=== PATIENT | female | born 1975 | race Two or more races ===

== ENCOUNTER 2019-12-09 15:38 | Outpatient (REF) | payer MEDICAID, SELFPAY ==
--- NOTE | 2019-12-09 | US_ITS ---
EXAMINATION: LOWER EXTREMITY VENOUS ULTRASOUND, RIGHT CLINICAL INFORMATION: Pain and swelling COMPARISON: None. TECHNIQUE: Doppler spectral analysis and color flow Doppler imaging was performed of the lower extremity. Compression and augmentation maneuvers were performed. FINDINGS: The visualized right common femoral, femoral, popliteal veins demonstrate normal compressibility and color fill-in without evidence of venous thrombosis. Visualized portions of the mid calf veins demonstrate normal color fill-in suggesting patency. ADDITIONAL FINDINGS: None. IMPRESSION: No evidence for right lower extremity deep vein thrombosis.
== END 2019-12-09 15:39 | disposition home or self-care (01) ==
LOC: HO.HMGCX 15:38
PROVIDERS: Absent Provider Family Medicine; PCP Family Medicine; Visit Provider Emergency Medicine
DX: M79.89 Other specified soft tissue disorders (principal)
CPT/HCPCS: 93971

== ENCOUNTER 2019-12-23 10:13 | Outpatient (REF) | payer MEDICAID, SELFPAY ==
--- NOTE | 2019-12-23 10:18 | XR_ITS ---
EXAMINATION: XR KNEES, STANDING AP XR KNEE, RIGHT XR KNEE, LEFT CLINICAL INFORMATION: Bilateral primary osteoarthritis knees. COMPARISON: Bilateral standing AP knees 11/19/2018, radiographs right knee 10/15/2018. TECHNIQUE: Each knee is imaged in standing AP, lateral, and axial patella views. There are 3 views of each side in a total of 6 views. FINDINGS: The right knee shows osteoarthritic changes greatest medial and lateral knee joint compartments with joint narrowing and osteophytes involving the femoral condyles and tibial plateau and posterior patella. There is borderline medial subluxation distal femur. Axial view patella shows no significant lateralization. There is no suprapatellar effusion. Hoffa's fat pad appears normal. Bony mineralization is normal. There is no destructive process. The left knee shows osteoarthritic changes greatest medial and lateral compartments of slightly lesser severity than that seen on the right. There are osteophytes involving the femoral condyles and tibial plateau and posterior patella. There is borderline medial subluxation distal femur. Axial view patella shows no lateralization. No suprapatellar effusion. Hoffa's fat pad is unremarkable. There is no destructive process. Normal bony mineralization. IMPRESSION: 1. Bilateral tricompartment osteoarthritis greatest medial lateral compartments, and greater on the right. 2. No suprapatellar effusion. No destructive process.
== END 2019-12-23 10:14 | disposition home or self-care (01) ==
LOC: HO.XRAY 10:13
PROVIDERS: PCP Family Medicine; Referring Provider Family Medicine; Visit Provider Orthopaedic Surgery
DX: M17.0 Bilateral primary osteoarthritis of knee (principal)
CPT/HCPCS: 20610; 73560; 73565; 99214; J1100

== ENCOUNTER 2020-11-04 17:07 | Emergency (ER) | payer MEDICAID, SELFPAY ==
[2020-11-04 17:29] VITALS: BP 141/68; PULSE 79; RESP 17; TEMP 37.1; O2SAT 95; BMI 53.1
--- NOTE | 2020-11-04 17:40 | ED.FEMALEGU ---
HPI - Female Genitourinary General Chief complaint: Urogenital-Female Stated complaint: yeast infection Time Seen by Provider: 11/04/20 17:40 History of Present Illness HPI Narrative: Patient complains of some burning with urination as well as a whitish odor is vaginal discharge there is no pelvic pain no abdominal pain no flank pain no back pain no fever no nausea no vomiting Related Data Previous Rx's Medication Instructions Recorded metronidazole 500 mg tablet 500 mg PO BID #14 tab 11/04/20 (Flagyl) Allergies Allergy/AdvReac Type Severity Reaction Status Date / Time No Known Allergies Allergy Verified 12/23/19 10:48 [No Known Allergies*] IV contrast Allergy Unknown unknown Uncoded 12/23/19 10:48 pollen Allergy Unknown unknown Uncoded 12/23/19 10:48 Review of Systems Review of Systems: Positive for vaginal discharge and dysuria Negatives are no fever no chills no headache no neck pain no chest pain or shortness of breath no abdominal pain no pelvic pain no nausea or vomiting no skin rash Yes all other systems are reviewed and are negative PMFSH Past Medical History Source: nursing notes reviewed Medical History Asthenia Bilateral primary osteoarthritis of knee HIV (human immunodeficiency virus infection) Social History Social History Alcohol intake: never Advance Directives: No Advance Directives Information Provided: No Patient : No Current occupational status: disabled Current occupation: Right Handed Physical Exam Vital Signs: Vital Signs: Last Vital Signs Temp 98.8 F 11/04/20 17:29 Pulse 79 11/04/20 17:29 Resp 17 11/04/20 17:29 BP 141/68 H 11/04/20 17:29 Pulse Ox 95 11/04/20 17:29 Body Mass Index 53.1 General appearance no acute distress Head is normocephalic atraumatic Neck is supple Respiratory no distress Abdomen soft nontender, no CVA tenderness The back full range of motion no tenderness Extremities for range of motion x4 Skin no rash Pelvic exam is deferred Course Course Course Narrative: Patient self swab for bacterial vaginosis From description of her discharge she is given Flagyl and Diflucan tablet The patient remains comfortable well-appearing and stable throughout the visit With urine still pending case is signed out to physician assistant blanco to evaluate for whether not there is urinary tract infection and dispo the patient Discharge Plan Discharge Clinical Impression: Vaginal discharge Patient Disposition: Home, Self-Care Additional Instructions: We treated for possible yeast infection with a dose of Diflucan We are also treating vaginal discharge with antibiotic Flagyl Follow with operations management professionals or primary doctor if not improved Return any time any worse condition or any concerns Prescriptions: New metronidazole [Flagyl] 500 mg tablet 500 mg PO BID Qty: 14 RF: 0 Referrals: Gregory Greenfield MD [Physician] - 10 days (Vaginal discharge)
[2020-11-04 19:03] LABS: Glucose Urine UA NEG (NEG); Leukocyte Esterase Urine NEG (NEG); Nitrite Urine NEG (NEG); Specific Gravity - Urine <= 1.005 (1.005-1.025); Urine Blood NEG (NEG); Urine Ketones NEG (NEG); Urine Protein NEG (NEG-TRACE)
[2020-11-04 19:04] LABS: Appearance Urine CLEAR; Color Urine STRAW
[2020-11-04 19:06] LABS: UPreg QC Valid YES; Urine Pregnancy NEGATIVE (NEGATIVE)
[2020-11-04] MEDS: Fluconazole 150 MG TABLET PO (19:21)
--- NOTE | 2020-11-04 19:30 | PC.NURSE ---
PT DID NOT GIVE PROBE KAELA URINE. PT DOES NOT WANT TO DO THE TEST. REFUSING. PROVIDER AWARE. OK TO D/C.
[2020-11-05 08:45] LABS: BV Int Neg Control Negative (Negative); BV Int Pos Control Positive (Positive)
== END 2020-11-04 19:40 | disposition home or self-care (01) ==
PROVIDERS: Physician Assistant Medical; Emergency Provider Internal Medicine
DX: N89.8 Other specified noninflammatory disorders of vagina (principal); B20 Human immunodeficiency virus [HIV] disease
CPT/HCPCS: 81003; 81025; 87480; 87510; 87660; 99283; 99284

== ENCOUNTER → 2020-11-16 12:10 | Outpatient (BNVA) | payer MEDICAID, SELFPAY | PROVIDERS: PCP Internal Medicine; Visit Provider Orthopaedic Surgery | DX: M17.0 Bilateral primary osteoarthritis of knee (principal) | CPT/HCPCS: 20610; 99212; J1100 ==

== ENCOUNTER 2021-07-12 09:19 | Outpatient (REF) | payer MEDICAID, SELFPAY ==
--- NOTE | ~2021-07-12 | XR_ITS ---
EXAMINATION: BILATERAL KNEE X-RAY CLINICAL INFORMATION: Bilateral knee pain COMPARISON: Previous exam most recent December 2019 TECHNIQUE: 3 views of each knee FINDINGS: Right: There is varus angulation. No fracture or dislocation is seen. There is marked medial femoral tibial joint space narrowing. There are osteophytes at the lateral femoral tibial and patellofemoral joints. There may be lateral subluxation of the patella on the sunrise view. There is no joint effusion. Left: Bone alignment is normal. No fracture or dislocation is seen. There is medial femoral tibial joint space narrowing. There are osteophytes at the lateral femoral tibial and patellofemoral joints. There may be lateral subluxation of the patella on the sunrise view. Evaluation for joint effusion is limited due to light film technique. No significant joint effusion is seen. XR/XR knee standing BI IMPRESSION: Bilateral arthritis.
--- NOTE | ~2021-07-12 | XR_ITS ---
EXAMINATION: BILATERAL KNEE X-RAY CLINICAL INFORMATION: Bilateral knee pain COMPARISON: Previous exam most recent December 2019 TECHNIQUE: 3 views of each knee FINDINGS: Right: There is varus angulation. No fracture or dislocation is seen. There is marked medial femoral tibial joint space narrowing. There are osteophytes at the lateral femoral tibial and patellofemoral joints. There may be lateral subluxation of the patella on the sunrise view. There is no joint effusion. Left: Bone alignment is normal. No fracture or dislocation is seen. There is medial femoral tibial joint space narrowing. There are osteophytes at the lateral femoral tibial and patellofemoral joints. There may be lateral subluxation of the patella on the sunrise view. Evaluation for joint effusion is limited due to light film technique. No significant joint effusion is seen. XR/XR knee LT 2V IMPRESSION: Bilateral arthritis.
--- NOTE | ~2021-07-12 | XR_ITS ---
EXAMINATION: BILATERAL KNEE X-RAY CLINICAL INFORMATION: Bilateral knee pain COMPARISON: Previous exam most recent December 2019 TECHNIQUE: 3 views of each knee FINDINGS: Right: There is varus angulation. No fracture or dislocation is seen. There is marked medial femoral tibial joint space narrowing. There are osteophytes at the lateral femoral tibial and patellofemoral joints. There may be lateral subluxation of the patella on the sunrise view. There is no joint effusion. Left: Bone alignment is normal. No fracture or dislocation is seen. There is medial femoral tibial joint space narrowing. There are osteophytes at the lateral femoral tibial and patellofemoral joints. There may be lateral subluxation of the patella on the sunrise view. Evaluation for joint effusion is limited due to light film technique. No significant joint effusion is seen. XR/XR knee RT 2V IMPRESSION: Bilateral arthritis.
== END 2021-07-12 09:20 | disposition home or self-care (01) ==
LOC: HO.HOSX 09:19
PROVIDERS: PCP Internal Medicine; Visit Provider Orthopaedic Surgery
DX: M17.0 Bilateral primary osteoarthritis of knee (principal)
CPT/HCPCS: 20610; 73560; 73565; 99212; J1100

== ENCOUNTER 2021-08-11 11:05 | Emergency (ER) | payer MEDICAID, SELFPAY ==
--- NOTE | ~2021-08-11 | CT_ITS ---
EXAMINATION: CT ABDOMEN AND PELVIS WITHOUT CONTRAST CLINICAL INFORMATION: Left lower quadrant pain COMPARISON: 01/01/2019 TECHNIQUE: Multidetector volumetric imaging was performed from the superior aspect of the liver through the pubic symphysis. Sagittal and coronal reformatted images were obtained on the technologist's workstation. This CT examination was performed using dose optimization techniques as appropriate, variously including the following: *Automated exposure control *Adjustment of mA and/or kV according to patient size (this includes techniques or standardized protocols for targeted exams where dose is matched to indication/reason for exam; i.e. extremities or head) *Use of iterative reconstruction technique DLP: 1502 mGy-cm FINDINGS: LUNG BASES: Mild bilateral atelectasis right greater than left. LIVER, GALLBLADDER, AND BILIARY TREE: The liver is normal in size, shape, and attenuation. No focal hepatic lesion or biliary ductal dilatation is present. The gallbladder is unremarkable with no evidence of radiopaque gallstones, gallbladder wall thickening, or obvious pericholecystic inflammatory changes. PANCREAS: Unremarkable. SPLEEN: Unremarkable. There is no evidence for a suspicious fluid collection. There are scattered diverticula disease in the colon but no evidence for diverticulitis. ADRENAL GLANDS: Unremarkable. KIDNEYS AND URETERS: The kidneys are normal in size, shape, and attenuation. No hydronephrosis, hydroureter, or calculi seen. No perinephric stranding. BLADDER: Unremarkable. GASTROINTESTINAL TRACT: The bowel pattern is felt to be nonobstructing. There is no free fluid. ABDOMINAL WALL: Once again omental herniation of fat in the upper abdominal wall. Not significantly changed from previous. This does not contain bowel. LYMPH NODES: Normal. VASCULAR: Unremarkable. PELVIC VISCERA: Once again density in left adnexa may well represent ovarian tissue. Differential would include prominent lymph node but similar to previous.. Higher in the adnexa on the left another structure is seen measuring 2.1 x 1.1 cm. Again difficult to say if this was present previously as the uterus is occupying the region. Higher in the pelvis on the right there is a structure of indeterminate etiology. This is measuring 3.1 x 2.5 cm. Etiology is indeterminate. This could be related to the uterine ligamental. Difficult to say if it was present previously as previously the patient's uterus was contacted is now been removed. OSSEOUS STRUCTURES: Unremarkable. CT/CT abdomen pelvis wo con IMPRESSION: Diverticula disease mild in the sigmoid but no evidence for diverticulitis. The bowel pattern is nonobstructing. There is no suspicious fluid collection. As described solid-appearing structures in the high adnexal regions bilaterally of indeterminate etiology. This could be related to the uterine ligaments.. Differential would include ovarian tissue versus other. There has been hysterectomy from the previous exam and difficult to evaluate if these structures were present previously. Etiology of these structures is indeterminate. I would in the least recommend follow-up study to continue evaluation. 3 months. Consider MR of the pelvis pre and postcontrast for definitive evaluation at this time. Ultrasound may also be helpful but difficult exam due to the patient body habitus In the lower region on the left structure is seen which may represent a prominent node but this is similar to previous exam. Attention to follow-up as well. Fleischner guidelines were followed.
[2021-08-11 11:07] VITALS: BP 127/71; PULSE 86; RESP 18; TEMP 36.4; O2SAT 97; BMI 60.3
--- NOTE | 2021-08-11 11:39 | ED_ITS ---
HPI - Abdominal Pain General Chief Complaint: Abdominal Pain Stated Complaint: Lower abd pain Time Seen by Provider: 08/11/21 11:30 Source: patient Mode of arrival: ambulatory Limitations: no limitations History of Present Illness HPI narrative: Patient comes to the emergency room complaining left lower quadrant pain and suprapubic pain. Patient states she has that she has been having intermittent abdominal pain for several weeks. Patient also complaining of dysuria, no hematuria, no fever or chills, no flank pain. Patient states that she is currently taking penicillin 500 mg b.i.d. for a dental infection. Related Data Previous Rx's Medication Instructions Recorded metronidazole 500 mg tablet 500 mg PO BID #14 tabs 11/04/20 (Flagyl) ibuprofen 600 mg tablet 600 mg PO TID PRN pain #20 tabs 08/11/21 Allergies Allergy/AdvReac Type Severity Reaction Status Date / Time No Known Allergies Allergy Verified 07/12/21 09:24 [No Known Allergies*] IV contrast Allergy Unknown unknown Uncoded 07/12/21 09:24 pollen Allergy Unknown unknown Uncoded 07/12/21 09:24 Review of Systems Review of Systems Constitutional : No Weight loss, No Fever, No Chills, No Night Sweats, No Fatigue, No Malaise ENT/Mouth : No Hearing loss, No Ear Pain, No Nasal Congestion, No Sinus Pain, No Hoarseness, No sore throat, No Rhinorrhea, No Swallowing Difficulty Eyes: No Eye Pain, No Swelling, No Redness, No Foreign Body, No Discharge, No Vision Changes Cardiovascular : No Chest Pain, No SOB, No Dyspnea on Exertion, No Orthopnea, No Edema, No Palpitations Respiratory : No Cough, No Sputum, No Wheezing, No Smoke Exposure, No Dyspnea Gastrointestinal : No Nausea, No Vomiting, No Diarrhea, No Constipation, complaining of left lower quadrant pain and suprapubic pain Genitourinary : no irregular bleeding, No Dysuria, No Urinary Frequency, No Hematuria, No Urinary Incontinence, No Urgency, No Flank Pain, No Urinary Flow Changes, No Hesitancy Musculoskeletal : No joint pain, No Myalgias, No Joint Swelling Skin : No Skin Lesions, No rash Neuro : No Weakness, No Numbness, No Paresthesias, No Loss of Consciousness, No Dizziness, No Headache Psych : No Anxiety/Panic, No Depression, No SI/HI/AH/VH, No Social Issues, Heme/Lymph: No Bruising, No Bleeding,No Lymphadenopathy Endocrine : No Polyuria, No Polydipsia, No Temperature Intolerance [facility] Past Medical History Medical History Asthenia Bilateral primary osteoarthritis of knee HIV (human immunodeficiency virus infection) Social History Social History Alcohol intake: never Advance Directives: No Advance Directives Information Provided: No Current occupational status: disabled Current occupation: Right Handed Physical Exam ED Vital Signs: Vital Signs - 24 hr 08/11/21 11:07 08/11/21 17:12 08/11/21 19:24 Temperature 97.6 F 98.5 F Pulse Rate 86 59 65 Respiratory Rate 18 14 16 Blood Pressure 127/71 161/88 H 152/81 H Pulse Oximetry 97 98 98 Oxygen Delivery Method Room Air Room Air Room Air BMI result Body Mass Index 60.3 Const Other: Appearance: Alert. Oriented X3. No acute distress. Eyes: Pupils equal, round and reactive to light. ENT: Pharynx normal. Neck: Normal inspection. Neck supple. No lymph nodes noted. No crepitus CVS: Normal heart rate and rhythm. Pulses normal. Normal S1 and S2 Respiratory: No respiratory distress. Breath sounds normal. No Wheezing. No rales Abdomen: Soft , tenderness to palpation in the left lower quadrant and suprapubic area. No rebound, guarding Skin: Skin warm and dry. Normal skin color. Normal skin turgor. Extremities: No lower extremity edema. No Lacerations. No Rash Neuro: Oriented X 3. No motor deficit. No sensory deficit. Moving all extremities. No slurred speech. CN 2 through 12 grossly intact Psych: calm, cooperative, normal affect Course Course Course Narrative: Patient receiving IV fluids and Toradol. Labs and imaging pending No acute findings on labs and imaging. Patient's pain likely musculoskeletal, muscular versus the ligament. CT scan was difficult to evaluate. However, it is known that patient has had hysterectomy. If patient continues having discomfort, she may need an MRI MDM - Abdominal Pain Lab Data Result diagrams: 08/11/21 12:08 08/11/21 12:08 Labs: Lab Results 08/11/21 08/11/21 08/11/21 Range/Units 12:08 12:08 12:08 WBC 2.5 L (4.8-10.8) X10*3/uL RBC 4.52 (4.20-5.50) X10*6/uL Hgb 13.4 (12.0-16.0) g/dl Hct 40.7 (37.0-47.0) % MCV 90.0 (80.0-98.0) fL MCH 29.6 (27.0-33.0) pg MCHC 32.9 (31.0-35.0) g/dl RDW 13.2 (11.0-16.0) % Plt Count 198 (160-400) X10*3/uL MPV 11.1 (9.4-12.3) fL Immature Gran % (Auto) 1.2 H (0.0-0.4) % Neut % (Auto) 33.5 L (45-73) % Lymph % (Auto) 51.0 H (20-40) % [place] % (Auto) 10.7 (2-11) % Eos % (Auto) 2.8 (0-4) % Baso % (Auto) 0.8 (0-2) % Lymph # (Auto) 1.3 (1.2-4.9) X10*3/uL [place] # (Auto) 0.3 (0.1-1.2) X10*3/uL Eos # (Auto) 0.1 (0.0-0.4) X10*3/uL Baso # (Auto) 0.0 (0.0-0.2) X10*3/uL Abs Immat Gran (auto) 0.03 (0.00-0.03) X10*3/uL Absolute Neuts (auto) 0.9 L (2.0-8.3) x10*3/uL Absolute Nucleated RBC 0.000 (0.0-0.012) X10*3/uL Nucleated RBC % (auto) 0.0 (0.0-0.2) /100WBC Smear Tech's Comments VERIFIED Sodium 139 (135-145) mmol/L Potassium 3.9 (3.3-5.1) mmol/L Chloride 105 (96-108) mmol/L Carbon Dioxide 26 (22-29) mmol/L Anion Gap 12 (12-20) BUN 12 (9-16) mg/dL Creatinine 0.85 (0.5-1.4) mg/dL Estim Creat Clear Calc 116.1 Estimated GFR > 60 Random Glucose 113 (60-115) mg/dL Calcium 9.2 (8.4-10.2) mg/dL Total Bilirubin 0.3 (0.0-1.0) mg/dL Direct Bilirubin < 0.2 (0.0-0.5) mg/dL AST 29 (5-31) U/L ALT 33 H (0-31) U/L Alkaline Phosphatase 61 (39-117) U/L Total Protein 7.3 (6.5-8.0) g/dL Albumin 3.8 (3.5-5.0) g/dL Beta HCG, Quant < 2 mIU/mL Urine Color Urine Appearance Urine pH (5.0-8.0) Ur Specific [place] (1.005-1.025) Urine Protein (NEG-TRACE) MG/DL Urine Glucose (UA) (NEG) MG/DL Urine Ketones (NEG) MG/DL Urine Blood (NEG) Urine Nitrite (NEG) Ur Leukocyte Esterase (NEG) 08/11/21 Range/Units 19:29 WBC (4.8-10.8) X10*3/uL RBC (4.20-5.50) X10*6/uL Hgb (12.0-16.0) g/dl Hct (37.0-47.0) % MCV (80.0-98.0) fL MCH (27.0-33.0) pg MCHC (31.0-35.0) g/dl RDW (11.0-16.0) % Plt Count (160-400) X10*3/uL MPV (9.4-12.3) fL Immature Gran % (Auto) (0.0-0.4) % Neut % (Auto) (45-73) % Lymph % (Auto) (20-40) % [place] % (Auto) (2-11) % Eos % (Auto) (0-4) % Baso % (Auto) (0-2) % Lymph # (Auto) (1.2-4.9) X10*3/uL [place] # (Auto) (0.1-1.2) X10*3/uL Eos # (Auto) (0.0-0.4) X10*3/uL Baso # (Auto) (0.0-0.2) X10*3/uL Abs Immat Gran (auto) (0.00-0.03) X10*3/uL Absolute Neuts (auto) (2.0-8.3) x10*3/uL Absolute Nucleated RBC (0.0-0.012) X10*3/uL Nucleated RBC % (auto) (0.0-0.2) /100WBC Smear Tech's Comments Sodium (135-145) mmol/L Potassium (3.3-5.1) mmol/L Chloride (96-108) mmol/L Carbon Dioxide (22-29) mmol/L Anion Gap (12-20) BUN (9-16) mg/dL Creatinine (0.5-1.4) mg/dL Estim Creat Clear Calc Estimated GFR Random Glucose (60-115) mg/dL Calcium (8.4-10.2) mg/dL Total Bilirubin (0.0-1.0) mg/dL Direct Bilirubin (0.0-0.5) mg/dL AST (5-31) U/L ALT (0-31) U/L Alkaline Phosphatase (39-117) U/L Total Protein (6.5-8.0) g/dL Albumin (3.5-5.0) g/dL Beta HCG, Quant mIU/mL Urine Color YELLOW Urine Appearance HAZY Urine pH 5.5 (5.0-8.0) Ur Specific [place] >= 1.030 H (1.005-1.025) Urine Protein TRACE (NEG-TRACE) MG/DL Urine Glucose (UA) NEG (NEG) MG/DL Urine Ketones NEG (NEG) MG/DL Urine Blood NEG (NEG) Urine Nitrite NEG (NEG) Ur Leukocyte Esterase NEG (NEG) Imaging Data CT scan - abdomen: Radiologist's impression: FINDINGS: LUNG BASES: Mild bilateral atelectasis right greater than left.? LIVER, GALLBLADDER, AND BILIARY TREE: The liver is normal in size, shape, and attenuation. No focal hepatic lesion or biliary ductal dilatation is present. The gallbladder is unremarkable with no evidence of radiopaque gallstones, gallbladder wall thickening, or obvious pericholecystic inflammatory changes.? PANCREAS: Unremarkable.? SPLEEN: Unremarkable. There is no evidence for a suspicious fluid collection. There are scattered diverticula disease in the colon but no evidence for diverticulitis. ADRENAL GLANDS: Unremarkable.? KIDNEYS AND URETERS: The kidneys are normal in size, shape, and attenuation. No hydronephrosis, hydroureter, or calculi seen. No perinephric stranding. ? BLADDER: Unremarkable.? GASTROINTESTINAL TRACT: The bowel pattern is felt to be nonobstructing. There is no free fluid.? ABDOMINAL WALL: Once again omental herniation of fat in the upper abdominal wall. Not significantly changed from previous. This does not contain bowel. LYMPH NODES: Normal. VASCULAR: Unremarkable. PELVIC VISCERA: Once again density in left adnexa may well represent ovarian tissue. Differential would include prominent lymph node but similar to previous.. Higher in the adnexa on the left another structure is seen measuring 2.1 x 1.1 cm. Again difficult to say if this was present previously as the uterus is occupying the region. Higher in the pelvis on the right there is a structure of indeterminate etiology. This is measuring 3.1 x 2.5 cm. Etiology is indeterminate. This could be related to the uterine ligamental. Difficult to say if it was present previously as previously the patient's uterus was contacted is now been removed. OSSEOUS STRUCTURES: Unremarkable.? CT/CT abdomen pelvis wo con IMPRESSION: Diverticula disease mild in the sigmoid but no evidence for diverticulitis. The bowel pattern is nonobstructing. There is no suspicious fluid collection. ? As described solid-appearing structures in the high adnexal regions bilaterally of indeterminate etiology. This could be related to the uterine ligaments.. Differential would include ovarian tissue versus other. There has been hysterectomy from the previous exam and difficult to evaluate if these structures were present previously. Etiology of these structures is indeterminate. I would in the least recommend follow-up study to continue evaluation. 3 months. Consider MR of the pelvis pre and postcontrast for definitive evaluation at this time. Ultrasound may also be helpful but difficult exam due to the patient body habitus ? In the lower region on the left structure is seen which may represent a prominent node but this is similar to previous exam. Attention to follow-up as well. ? ? ? Fleischner guidelines were followed. Discharge Plan Discharge Clinical Impression: Abdominal pain Patient Disposition: Home, Self-Care Instructions: Abdominal Pain (ED) Additional Instructions: Please follow-up with your primary care physician tomorrow. If you have any worsening or new symptoms, please return to the emergency room or call [phone] Prescriptions: New ibuprofen 600 mg tablet 600 mg PO TID PRN (Reason: pain) Qty: 20 0RF No Action metronidazole [Flagyl] 500 mg tablet 500 mg PO BID Qty: 14 0RF
[2021-08-11] MEDS: Ketorolac Tromethamine 30 MG/ML VIAL IVPUSH (12:08)
[2021-08-11 12:17] LABS: Basophils Percent Auto 0.8 % (0-2); Eosinophils Absolute Auto 0.1 X10*3/uL (0.0-0.4); Eosinophils Percent Auto 2.8 % (0-4); Hematocrit 40.7 % (37.0-47.0); Hemoglobin 13.4 g/dl (12.0-16.0); Imm Gran Abs Auto 0.03 X10*3/uL (0.00-0.03); Imm Gran Pct Auto 1.2 % (0.0-0.4); Lymphocytes Absolute Auto 1.3 X10*3/uL (1.2-4.9); MANUAL DIFF FLAG SCAN; Mean Corpuscular HGB Conc 32.9 g/dl (31.0-35.0); Mean Corpuscular Hemoglobin 29.6 pg (27.0-33.0); Mean Platelet Volume 11.1 fL (9.4-12.3); Monocytes Absolute Auto 0.3 X10*3/uL (0.1-1.2); Monocytes Percent Auto 10.7 % (2-11); Neutrophils Absolute Auto 0.9 x10*3/uL (2.0-8.3); Neutrophils Percent Auto 33.5 % (45-73); Platelet Count 198 X10*3/uL (160-400); Red Blood Count 4.52 X10*6/uL (4.20-5.50); Red Cell Distribution Width 13.2 % (11.0-16.0); SCAN SMEAR FLAG 1
[2021-08-11 12:21] LABS: White Blood Count 2.5 X10*3/uL (4.8-10.8)
[2021-08-11 12:35] LABS: Anion Gap 12 (12-20); Blood Urea Nitrogen 12 mg/dL (9-16); Calcium 9.2 mg/dL (8.4-10.2); Carbon Dioxide 26 mmol/L (22-29); Chloride 105 mmol/L (96-108); Creatinine Clr Calc Pharmacy 116.1; Estimated Glomerular Filt Rate > 60; Glucose Random 113 mg/dL (60-115); Potassium 3.9 mmol/L (3.3-5.1); Sodium 139 mmol/L (135-145)
[2021-08-11 12:36] LABS: SLIDE REVIEW VERIFIED
[2021-08-11 12:39] LABS: Alanine Aminotransferase 33 U/L (0-31); Albumin Level 3.8 g/dL (3.5-5.0); Alkaline Phosphatase 61 U/L (39-117); Aspartate Amino Transferase 29 U/L (5-31); Bilirubin Direct < 0.2 mg/dL (0.0-0.5); Bilirubin Total 0.3 mg/dL (0.0-1.0); Total Protein 7.3 g/dL (6.5-8.0)
[2021-08-11 12:45] LABS: HCG Quantitative < 2 mIU/mL
[2021-08-11 17:12] VITALS: BP 161/88; PULSE 59; RESP 14; O2SAT 98
[2021-08-11 19:24] VITALS: BP 152/81; PULSE 65; RESP 16; TEMP 36.9; O2SAT 98
[2021-08-11 19:38] LABS: Appearance Urine HAZY; Color Urine YELLOW; Glucose Urine UA NEG (NEG); Leukocyte Esterase Urine NEG (NEG); Nitrite Urine NEG (NEG); PH 5.5 (5.0-8.0); Specific Gravity - Urine >= 1.030 (1.005-1.025); Urine Blood NEG (NEG); Urine Ketones NEG (NEG); Urine Protein TRACE MG/DL (NEG-TRACE)
== END 2021-08-11 20:14 | disposition home or self-care (01) ==
PROVIDERS: Emergency Provider Emergency Medicine; PCP Internal Medicine
DX: R10.32 Left lower quadrant pain (principal)
CPT/HCPCS: 36415; 74176; 80048; 81003; 82248; 84702; 85025; 96374; 99284; J1885

== ENCOUNTER 2021-08-18 07:28 | Outpatient (REF) | payer MEDICAID, SELFPAY | END 2021-08-18 07:29 | disposition home or self-care (01) | LOC: HO.RADIR 07:28 | PROVIDERS: Visit Provider Internal Medicine | DX: M17.0 Bilateral primary osteoarthritis of knee (principal); Z53.9 Procedure and treatment not carried out, unspecified reason | CPT/HCPCS: J1020 ==

== ENCOUNTER → 2021-12-23 09:01 | Outpatient (BNVA) | payer MEDICAID, SELFPAY | PROVIDERS: PCP Internal Medicine; Visit Provider Orthopaedic Surgery | DX: M17.0 Bilateral primary osteoarthritis of knee (principal); E66.01 Morbid (severe) obesity due to excess calories; L98.7 Excessive and redundant skin and subcutaneous tissue; B20 Human immunodeficiency virus [HIV] disease; Z68.43 Body mass index [BMI] 50.0-59.9, adult | CPT/HCPCS: 99212 ==

== ENCOUNTER → 2022-02-02 11:05 | Outpatient (BNVA) | payer MEDICAID, SELFPAY | PROVIDERS: PCP Internal Medicine; Visit Provider Anesthesiology | DX: M17.0 Bilateral primary osteoarthritis of knee (principal); E66.01 Morbid (severe) obesity due to excess calories; Z68.43 Body mass index [BMI] 50.0-59.9, adult | CPT/HCPCS: 99202 ==

== ENCOUNTER 2022-12-07 10:07 | Emergency (ER) | payer MEDICAID, SELFPAY ==
--- NOTE | ~2022-12-07 | XR_ITS ---
EXAMINATION: XR TIBIA AND FIBULA, RIGHT CLINICAL INFORMATION: Pain and swelling COMPARISON: None available. TECHNIQUE: AP and lateral views of the right tibia and fibula were obtained. FINDINGS: There is advanced narrowing of the medial joint space of the knee however the tibia and fibula are intact. Arthritic activity seen along the tibiotalar joint noted as well. XR/XR tibia fibula RT 2V IMPRESSION: No acute findings.
--- NOTE | ~2022-12-07 | XR_ITS ---
EXAMINATION: XR KNEE, RIGHT CLINICAL INFORMATION: Knee pain COMPARISON: None available. TECHNIQUE: Four views of the right knee. FINDINGS: There is severe medial degenerative change with joint space narrowing and marginal spurring, and subchondral sclerosis. In the right knee, no fracture, dislocation or destructive lesion or joint effusion. XR/XR knee RT 3V IMPRESSION: Advanced degenerative change. No acute abnormality.
--- NOTE | ~2022-12-07 | US_ITS ---
EXAMINATION: US VENOUS ULTRASOUND WITH DOPPLER LOWER EXTREMITY, RIGHT CLINICAL INFORMATION: Posterior calf pain COMPARISON: None available. TECHNIQUE: Ultrasound of the deep veins is performed from the hip to the calf with compression sonography and color and pulse Doppler assessment. Spectral analysis with color-flow imaging is performed. FINDINGS: There is normal venous compression and respiratory variation and augmented flow. The visualized common femoral vein, superficial femoral vein, profunda femoral vein, popliteal vein, and the trifurcation region shows no evidence of deep venous thrombosis. There is no significant popliteal fossa cyst. No abnormal fluid collections seen in the anterior glynn. If the patient's symptoms persist, followup ultrasound in 5 days 7 days might be of value to exclude proximal propagation from a non-visualized calf vein. US/US venous duplex LE RT IMPRESSION: No DVT demonstrated in the right lower extremity.
[2022-12-07 10:32] VITALS: BP 165/80; PULSE 78; RESP 20; TEMP 36.6; O2SAT 97; BMI 56.0
[2022-12-07 12:08] VITALS: BP 152/85; PULSE 62; RESP 18; TEMP 37; O2SAT 99
--- NOTE | 2022-12-07 13:41 | ED.LOWEXIN ---
HPI - Extremity Injury (Lower) General Chief Complaint: Extremity Injury, Lower Stated Complaint: R leg pain Time Seen by Provider: 12/07/22 12:01 Source: patient and RN notes reviewed Mode of arrival: ambulatory Limitations: no limitations History of Present Illness HPI Narrative: This is a 47-year-old female presenting to the emergency department with complaints of right knee pain, swelling, and calf tenderness x3 months. Patient states that 3 months ago she slipped on a slipper and fell backwards, and her leg went behind her and she fell on top of it. She has had continued pain since. She called Dr. Nichole to follow-up with him however she is unable to see him until next week. She states that she has had no other new injury or trauma. She states that she often times takes flights back and forth to [place] to see her partner. She denies any chest pain or shortness of breath. Has been taking Tylenol for her symptoms which has provided her with some relief. No other complaints or concerns at this time. complaint: knee injury and leg injury Onset (ago): month(s) Place: home Severity: moderate Relieving factors: nothing Exacerbating factors: nothing Associated symptoms: swelling Other symptoms: none Related Data Previous Rx's Medication Instructions Recorded metronidazole 500 mg tablet 500 mg PO BID #14 tabs 11/04/20 (Flagyl) ibuprofen 600 mg tablet 600 mg PO TID PRN pain #20 tabs 08/11/21 celecoxib 100 mg capsule 200 mg (2 x 100 mg) PO BID 30 days 07/21/22 #120 caps acetaminophen 325 mg tablet 650 mg (2 x 325 mg) PO QID PRN 12/07/22 (Tylenol) pain #30 tabs ibuprofen 800 mg tablet 800 mg PO Q8H PRN pain #30 tabs 12/07/22 Allergies Allergy/AdvReac Type Severity Reaction Status Date / Time IV contrast Allergy Unknown Anaphylaxis Uncoded 12/07/22 10:35 pollen Allergy Unknown unknown Uncoded 02/02/22 11:50 Review of Systems Review of Systems: Yes all other systems are reviewed and are negative Constitutional: Constitutional: Reports as per [facility] Past Medical History Medical History Asthenia Bilateral primary osteoarthritis of knee HIV (human immunodeficiency virus infection) Social History Social History Alcohol intake: never Smoked in Last 30 Days: No Use of substances other than those prescribed or required for medical reasons: No Advance Directives: No Advance Directives Information Provided: No Current occupational status: disabled Current occupation: Right Handed Physical Exam Vital Signs: Vital Signs: Last Vital Signs Temp 98.6 F 12/07/22 17:31 Pulse 60 12/07/22 17:31 Resp 16 12/07/22 17:31 BP 141/74 H 12/07/22 15:23 Pulse Ox 97 12/07/22 17:31 O2 Del Method Room Air 12/07/22 17:31 BMI result Body Mass Index 56.0 Const: General: cooperative, comfortable and no acute distress Orientation/consciousness: patient oriented x3 Limitations: no limitations HEENT: Head: Yes normal to inspection, Yes normocephalic and Yes atraumatic Ears: hearing grossly normal bilaterally General nose exam: Normal external nose present Face and sinus: Yes normal facial exam Mouth: Normal oral and palatal mucosa present, oropharynx normal and moist mucous membranes Throat: Yes posterior oropharynx normal Eyes: General: appearance normal, both eyes and all related structures Eyelids: Yes eyelids normal Conjunctivae: conjunctivae normal Sclerae: sclerae normal Pupils: Equal, round and reactive pupils present EOM: EOMs intact bilaterally Neck: Neck: Yes normal visual inspection, Yes full ROM and Yes no lymphadenopathy Lymphatic: no lymphadenopathy noted Chest: Chest palpation & inspection: normal inspection of the chest Resp: Effort & Inspection: normal respiratory effort and able to speak in complete sentences Auscultation: clear to auscultation bilaterally, no crackles, no rales, no rhonchi and no wheezes Cardio: Rate: regular rate Rhythm: regular rhythm Heart sounds: S1 normal heart sound present and S2 normal heart sound present GI: Inspection: Yes normal to inspection Skin: General skin exam: no rashes or lesions noted Trauma: no lacerations or abrasions Wounds: no wounds Neuro: General: patient oriented x3 and moves all extremities Cranial nerves: Yes Equal, round and reactive pupils present Extrem: Other: Right lower extremity is well perfused, patient has soft, non indurated region of swelling to her anterior glynn which is exquisitely tender to palpation. Patient is tenderness palpation along the right knee. Patient also has calf tenderness. Good DP pulses noted bilaterally. No overlying erythema General: Yes normal to inspection Right upper extremity: normal to inspection Left upper extremity: normal to inspection Right lower extremity: normal to inspection Left lower extremity: normal to inspection Course Reevaluation(s) Reevaluation #1: X-ray of tibia and fibula was unremarkable. There is advanced degenerative changes seen in the right knee. Ultrasound did not show any DVT. There is no abnormal fluid collections seen in the anterior glynn. Symptoms likely due to osteoarthritis of the right knee. Patient discharged on Tylenol and ibuprofen given return precautions. Patient stable for discharge. Time: 16:42 Medications Administered Discontinued Medications Generic Name Dose Route Start Last Admin Trade Name Freq PRN Reason Stop Dose Admin Oxycodone HCl 5 mg 12/07/22 13:36 12/07/22 14:00 Oxycodone Hcl Immed Release 5 Mg Tablet PO 12/07/22 13:37 5 mg ONCE ONE Administration Medical Decision Making Medical Decision Making [facility] Narrative: 47-year-old female presenting to the emergency department with complaints of right knee pain, swelling, and calf tenderness x3 months. Patient had traumatic event which occurred 3 months ago which caused her to do her leg. She has had swelling since. Differential diagnoses include calf strain, contusion, hematoma, fracture. Less likely compartment syndrome. Plan: Tib-fib x-ray, knee x-ray, ultrasound right lower extremity Differential Diagnosis Differential Diagnoses: The differential diagnosis associated with the presentation includes See above Admission/Observation Consideration of admission/observation: Escalation of care including admission/observation considered Patient would have been admitted to the hospital had her work up had any findings where hospital admission was appropriate and her clinical presentation warranted hospital admission. Radiology Impression Discussion of test interpretation with radiology: I have reviewed the radiologist's reading. Radiologist Impression: EXAMINATION: XR TIBIA AND FIBULA, RIGHT CLINICAL INFORMATION: Pain and swelling COMPARISON: None available. TECHNIQUE: AP and lateral views of the right tibia and fibula were obtained. FINDINGS: There is advanced narrowing of the medial joint space of the knee however the tibia and fibula are intact. Arthritic activity seen along the tibiotalar joint noted as well. XR/XR tibia fibula RT 2V IMPRESSION: No acute findings. Dictated By: Gurdeep Russ MD EXAMINATION: XR KNEE, RIGHT CLINICAL INFORMATION: Knee pain COMPARISON: None available. TECHNIQUE: Four views of the right knee. FINDINGS: There is severe medial degenerative change with joint space narrowing and marginal spurring, and subchondral sclerosis. In the right knee, no fracture, dislocation or destructive lesion or joint effusion. XR/XR knee RT 3V IMPRESSION: Advanced degenerative change. No acute abnormality. Dictated By: Gurdeep Russ MD EXAMINATION: US VENOUS ULTRASOUND WITH DOPPLER LOWER EXTREMITY, RIGHT CLINICAL INFORMATION: Posterior calf pain COMPARISON: None available. TECHNIQUE: Ultrasound of the deep veins is performed from the hip to the calf with compression sonography and color and pulse Doppler assessment. Spectral analysis with color-flow imaging is performed. FINDINGS: There is normal venous compression and respiratory variation and augmented flow. The visualized common femoral vein, superficial femoral vein, profunda femoral vein, popliteal vein, and the trifurcation region shows no evidence of deep venous thrombosis. There is no significant popliteal fossa cyst. No abnormal fluid collections seen in the anterior glynn. If the patient's symptoms persist, followup ultrasound in 5 days 7 days might be of value to exclude proximal propagation from a non-visualized calf vein. US/US venous duplex LE RT IMPRESSION: No DVT demonstrated in the right lower extremity. Dictated By: Gurdeep Russ MD Discharge Plan Discharge Clinical Impression: Knee pain, right Patient Disposition: Home, Self-Care Instructions: Knee Pain (ED) Additional Instructions: You have severe arthritis in your right knee which is causing you to have your pain. Please follow-up with Dr. Nichole as scheduled and several days. Gentle range of motion, massage, ice can also help with your symptoms. If any new or worsening symptoms occur including but not limited to chest pain or shortness breath, please return for re-evaluation. Prescriptions: New ibuprofen 800 mg tablet 800 mg PO Q8H PRN (Reason: pain) Qty: 30 0RF acetaminophen [Tylenol] 325 mg tablet 650 mg PO QID PRN (Reason: pain) Qty: 30 0RF No Action celecoxib 100 mg capsule 200 mg PO BID 30 Days Qty: 120 4RF metronidazole [Flagyl] 500 mg tablet 500 mg PO BID Qty: 14 0RF ibuprofen 600 mg tablet 600 mg PO TID PRN (Reason: pain) Qty: 20 0RF Interventions: ED Discharge Assessment Last Done: 12/07/22 17:32 Discharge Date/Time: 12/07/22 17:32
[2022-12-07] MEDS: oxyCODONE HCl Immed Release 5 MG TABLET PO (14:00)
[2022-12-07 15:23] VITALS: BP 141/74; PULSE 64; RESP 14; TEMP 36.2; O2SAT 97
[2022-12-07 17:31] VITALS: PULSE 60; RESP 16; TEMP 37; O2SAT 97
== END 2022-12-07 17:32 | disposition home or self-care (01) ==
PROVIDERS: Emergency Provider Emergency Medicine; PCP Internal Medicine
DX: M25.561 Pain in right knee (principal); R60.0 Localized edema; Z79.899 Other long term (current) drug therapy
CPT/HCPCS: 73562; 73590; 93971; 99284

== ENCOUNTER 2022-12-15 11:10 | Outpatient (AMB) | payer MEDICAID, SELFPAY ==
--- NOTE | 2022-12-15 11:38 | MHC.OFFVIS ---
Intake Vital Signs 12/15/22 11:39 Height 5 ft 3 in Weight 316 lb BMI 56.0 Intake Visit Reasons: ov- Bilateral primary osteoarthritis of knee Intake Note: Monica is a 46 year old female who presents today for a follow up of her bilateral knee pain. Right worse than left. Patient reports that she is struggling with continued pain. Allergies IV contrast Allergy (Unknown, Uncoded 12/07/22 10:35) Anaphylaxis pollen Allergy (Unknown, Uncoded 02/02/22 11:50) unknown HPI ov- Bilateral primary osteoarthritis of knee HPI Details Monica is a 47 year old woman with bilateral knee OA, R>L. She returns with complaints of bilateral knee pain, R>L. She has pain with daily activity and feels limited in her ADLs. At her last appointment she was referred to Pain Management and told to continue to work on weight management in order to discuss surgery. Her current weight is 309lbs and she has been limited in her daily activities due to her pain & weakness. She says remaining active is difficult for her, and she has primarily been trying to eat smaller portions. She was seen in the ED on 12/07/22 with complaints of worsening right knee & calf pain. An ultrasound was performed and was negative for DVT. She denies any falls or known injury. She was prescribed Celebrex by Pain Management. She has a history of lap band surgery, but she could not tolerate the band and this was removed. She reports being hesitant to see Bariatrics again as she has a poor history with prior surgeries, including a hysterectomy. She has asthenia and HIV and is on medication for this. She uses a walker and has been on permanent disability since she was 17. [facility] Medical History (Updated 12/15/22 @ 11:54 by Luis A Snowden) Asthenia HIV (human immunodeficiency virus infection) Bilateral primary osteoarthritis of knee Social History Alcohol intake: never Current occupational status: disabled Current occupation: Right Handed Review of Systems Const All systems reviewed & are unremarkable except as noted in HPI and below Physical Exam Vital Signs: BMI result Body Mass Index 56.0 Const General: no acute distress, alert and awake Orientation/consciousness: patient oriented x3 HEENT Head: Yes normocephalic and Yes atraumatic Eyes EOM: EOMs intact bilaterally Resp Effort & Inspection: normal respiratory effort and able to speak in complete sentences Cardio Jugular venous distension: no JVD Skin General skin exam: turgor normal Rashes: no rashes Neuro General: patient oriented x3 Extrem Other: Bilateral Knees: gait antalgia medial compartement ttp Psych Appearance: grossly normal Affect: normal affect Attitude: cooperative Office Procedures Joint Injection/Drain Joint Injection/Drain Details: Injected 1 mL of Decadron and 3 mL 1% lidocaine and 3 mL of 0.25% Marcaine. Site was prepped using aseptic technique. Patient tolerated the procedure well. Primary Site: right knee Approach Used: anterolateral Coding 01745 - Large joint Procedure code (CPT) selection complete Results Reviewed Results Reviewed: 12/15/22 12:03 BUPivacaine MPF 0.25 % [Sensorcaine-MPF 0.25% 10 ML] 10 ml .ROUTE .STK-MED ONE Lidocaine HCl 2 % MPF [Xylocaine 2 % MPF] 5 ml .ROUTE .STK-MED ONE dexAMETHasone sod phosphate [Decadron] 4 mg .ROUTE .STK-MED ONE I personally reviewed relevant radiographs. Medial compartment narrowing and OA bilaterally Assessment & Plan Assessment & Plan (1) Bilateral primary osteoarthritis of knee: Code(s): M17.0 - Bilateral primary osteoarthritis of knee Plan: This is a 47 year old woman with severe bilateral knee OA, R>L. She complains of pain with daily activity, struggles to remain active due to her pain and is limited in her ADLs. I discussed her diagnosis and treatment options. She is not a surgical candidate, and reports a difficult history of prior surgeries so she is hesitant so speak with Bariatrics at this time. I recommend she work on weight management, dietary modifications, and exercise as tolerated. Her BMI should be <40.0 in order to proceed with surgery. I injected her right knee today, which she tolerated well. She will follow up in 3 months. (2) Obesity, morbid, BMI 50 or higher: Code(s): E66.01 - Morbid (severe) obesity due to excess calories Plan: Current BMI 55.0, weight 309lbs. Failed lap-band surgery. Continue weight management, dietary modifications, and exercise as tolerated. (3) HIV (human immunodeficiency virus infection): Code(s): B20 - Human immunodeficiency virus [HIV] disease (4) Asthenia: Code(s): R53.1 - Weakness Plan Scribed for Eugene Nichole MD by Luis A Snowden, medical charge entry specialist, on 12/15/22 at 12:00 PM, EST. Coding Level of Care Code Est Pt Level 4 (34491) Diagnoses Bilateral primary osteoarthritis of knee M17.0 Obesity, morbid, BMI 50 or higher E66.01 HIV (human immunodeficiency virus infection) B20 Asthenia R53.1 CPT Codes Coding - 23718 Large joint: 42257 - Large joint ([id number])
[2022-12-15 11:39] VITALS: BMI 56.0
== END 2022-12-15 12:22 | disposition home or self-care (01) ==
PROVIDERS: PCP Internal Medicine; Visit Provider Orthopaedic Surgery
DX: M17.0 Bilateral primary osteoarthritis of knee (principal); B20 Human immunodeficiency virus [HIV] disease; R53.1 Weakness
CPT/HCPCS: 20610; 99214

== ENCOUNTER → 2022-12-15 11:10 | Outpatient (BNVA) | payer MEDICAID, SELFPAY | PROVIDERS: PCP Internal Medicine; Visit Provider Orthopaedic Surgery | DX: M17.0 Bilateral primary osteoarthritis of knee (principal); E66.01 Morbid (severe) obesity due to excess calories; Z68.43 Body mass index [BMI] 50.0-59.9, adult; R53.1 Weakness; B20 Human immunodeficiency virus [HIV] disease | CPT/HCPCS: 20610; 99212; J1100 ==

== ENCOUNTER 2023-08-29 17:32 | Outpatient (REF) | payer MEDICAID, SELFPAY ==
[2023-08-29 20:54] LABS: CT PCR NOT DETECTED (Not Detect.); NG PCR NOT DETECTED (Not Detect.)
[2023-08-30 10:54] LABS: Bacterial Vaginosis PCR NEGATIVE (Negative); Candida Group PCR DETECTED (Not Detect); Candida glab krusei PCR NOT DETECTED (Not Detect); Trichomonas vaginalis PCR NOT DETECTED (Not Detect)
== END 2023-08-29 17:33 | disposition home or self-care (01) ==
LOC: HO.HHCLNP 17:32
PROVIDERS: Visit Provider Nurse Practitioner Family
DX: N89.8 Other specified noninflammatory disorders of vagina (principal)
CPT/HCPCS: 0352U; 0353U

== ENCOUNTER 2023-09-04 09:18 | Outpatient (AMB) | payer MEDICAID, SELFPAY ==
--- NOTE | 2023-09-04 09:20 | MHC.OFFVIS ---
Vital Signs 09/04/23 09:23 Height 5 ft 3 in Weight 316 lb BMI 56.0 Intake Visit Reasons: OV-Right knee pain-pain going down the leg Intake Note: Monica is a 48 year old female who presents today for a follow up of right knee OA. Right knee injection done on 12/15/22. Patient reports that the injection was only mildly helpful. She explains that she is having pain with ambulation, has a limp and her pain is affecting her AODL. She would like xrays to be taken. Allergies IV contrast Allergy (Unknown, Uncoded 09/04/23 09:20) Anaphylaxis pollen Allergy (Unknown, Uncoded 09/04/23 09:20) unknown HPI HPI OV-Right knee pain-pain going down the leg: Details: This is a 48 yo F with severe right knee pain, OA with a BMI of 56. Steroid injections have not been helpful. [facility] Medical History Asthenia HIV (human immunodeficiency virus infection) Bilateral primary osteoarthritis of knee Social History Alcohol intake: never Current occupational status: disabled Current occupation: Right Handed Physical Exam Vital Signs: BMI result Body Mass Index 56.0 Const General: alert and awake Nutritional Appearance: obese Orientation/consciousness: patient oriented x3 HEENT Head: Yes normocephalic and Yes atraumatic Eyes EOM: EOMs intact bilaterally Resp Effort & Inspection: normal respiratory effort and able to speak in complete sentences Cardio Jugular venous distension: no JVD Skin General skin exam: turgor normal Rashes: no rashes Neuro General: patient oriented x3 Extrem Other: Bilateral Knees: gait antalgia medial compartement ttp Psych Appearance: grossly normal Affect: normal affect Attitude: cooperative Results Reviewed Results Reviewed: I personally reviewed relevant radiographs. Severe right knee OA Assessment & Plan Assessment & Plan (1) Obesity, morbid, BMI 50 or higher: Code(s): E66.01 - Morbid (severe) obesity due to excess calories Category: Medical Plan: Refer to Bariatrics (2) Bilateral primary osteoarthritis of knee: Code(s): M17.0 - Bilateral primary osteoarthritis of knee Category: Medical Plan: Severe knee OA. I recommend gel for right knee and discussed options. Weight loss for BMI < 40 imperative. Orders: Referrals Medical Weight Management Referral E66.01 - Morbid (severe) obesity due to excess calories Coding Level of Care Code Est Pt Level 4 (14245) Diagnoses Obesity, morbid, BMI 50 or higher E66.01 Bilateral primary osteoarthritis of knee M17.0
[2023-09-04 09:23] VITALS: BMI 56.0
== END 2023-09-04 09:39 | disposition home or self-care (01) ==
PROVIDERS: PCP Internal Medicine; Visit Provider Orthopaedic Surgery
DX: M17.0 Bilateral primary osteoarthritis of knee (principal); E66.01 Morbid (severe) obesity due to excess calories
CPT/HCPCS: 99213

== ENCOUNTER → 2023-09-04 09:18 | Outpatient (BNVA) | payer MEDICAID, SELFPAY | PROVIDERS: PCP Internal Medicine; Visit Provider Orthopaedic Surgery | DX: M17.0 Bilateral primary osteoarthritis of knee (principal); E66.01 Morbid (severe) obesity due to excess calories | CPT/HCPCS: 99212 ==

== ENCOUNTER 2023-09-25 09:33 | Outpatient (AMB) | payer MEDICAID, SELFPAY ==
--- NOTE | 2023-09-25 09:47 | MHC.OFFVIS ---
Intake Visit Reasons: Right Knee Euflexxa #1 Intake Note: Monica is a 48 year old female who presents today for her right knee Euflexxa injection #1. Allergies IV contrast Allergy (Unknown, Uncoded 09/25/23 09:48) Anaphylaxis pollen Allergy (Unknown, Uncoded 09/25/23 09:48) unknown HPI HPI Right Knee Euflexxa #1: Details: Monica is a 48 year old female who presents today for her right knee Euflexxa injection #1. [facility] Medical History Asthenia HIV (human immunodeficiency virus infection) Bilateral primary osteoarthritis of knee Social History Alcohol intake: never Current occupational status: disabled Current occupation: Right Handed Physical Exam Extrem Other: skin c/d/i Office Procedures Joint Injection/Drain Joint Injection/Drain Details: Euflexxa injected. Site was prepped using aseptic technique. Patient tolerated the procedure well. Primary Site: right knee Approach Used: anterolateral Coding - Large joint Procedure code (CPT) selection complete Assessment & Plan Assessment & Plan (1) Bilateral primary osteoarthritis of knee: Code(s): M17.0 - Bilateral primary osteoarthritis of knee Category: Medical Plan: #1/3 Euflexxa injected without complications. Coding Level of Care Code Est Pt Level 2 (44668) Diagnoses Bilateral primary osteoarthritis of knee M17.0 CPT Codes Coding - Large joint: 76469 - Large joint ([id number])
== END 2023-09-25 10:01 | disposition home or self-care (01) ==
PROVIDERS: PCP Internal Medicine; Referring Provider Internal Medicine; Visit Provider Orthopaedic Surgery
DX: M17.0 Bilateral primary osteoarthritis of knee (principal)
CPT/HCPCS: 20610

== ENCOUNTER → 2023-09-25 09:33 | Outpatient (BNVA) | payer MEDICAID, SELFPAY | PROVIDERS: PCP Internal Medicine; Visit Provider Orthopaedic Surgery | DX: M17.0 Bilateral primary osteoarthritis of knee (principal) | CPT/HCPCS: 20610; J7323 ==

== ENCOUNTER 2023-11-23 11:06 | Outpatient (REF) | payer MEDICAID, SELFPAY ==
[2023-11-23 13:34] LABS: MANUAL DIFF FLAG NO
[2023-11-23 13:44] LABS: Basophils Percent Auto 1.1 % (0-2); Eosinophils Absolute Auto 0.1 X10*3/uL (0.0-0.4); Eosinophils Percent Auto 2.2 % (0-4); Hematocrit 41.2 % (37.0-47.0); Hemoglobin 13.3 g/dl (12.0-16.0); Imm Gran Abs Auto 0.01 X10*3/uL (0.00-0.03); Imm Gran Pct Auto 0.4 % (0.0-0.4); Lymphocytes Absolute Auto 1.2 X10*3/uL (1.2-4.9); Lymphocytes Percent Auto 42.8 % (20-40); Mean Corpuscular HGB Conc 32.3 g/dl (31.0-35.0); Mean Corpuscular Hemoglobin 27.5 pg (27.0-33.0); Mean Corpuscular Volume 85.1 fL (80.0-98.0); Monocytes Absolute Auto 0.3 X10*3/uL (0.1-1.2); Monocytes Percent Auto 10.3 % (2-11); Neutrophils Absolute Auto 1.2 x10*3/uL (2.0-8.3); Neutrophils Percent Auto 43.2 % (45-73); Red Blood Count 4.84 X10*6/uL (4.20-5.50); Red Cell Distribution Width 13.6 % (11.0-16.0); White Blood Count 2.7 X10*3/uL (4.8-10.8)
[2023-11-23 13:49] LABS: Estimated Average Glucose 103 mg/dL; Hemoglobin A1C 111.7619 umol/L; Hemoglobin A1c % 5.2 % (<6.0); Total Hemoglobin (HGBA1C) 3341.9105 umol/L
[2023-11-23 14:03] LABS: Mean Platelet Volume 13.8 fL (9.4-12.3); Platelet Count 68 X10*3/uL (160-400)
[2023-11-23 14:04] LABS: Alanine Aminotransferase 12 U/L (0-31); Albumin Level 3.5 g/dL (3.5-5.0); Alkaline Phosphatase 53 U/L (39-117); Anion Gap 10 (12-20); Aspartate Amino Transferase 19 U/L (5-31); Bilirubin Total 0.5 mg/dL (0.0-1.0); Blood Urea Nitrogen 13 mg/dL (9-16); Calcium 9.2 mg/dL (8.4-10.2); Carbon Dioxide 26 mmol/L (22-29); Chloride 105 mmol/L (96-108); Cholesterol 167 mg/dL (<200); Estimated Glomerular Filt Rate > 60; Glucose Random 83 mg/dL (60-115); HDL Cholesterol 38 mg/dL (>40); LDL Cholesterol Calculated 109 mg/dL (<100); Potassium 4.3 mmol/L (3.3-5.1); Sodium 137 mmol/L (135-145); Total Protein 8.3 g/dL (6.5-8.0); Triglycerides 100 mg/dL (<150)
[2023-11-23 14:10] LABS: TSH reflex Free T4 2.83 uIU/mL (0.32-4.0); Vitamin D 25-OH Total 10.1 ng/mL (>30)
[2023-11-23 14:31] LABS: Reflex LDLD? No
== END 2023-11-23 11:07 | disposition home or self-care (01) ==
LOC: HO.HHCL 11:06
PROVIDERS: Visit Provider Internal Medicine
DX: E66.01 Morbid (severe) obesity due to excess calories (principal); Z68.42 Body mass index [BMI] 45.0-49.9, adult
CPT/HCPCS: 36415; 80053; 80061; 82306; 83036; 84443; 85025

== ENCOUNTER 2024-01-06 18:26 | Emergency (ER) | payer MEDICAID, SELFPAY ==
--- NOTE | ~2024-01-06 | XR_ITS ---
EXAMINATION: XR CHEST CLINICAL INFORMATION: Chest pain. COMPARISON: None currently available. TECHNIQUE: 2 views of the chest were obtained. FINDINGS: Mildly enlarged cardiac silhouette, raising suspicion for cardiomegaly; pericardial effusion cannot be confirmed or excluded. No significant abnormality is noted involving the lungs, mediastinum, or soft tissues. Mild degenerative changes of the spine. XR/XR chest 2V IMPRESSION: Findings as above. Electronically signed by: Jose Proctor MD 01/06/2024 07:34 PM EDT
--- NOTE | 2024-01-06 18:30 | ECG_ITS ---
Test Reason : CP Blood Pressure : / mmHG Vent. Rate : 074 BPM Atrial Rate : 074 BPM P-R Int : 140 ms QRS Dur : 082 ms QT Int : 388 ms P-R-T Axes : 020 000 022 degrees QTc Int : 430 ms Normal sinus rhythm Moderate voltage criteria for LVH, may be normal variant ( R in aVL , Transfer product ) Borderline ECG When compared with ECG of 26-DEC-2005 07:17, No significant change was found Referred By: Generic ED Physician Electronically Signed By:RADHA RODRÍGUEZ
[2024-01-06 18:55] VITALS: BP 104/61; PULSE 78; RESP 18; TEMP 36.9; O2SAT 98; BMI 44.5
--- NOTE | 2024-01-06 18:56 | ED_ITS ---
HPI - General Adult General Chief complaint: Chest Pain Stated complaint: chest pain Time Seen by Provider: 01/06/24 23:09 Source: patient Mode of arrival: ambulatory Limitations: no limitations History of Present Illness ED Provider: wilder ALVARADO narrative: Patient with No known cardiac history does have history of HIV noncompliant to her medications comes here for chest pain which happened 2 days ago went to [facility] was not seen by the provider and left no chest pain since then 2 days ago patient had at rest mid chest pressure-like lasted 2 minutes no chest pain since the no shortness a breath no radiation of pain no palpitation no prior history of cardiac arrest Related Data Previous Rx's ?Medication ?Instructions ?Recorded metronidazole 500 mg tablet 500 mg PO BID #14 tabs 11/04/20 (Flagyl) ibuprofen 600 mg tablet 600 mg PO TID PRN pain #20 tabs 08/11/21 celecoxib 100 mg capsule 200 mg (2 x 100 mg) PO BID 30 days 07/21/22 #120 caps acetaminophen 325 mg tablet 650 mg (2 x 325 mg) PO QID PRN 12/07/22 (Tylenol) pain #30 tabs ibuprofen 800 mg tablet 800 mg PO Q8H PRN pain #30 tabs 12/07/22 bictegravir 50 mg-emtricitabine 1 tab PO DAILY #90 tabs 01/06/24 200 mg-tenofovir alafenam 25 mg tablet (Biktarvy) Allergies Allergy/AdvReac Type Severity Reaction Status Date / Time IV contrast Allergy Unknown Anaphylaxis Uncoded 01/06/24 18:56 pollen Allergy Unknown unknown Uncoded 01/06/24 18:56 Review of Systems 2 Review of Systems: Yes all other systems are reviewed and are negative [facility] Past Medical History Medical History Asthenia HIV (human immunodeficiency virus infection) Bilateral primary osteoarthritis of knee Social History Social History Alcohol intake: never Advance Directives: No Advance Directives Information Provided: No Do you have a plan to hurt others: No Plan Current occupational status: disabled Current occupation: Right Handed Physical Exam ED Vital Signs: Vital Signs - 24 hr 01/06/24 18:55 01/06/24 23:15 Temperature 98.5 F 98.3 F Pulse Rate 78 67 Respiratory Rate 18 16 Blood Pressure 104/61 141/62 H Pulse Oximetry 98 97 Oxygen Delivery Method Room Air Room Air BMI result Body Mass Index 44.5 Appearance: Alert. Oriented X3. No acute distress. Eyes: PERRLA, No Nystagmus ENT: Pharynx normal. Oral Mucosa moist Neck: Normal inspection. Neck supple. CVS: Normal heart rate and rhythm. Pulses normal. Respiratory: No respiratory distress. Equal air entry bilateral, no wheezing/rales/rhonchi Abdomen: Soft and nontender. Bowel sounds are present, no mass palpable, no CVA tenderness Skin: Skin warm and dry. Normal skin color. Normal skin turgor. Extremities: No lower extremity edema. No calf tenderness Neuro: Oriented X 3. No motor deficit. No sensory deficit.No cerebellar signs , cranial nerves II-XII intact Course Course Course Narrative: This is an RME: Additional HPI, ROS, PE not included below will be deferred to primary provider. RME assessment and note performed by: Kendal Brooks PA-C This is a [id number]-female, with a hx of HIV, who presents to the ER with a complaint of chest pain. She went to [facility] this AM but left without being seen. Patient reports that she does not have any chest pain however still wants to ensure that her ?heart is still okay?. Plan: Chest x-ray, EKG, labs, further ER evaluation needed Medical Decision Making Medical Decision Making [facility] Narrative: Patient has atypical chest pain cardiac enzymes negative EKG without any significant changes heart score of 0 will discharge patient home advised to follow up with PCP Differential Diagnosis Differential Diagnoses: The differential diagnosis associated with the presentation includes Lab Data [facility] Lab Attestation statement: I reviewed the patient's lab results. 01/06/24 19:09 01/06/24 19:09 Labs: Lab Results 01/06/24 Range/Units 19:09 WBC 4.6 L (4.8-10.8) X10*3/uL RBC 4.92 (4.20-5.50) X10*6/uL Hgb 13.7 (12.0-16.0) g/dl Hct 41.2 (37.0-47.0) % MCV 83.7 (80.0-98.0) fL MCH 27.8 (27.0-33.0) pg MCHC 33.3 (31.0-35.0) g/dl RDW 13.8 (11.0-16.0) % Plt Count 108 L D (160-400) X10*3/uL MPV 11.9 (9.4-12.3) fL Immature Gran % (Auto) 0.2 (0.0-0.4) % Neut % (Auto) 58.1 (45-73) % Lymph % (Auto) 28.2 (20-40) % [place] % (Auto) 11.7 H (2-11) % Eos % (Auto) 1.1 (0-4) % Baso % (Auto) 0.7 (0-2) % Lymph # (Auto) 1.3 (1.2-4.9) X10*3/uL [place] # (Auto) 0.5 (0.1-1.2) X10*3/uL Eos # (Auto) 0.1 (0.0-0.4) X10*3/uL Baso # (Auto) 0.0 (0.0-0.2) X10*3/uL Abs Immat Gran (auto) 0.01 (0.00-0.03) X10*3/uL Absolute Neuts (auto) 2.7 (2.0-8.3) x10*3/uL Absolute Nucleated RBC 0.000 (0.0-0.012) X10*3/uL Nucleated RBC % (auto) 0.0 (0.0-0.2) /100WBC PT 13.9 H (10.9-12.4) SEC INR 1.2 H (0.9-1.1) Sodium 140 (135-145) mmol/L Potassium 4.2 (3.3-5.1) mmol/L Chloride 106 (96-108) mmol/L Carbon Dioxide 26 (22-29) mmol/L Anion Gap 12 (12-20) BUN 23 H (9-16) mg/dL Creatinine 1.14 (0.5-1.4) mg/dL Estim Creat Clear Calc 75.2 Estimated GFR 51 Random Glucose 82 (60-115) mg/dL Calcium 10.1 D (8.4-10.2) mg/dL Magnesium 2.2 (1.6-2.6) mg/dL Total Bilirubin 0.5 (0.0-1.0) mg/dL Direct Bilirubin 0.2 (0.0-0.5) mg/dL AST 24 (5-31) U/L ALT 13 (0-31) U/L Alkaline Phosphatase 62 (39-117) U/L Troponin I High Sens 9.2 (<3.5-17.0) ng/L Total Protein 9.2 H (6.5-8.0) g/dL Albumin 3.9 (3.5-5.0) g/dL Lipase 22 (8-78) U/L Beta HCG, Quant < 2 mIU/mL Influenza Type A (PCR) NEGATIVE (Negative) Influenza Type B (PCR) NEGATIVE (Negative) RSV RNA Qual (PCR) NEGATIVE (Negative) SARS-CoV-2 RNA (RT-PCR) NEGATIVE (Negative) Independent Interpretation I performed an independent interpretation of an: EKG Interpretation: Normal sinus rhythm heart rate 74 beats per minute normal interval axis no acute STT wave changes no acute ischemia Discharge Plan Discharge Clinical Impression: Atypical chest pain, HIV (human immunodeficiency virus infection) Patient Disposition: Home, Self-Care Instructions: Chest Pain (ED), HIV Infection (ED) Additional Instructions: Take medication daily Follow with your PCP for further management At this time there is no signs of significant cardiac injury Prescriptions: New Biktarvy 50-200-25 mg tablet 1 tab PO DAILY Qty: 90 3RF No Action celecoxib 100 mg capsule 200 mg PO BID 30 Days Qty: 120 4RF metronidazole [Flagyl] 500 mg tablet 500 mg PO BID Qty: 14 0RF ibuprofen 600 mg tablet 600 mg PO TID PRN (Reason: pain) Qty: 20 0RF ibuprofen 800 mg tablet 800 mg PO Q8H PRN (Reason: pain) Qty: 30 0RF acetaminophen [Tylenol] 325 mg tablet 650 mg PO QID PRN (Reason: pain) Qty: 30 0RF Print Language: Swiss
[2024-01-06 19:14] LABS: MANUAL DIFF FLAG NO
[2024-01-06 19:20] LABS: Basophils Percent Auto 0.7 % (0-2); Eosinophils Absolute Auto 0.1 X10*3/uL (0.0-0.4); Eosinophils Percent Auto 1.1 % (0-4); Hematocrit 41.2 % (37.0-47.0); Hemoglobin 13.7 g/dl (12.0-16.0); Imm Gran Abs Auto 0.01 X10*3/uL (0.00-0.03); Imm Gran Pct Auto 0.2 % (0.0-0.4); Lymphocytes Absolute Auto 1.3 X10*3/uL (1.2-4.9); Lymphocytes Percent Auto 28.2 % (20-40); Mean Corpuscular HGB Conc 33.3 g/dl (31.0-35.0); Mean Corpuscular Hemoglobin 27.8 pg (27.0-33.0); Mean Corpuscular Volume 83.7 fL (80.0-98.0); Mean Platelet Volume 11.9 fL (9.4-12.3); Monocytes Absolute Auto 0.5 X10*3/uL (0.1-1.2); Monocytes Percent Auto 11.7 % (2-11); Neutrophils Absolute Auto 2.7 x10*3/uL (2.0-8.3); Neutrophils Percent Auto 58.1 % (45-73); Platelet Count 108 X10*3/uL (160-400); Red Blood Count 4.92 X10*6/uL (4.20-5.50); Red Cell Distribution Width 13.8 % (11.0-16.0); White Blood Count 4.6 X10*3/uL (4.8-10.8)
[2024-01-06 19:22] LABS: INTERNATIONAL NORM RATIO 1.2 (0.9-1.1); Prothrombin Time 13.9 SEC (10.9-12.4)
[2024-01-06 19:39] LABS: Alanine Aminotransferase 13 U/L (0-31); Albumin Level 3.9 g/dL (3.5-5.0); Alkaline Phosphatase 62 U/L (39-117); Anion Gap 12 (12-20); Aspartate Amino Transferase 24 U/L (5-31); Bilirubin Direct 0.2 mg/dL (0.0-0.5); Bilirubin Total 0.5 mg/dL (0.0-1.0); Blood Urea Nitrogen 23 mg/dL (9-16); Calcium 10.1 mg/dL (8.4-10.2); Carbon Dioxide 26 mmol/L (22-29); Chloride 106 mmol/L (96-108); Creatinine Clr Calc Pharmacy 75.2; Estimated Glomerular Filt Rate 51; Glucose Random 82 mg/dL (60-115); HCG Quantitative < 2 mIU/mL; Lipase 22 U/L (8-78); Magnesium 2.2 mg/dL (1.6-2.6); Potassium 4.2 mmol/L (3.3-5.1); Sodium 140 mmol/L (135-145); Total Protein 9.2 g/dL (6.5-8.0); Troponin-I High Sensitivity 9.2 ng/L (<3.5-17.0)
[2024-01-06 20:01] LABS: Influenza A PCR NEGATIVE (Negative); Influenza B PCR NEGATIVE (Negative); Resp Syncy Virus RNA Qual PCR NEGATIVE (Negative); SARS COV2 PCR INHOUSE NEGATIVE (Negative)
[2024-01-06 23:15] VITALS: BP 141/62; PULSE 67; RESP 16; TEMP 36.8; O2SAT 97
[2024-01-06 23:44] VITALS: BP 141/62; PULSE 67; RESP 16; TEMP 36.8; O2SAT 97
== END 2024-01-07 00:01 | disposition home or self-care (01) ==
PROVIDERS: Physician Assistant Medical; Emergency Provider Internal Medicine
DX: R07.89 Other chest pain (principal); B20 Human immunodeficiency virus [HIV] disease; Z91.148 Patient's other noncompliance with medication regimen for other reason; Z03.818 Encounter for observation for suspected exposure to other biological agents ruled out
CPT/HCPCS: 0241U; 36415; 71046; 80048; 80076; 83690; 83735; 84484; 84702; 85025; 85610; 93005; 99283; 99284

== ENCOUNTER → 2024-01-06 18:30 | Outpatient (BNV) | payer MEDICAID, SELFPAY | PROVIDERS: Emergency Provider Internal Medicine; Visit Provider Internal Medicine | DX: R07.9 Chest pain, unspecified (principal); R94.31 Abnormal electrocardiogram [ECG] [EKG] | CPT/HCPCS: 93010 ==

== ENCOUNTER 2024-01-07 18:28 | Emergency (ER) | payer MEDICAID, SELFPAY ==
[2024-01-07 18:36] VITALS: BP 165/79; PULSE 63; PULSE 87; RESP 16; TEMP 36.5; O2SAT 99; BMI 62.7
[2024-01-07 18:55] VITALS: RESP 16
--- NOTE | 2024-01-07 18:59 | PC.NURSE ---
Monica is coming from home today after having a conversation with her parents that resulted in her mom calling 911. Patient reports that yesterday she received news that she was HIV positive, and has been frustrated and distressed regarding the new since. She has been reading the bible more frequently to cope and per EMS, the mother believes that her reading the bible more frequently is a sign of a schizophrenia break . Patient reports no history of mental health, takes no psychiatric medications. Patient denies suicidal and homicidal ideation, denies auditory and visual hallucinations. Endorses using jew as a coping mechanism. She reports that she just came to the emergency department to show her mother that she is not crazy. Patient is calm and cooperative, alert and oriented x4, no apparent distress is noted. patient is currently reading her bible on the couch in BH 7. Pending PA evaluation at this time
--- NOTE | 2024-01-07 20:13 | PC.NURSE ---
pt from the POD, assume care of pt at this time, awaiting dispo
[2024-01-07 22:28] LABS: MANUAL DIFF FLAG NO
[2024-01-07 22:31] LABS: Basophils Percent Auto 0.7 % (0-2); Eosinophils Absolute Auto 0.1 X10*3/uL (0.0-0.4); Eosinophils Percent Auto 2.6 % (0-4); Hematocrit 41.4 % (37.0-47.0); Hemoglobin 13.5 g/dl (12.0-16.0); Imm Gran Abs Auto 0.02 X10*3/uL (0.00-0.03); Imm Gran Pct Auto 0.7 % (0.0-0.4); Lymphocytes Absolute Auto 1.1 X10*3/uL (1.2-4.9); Lymphocytes Percent Auto 37.1 % (20-40); Mean Corpuscular HGB Conc 32.6 g/dl (31.0-35.0); Mean Corpuscular Hemoglobin 27.7 pg (27.0-33.0); Monocytes Absolute Auto 0.3 X10*3/uL (0.1-1.2); Monocytes Percent Auto 10.3 % (2-11); Neutrophils Absolute Auto 1.5 x10*3/uL (2.0-8.3); Neutrophils Percent Auto 48.6 % (45-73); Red Blood Count 4.87 X10*6/uL (4.20-5.50); Red Cell Distribution Width 13.7 % (11.0-16.0)
--- NOTE | 2024-01-07 22:42 | PC.NURSE ---
pt sitting in chair, reading the bible, pt is a 1:1, no acute distress, will cont plan of care
[2024-01-07 22:51] LABS: Alanine Aminotransferase 13 U/L (0-31); Albumin Level 3.8 g/dL (3.5-5.0); Alkaline Phosphatase 54 U/L (39-117); Anion Gap 13 (12-20); Aspartate Amino Transferase 29 U/L (5-31); Bilirubin Total 0.4 mg/dL (0.0-1.0); Blood Urea Nitrogen 22 mg/dL (9-16); Calcium 10.1 mg/dL (8.4-10.2); Carbon Dioxide 27 mmol/L (22-29); Chloride 103 mmol/L (96-108); Creatinine Clr Calc Pharmacy 90.2; Estimated Glomerular Filt Rate > 60; Ethanol < 10 mg/dL; Glucose Random 98 mg/dL (60-115); HCG Quantitative < 2 mIU/mL; Magnesium 2.2 mg/dL (1.6-2.6); Potassium 4.1 mmol/L (3.3-5.1); Sodium 139 mmol/L (135-145); Total Protein 9.1 g/dL (6.5-8.0)
[2024-01-07 22:58] VITALS: BP 141/81; PULSE 69; RESP 20; TEMP 36.8; O2SAT 100
[2024-01-07 23:03] LABS: Mean Platelet Volume 11.2 fL (9.4-12.3); Platelet Count 93 X10*3/uL (160-400)
--- NOTE | 2024-01-07 23:20 | PC.NURSE ---
report given to Dianna BURROWS
--- NOTE | 2024-01-07 23:30 | PC.NURSE ---
This technical report writer assumed care of this Pt at 2300. Pt A&Ox3, denies any pain. Pt sitting on chair, reading the bible in Azeri out loud. Pt denies SI/HI/AH/VH. Pt aware of uncollected urine sample.
--- NOTE | 2024-01-08 01:58 | ED.PSYCH ---
HPI - Psych General Chief Complaint: Psychiatric Symptoms Stated Complaint: WANTS MENTAL HEALTH EVAL PER EMS NO SI/HI Time Seen by Provider: 01/07/24 18:38 Source: patient Limitations: no limitations History of Present Illness ED Provider: Rylee Ambrosio PA-C HPI Narrative: 48-year-old female with a history of HIV, presents given need for crisis consult. Per the patient, her mother told her that she was concerned about her because she was ?talking to herself?. The patient denies this. Her brother, who is here at bedside, states that he has been privy to these episodes. The patient denies SI or HI. She denies use of alcohol or illicit substances. The patient admits that she has been reading the Bible more frequently due to the news that she has been recently diagnosed with HIV. In addition, both the brother and the patient indicate that the patient was seen at [facility] for a toxic ingestion just days ago. Related Data Previous Rx's ?Medication ?Instructions ?Recorded metronidazole 500 mg tablet 500 mg PO BID #14 tabs 11/04/20 (Flagyl) ibuprofen 600 mg tablet 600 mg PO TID PRN pain #20 tabs 08/11/21 celecoxib 100 mg capsule 200 mg (2 x 100 mg) PO BID 30 days 07/21/22 #120 caps acetaminophen 325 mg tablet 650 mg (2 x 325 mg) PO QID PRN 12/07/22 (Tylenol) pain #30 tabs ibuprofen 800 mg tablet 800 mg PO Q8H PRN pain #30 tabs 12/07/22 bictegravir 50 mg-emtricitabine 1 tab PO DAILY #90 tabs 01/06/24 200 mg-tenofovir alafenam 25 mg tablet (Biktarvy) Allergies Allergy/AdvReac Type Severity Reaction Status Date / Time IV contrast Allergy Unknown Anaphylaxis Uncoded 01/07/24 18:36 pollen Allergy Unknown unknown Uncoded 01/07/24 18:36 Review of Systems Review of Systems: Yes all other systems are reviewed and are negative Constitutional: Constitutional: Denies fatigue and Denies fever(s) Cardiovascular: Cardiovascular: Denies chest pain and Denies dyspnea Respiratory: Respiratory: Denies cough and Denies dyspnea Gastrointestinal: Gastrointestinal: Denies diarrhea, Denies nausea and Denies vomiting Endocrine: Endocrine: Denies fatigue PMF Past Medical History Attestation statement: The following information was validated with the patient. Medical History Asthenia HIV (human immunodeficiency virus infection) Bilateral primary osteoarthritis of knee Social History Social History Alcohol intake: never Smoked in Last 30 Days: No Use of substances other than those prescribed or required for medical reasons: No Advance Directives: No Advance Directives Information Provided: No Patient : No Current occupational status: disabled Current occupation: Right Handed Physical Exam Vital Signs: Vital Signs: Last Vital Signs Temp 98.0 F 01/08/24 11:29 Pulse 90 01/08/24 11:29 Resp 16 01/08/24 11:29 BP 142/77 H 01/08/24 11:29 Pulse Ox 98 01/08/24 11:29 O2 Del Method Room Air 01/08/24 11:29 BMI result Body Mass Index 62.7 Const: Other: Alert, overall well-appearing, but does appear older than stated age Orientation/consciousness: patient oriented x3 Resp: Other: Nonlabored respirations Cardio: Other: Normal peripheral perfusion Skin: Other: Warm dry no rash Neuro: General: patient oriented x3, no focal motor deficits and CN's II-XI intact bilaterally Psych: Other: Calm cooperative, witnessed to be reading the Bible out loud in the hallway to herself, she will get up to wash her hands while still reading the Bible, she is carrying it with her everywhere Medical Decision Making Medical Decision Making MDM Narrative: 48-year-old female with a history of HIV, presents given need for crisis consult. Per the patient, her mother told her that she was concerned about her because she was ?talking to herself?. The patient denies this. Her brother, who is here at bedside, states that he has been privy to these episodes. The patient denies SI or HI. She denies use of alcohol or illicit substances. The patient admits that she has been reading the Bible more frequently due to the news that she has been recently diagnosed with HIV. In addition, both the brother and the patient indicate that the patient was seen at [facility] for a toxic ingestion just days ago. No underlying chronic issues, recent diagnosis of HIV History: Per patient and the brother I have considered the following differential diagnoses: Decompensated psychiatric illness, drug/alcohol intoxication, SI, HI Plan: The patient is currently exhibiting hyper methodist behavior, this could be her baseline, it is unclear. She has no known psychiatric illnesses, per our record. It is concerning that she just had toxic ingestion. I feel she needs to stay for further assessment by the care team. We need collateral information. She is willing to stay, the brother was pleased she is staying. We will screen basic labs, serum ethanol and drug screen I have independently reviewed the following tests: Labs: No leukocytosis, not anemic, no electrolyte abnormality, ethanol negative, drug screen pending Lab Data 01/07/24 22:24 01/07/24 22:24 Labs: Lab Results 01/07/24 01/08/24 Range/Units 22:24 04:37 WBC 3.0 L (4.8-10.8) X10*3/uL RBC 4.87 (4.20-5.50) X10*6/uL Hgb 13.5 (12.0-16.0) g/dl Hct 41.4 (37.0-47.0) % MCV 85.0 (80.0-98.0) fL MCH 27.7 (27.0-33.0) pg MCHC 32.6 (31.0-35.0) g/dl RDW 13.7 (11.0-16.0) % Plt Count 93 L (160-400) X10*3/uL MPV 11.2 (9.4-12.3) fL Immature Gran % (Auto) 0.7 H (0.0-0.4) % Neut % (Auto) 48.6 (45-73) % Lymph % (Auto) 37.1 (20-40) % [place] % (Auto) 10.3 (2-11) % Eos % (Auto) 2.6 (0-4) % Baso % (Auto) 0.7 (0-2) % Lymph # (Auto) 1.1 L (1.2-4.9) X10*3/uL [place] # (Auto) 0.3 (0.1-1.2) X10*3/uL Eos # (Auto) 0.1 (0.0-0.4) X10*3/uL Baso # (Auto) 0.0 (0.0-0.2) X10*3/uL Abs Immat Gran (auto) 0.02 (0.00-0.03) X10*3/uL Absolute Neuts (auto) 1.5 L (2.0-8.3) x10*3/uL Absolute Nucleated RBC 0.000 (0.0-0.012) X10*3/uL Nucleated RBC % (auto) 0.0 (0.0-0.2) /100WBC Sodium 139 (135-145) mmol/L Potassium 4.1 (3.3-5.1) mmol/L Chloride 103 (96-108) mmol/L Carbon Dioxide 27 (22-29) mmol/L Anion Gap 13 (12-20) BUN 22 H (9-16) mg/dL Creatinine 0.94 (0.5-1.4) mg/dL Estim Creat Clear Calc 90.2 Estimated GFR > 60 Random Glucose 98 (60-115) mg/dL Calcium 10.1 (8.4-10.2) mg/dL Magnesium 2.2 (1.6-2.6) mg/dL Total Bilirubin 0.4 (0.0-1.0) mg/dL AST 29 (5-31) U/L ALT 13 (0-31) U/L Alkaline Phosphatase 54 (39-117) U/L Total Protein 9.1 H (6.5-8.0) g/dL Albumin 3.8 (3.5-5.0) g/dL Beta HCG, Quant < 2 mIU/mL Urine Opiates Screen Not Detected (Not Detect) Ur Buprenorphine Scrn Not Detected (Not Detect) ng/mL Ur Oxycodone Screen Not Detected (Not Detect) ng/mL Urine Methadone Screen Not Detected (Not Detect) ng/mL Urine Fentanyl Screen Not Detected (Not Detect) Ur Barbiturates Screen Not Detected (Not Detect) Ur Phencyclidine Scrn Not Detected (Not Detect) Ur Amphetamines Screen Not Detected (Not Detect) U Benzodiazepines Scrn Not Detected (Not Detect) Urine Cocaine Screen Not Detected (Not Detect) U Marijuana (THC) Screen Not Detected (Not Detect) Ethyl Alcohol < 10 mg/dL Discharge Plan Discharge Clinical Impression: Engages in methodist activities Patient Disposition: Home, Self-Care Instructions: Anxiety (ED) Additional Instructions: Please follow up. Prescriptions: No Action celecoxib 100 mg capsule 200 mg PO BID 30 Days Qty: 120 4RF metronidazole [Flagyl] 500 mg tablet 500 mg PO BID Qty: 14 0RF ibuprofen 600 mg tablet 600 mg PO TID PRN (Reason: pain) Qty: 20 0RF ibuprofen 800 mg tablet 800 mg PO Q8H PRN (Reason: pain) Qty: 30 0RF acetaminophen [Tylenol] 325 mg tablet 650 mg PO QID PRN (Reason: pain) Qty: 30 0RF Biktarvy 50-200-25 mg tablet 1 tab PO DAILY Qty: 90 3RF Interventions: [place]-Suicide Risk Severity Scale Last Done: 01/07/24 18:55 ED Discharge Assessment Last Done: 01/08/24 11:29 Discharge Date/Time: 01/08/24 11:30 Print Language: Tunisian ED Observation ED Observation Admit Comment: Seen by no SI or HI we will send home.
[2024-01-08 02:50] VITALS: BP 121/85; PULSE 82; RESP 18; O2SAT 98
--- NOTE | 2024-01-08 03:07 | PC.NURSE ---
Pt laying down in stretcher, warm blanket given per request. Plan of care ongoing.
--- NOTE | 2024-01-08 04:34 | PC.NURSE ---
Pt reports she is unable to provide urine sample, Pt bladder scanned 96 mL. Report given to ED BH POD RN. Pt ambulated independent with steady.
--- NOTE | 2024-01-08 04:48 | PC.NURSE ---
Patient brought over from the ED at this time. Patient calm and cooperative, alert and oriented, placed in bed 7.
[2024-01-08 04:59] LABS: Amphetamine Screen Urine Not Detected (Not Detect); Barbiturates, Urine Not Detected (Not Detect); Benzodiazepines Screen Urine Not Detected (Not Detect); Buprenorphine Scr Not Detected (Not Detect); Cannabinoid Screen Urine Not Detected (Not Detect); Cocaine Screen Urine Not Detected (Not Detect); Fentanyl, urine Not Detected (Not Detect); Methadone Screen, Urine Not Detected (Not Detect); Opiate Screen Urine Not Detected (Not Detect); Oxycodone Screen Urine Not Detected (Not Detect); Phencyclidine Screen Urine Not Detected (Not Detect)
[2024-01-08 06:16] VITALS: BP 142/77; PULSE 90; RESP 16; TEMP 36.7; O2SAT 98
[2024-01-08 11:29] VITALS: BP 142/77; PULSE 90; RESP 16; TEMP 36.7; O2SAT 98
--- NOTE | 2024-01-08 16:20 | MHC.CARE ---
Referral to CC was completed.
== END 2024-01-08 11:30 | disposition home or self-care (01) ==
PROVIDERS: Physician Assistant Medical; Emergency Provider Emergency Medicine; PCP Internal Medicine
DX: F29 Unspecified psychosis not due to a substance or known physiological condition (principal); Z79.899 Other long term (current) drug therapy; Z51.81 Encounter for therapeutic drug level monitoring; Z21 Asymptomatic human immunodeficiency virus [HIV] infection status
CPT/HCPCS: 36415; 80053; 80307; 83735; 84702; 85025; 99285; S9485

== ENCOUNTER 2024-01-09 05:08 | Inpatient (IN) | payer OTHER, SELFPAY ==
--- NOTE | ~2024-01-09 | CT_ITS ---
EXAMINATION: CT HEAD WITHOUT CONTRAST CLINICAL INFORMATION: Encephalopathy. COMPARISON: None available. TECHNIQUE: Contiguous axial imaging was performed from the skull base to vertex without intravenous administration of contrast. This CT examination was performed using dose optimization techniques as appropriate, variously including the following: *Automated exposure control. *Adjustment of mA and/or kV according to patient size (this includes techniques or standardized protocols for targeted exams where dose is matched to indication/reason for exam; i.e. extremities or head). *Use of iterative reconstruction technique. DLP: 782 mGy-cm FINDINGS: There is a region of chronic encephalomalacia involving the periventricular white matter of the anterior left frontal lobe and left caudate head with associated volume loss. No additional loss of mon-white matter differentiation. No evidence of acute intracranial hemorrhage. Additional few nonspecific scattered periventricular and deep white matter regions of hypoattenuation. Ex vacuo dilatation of the frontal horn of the left lateral ventricle. Otherwise, the ventricles are normal in morphology and size. No evidence for obstructive hydrocephalus. No abnormal mass effect or midline shift. No extra-axial fluid collections. No acute soft tissue or osseous abnormalities. Mild mucosal thickening of the paranasal sinuses. Moderate leftward nasal septal deviation. The mastoid air cells and middle ear cavities are clear. CT/CT head/brain wo IV con IMPRESSION: 1. No evidence of acute intracranial hemorrhage or edematous territorial infarction. 2. Region of chronic encephalomalacia involving the periventricular white matter of the anterior left frontal lobe and left caudate head. Electronically signed by: Gume Elkins DO 01/11/2024 05:53 PM EST
--- NOTE | 2024-01-09 05:23 | ED.PSYCH ---
HPI - Psych General Chief Complaint: Psychiatric Symptoms Stated Complaint: SI Time Seen by Provider: 01/09/24 05:20 Source: patient, EMS, full time staff interpreter and police Mode of arrival: EMS Limitations: physical limitation History of Present Illness ED Provider: DR. Pino HPI Narrative: A 48-year-old female brought in by EMS with the police under section 12 for being agitated and aggressive, patient do not feel safe feel she will get hurt by the police. Patient is incoherent, belligerent, and non historian at this point. Related Data Previous Rx's ?Medication ?Instructions ?Recorded metronidazole 500 mg tablet 500 mg PO BID #14 tabs 11/04/20 (Flagyl) ibuprofen 600 mg tablet 600 mg PO TID PRN pain #20 tabs 08/11/21 celecoxib 100 mg capsule 200 mg (2 x 100 mg) PO BID 30 days 07/21/22 #120 caps acetaminophen 325 mg tablet 650 mg (2 x 325 mg) PO QID PRN 12/07/22 (Tylenol) pain #30 tabs ibuprofen 800 mg tablet 800 mg PO Q8H PRN pain #30 tabs 12/07/22 bictegravir 50 mg-emtricitabine 1 tab PO DAILY #90 tabs 01/06/24 200 mg-tenofovir alafenam 25 mg tablet (Biktarvy) Allergies Allergy/AdvReac Type Severity Reaction Status Date / Time IV contrast Allergy Unknown Anaphylaxis Uncoded 01/09/24 05:44 pollen Allergy Unknown unknown Uncoded 01/09/24 05:44 Review of Systems Review of Systems: All other systems are reviewed and are negative Constitutional: Reports as per HPI and Reports no additional constitutional complaints Eyes: Reports as per HPI and Reports no additional eye complaints Reports system reviewed and no additional complaints, except as documented Cardiovascular: Reports as per HPI and Reports no additional cardiovascular complaints Respiratory: Reports as per HPI and Reports no additional respiratory complaints Gastrointestinal: Reports as per HPI and Reports no additional gastrointestinal complaints Genitourinary: Reports no additional female genitourinary complaints Musculoskeletal: Reports no additional musculoskeletal complaints Skin/Breast: Reports system reviewed and no additional complaints, except as docu Psychiatric: Reports no additional psychiatric complaints Endocrine: Reports no additional endocrine complaints Hematologic/Lymphatic: Reports no additional hematologic/lymphatic complaints Allergic/Immunologic: Reports no additional allergic/immunologic complaints Reports system reviewed and no additional complaints, except as documented and Reports Abnormal speech present PMFSH Past Medical History Medical History Asthenia HIV (human immunodeficiency virus infection) Bilateral primary osteoarthritis of knee Social History Social History Alcohol intake: never Advance Directives: No Advance Directives Information Provided: No Do you have a plan to hurt others: No Plan Current occupational status: disabled Current occupation: Right Handed Physical Exam Vital Signs: Vital Signs: Last Vital Signs Temp 98.9 F 01/09/24 05:39 Pulse 90 01/09/24 05:39 Resp 18 01/09/24 05:39 BP 139/87 01/09/24 05:39 Pulse Ox 98 01/09/24 05:39 O2 Del Method Room Air 01/09/24 05:39 BMI result Body Mass Index 44.4 Vital signs have been reviewed and appear to be correct. Blood pressure elevated. Heart rate normal. Respiratory rate normal. Temperature normal. Oxygen saturation normal. Appearance: Alert, agitated, belligerent. Head: Normal external exam. Normocephalic. Atraumatic. No [place] signs noted. No raccoon eyes noted Eyes: PERRLA. EOMI. Conjunctiva and sclera normal. Eyelids normal. ENT: TM's Normal. Pharynx normal. Uvula midline. Moist mucous membranes. No trismus noted. No drooling noted. No muffled voice noted. Neck: Normal inspection. Neck supple. FROM. No adenopathy. Thyroid Normal. No meningeal signs. No neck mass noted. CVS: Normal heart rate and rhythm. Heart sound normal. No murmurs noted. Pulses normal throughout. Respiratory: No respiratory distress. Painless inspiration. Breath sounds normal. No wheezes/rales/rhonchi noted. Chest nontender. No accessory muscle usage noted or decreased air movement noted. Abdomen: Soft and nontender. Bowel sounds normal in all 4 quadrants. No distention noted. No organomegaly noted. No visible injury noted. Back: No CVA tenderness. Full range of motion noted. Skin: Skin warm and dry. Normal skin color. Normal skin turgor. No rashes/lesions/lacerations noted. Extremities: No lower extremity edema. Extremities exhibit normal range of motion. Extremities nontender. Neuro: Cranial nerve exam: II-XII are grossly intact No motor deficit. No sensory deficit. Reflexes normal. Course Reevaluation(s) Reevaluation #1: Patient needed a chemical restraint by a Haldol/Ativan/Benadryl, patient now is calm and sedated, will await for patient to wake up and be re-evaluated by care team. Await for medical clearance signed to Dr. Sanchez. Time: 07:36 Medications Administered Discontinued Medications Generic Name Dose Route Start Last Admin Trade Name Freq PRN Reason Stop Dose Admin Diphenhydramine HCl 50 mg 01/09/24 05:20 01/09/24 05:25 Diphenhydramine Hcl 50 Mg/Ml Vial IM 01/09/24 05:21 50 mg ONCE ONE Administration Haloperidol Lactate 5 mg 01/09/24 05:20 01/09/24 05:25 Haloperidol Lactate 5 Mg/Ml Vial IM 01/09/24 05:21 5 mg STAT STA Administration Lorazepam 2 mg 01/09/24 05:20 01/09/24 05:25 Lorazepam 2 Mg/Ml Vial IM 01/09/24 05:21 2 mg ONCE ONE Administration Medical Decision Making Differential Diagnosis Differential Diagnoses: The differential diagnosis associated with the presentation includes (Acute psychosis, substance abuse, alcohol intoxication.) Admission/Observation Consideration of admission/observation: Escalation of care including admission/observation considered Discharge Plan Discharge Clinical Impression: Aggression Patient Disposition: Still a Patient Prescriptions: No Action celecoxib 100 mg capsule 200 mg PO BID 30 Days Qty: 120 4RF metronidazole [Flagyl] 500 mg tablet 500 mg PO BID Qty: 14 0RF ibuprofen 600 mg tablet 600 mg PO TID PRN (Reason: pain) Qty: 20 0RF ibuprofen 800 mg tablet 800 mg PO Q8H PRN (Reason: pain) Qty: 30 0RF acetaminophen [Tylenol] 325 mg tablet 650 mg PO QID PRN (Reason: pain) Qty: 30 0RF Biktarvy 50-200-25 mg tablet 1 tab PO DAILY Qty: 90 3RF Interventions: [place]-Suicide Risk Severity Scale Last Done: 01/09/24 06:03 Print Language: Korean
[2024-01-09] MEDS: LORazepam 2 MG/ML VIAL IM (05:25)
[2024-01-09] MEDS: diphenhydrAMINE HCL 50 MG/ML VIAL IM (05:25)
[2024-01-09] MEDS: Haloperidol Lactate 5 MG/ML VIAL IM (05:25)
[2024-01-09 05:39] VITALS: BP 139/87; PULSE 90; RESP 18; TEMP 37.2; O2SAT 98; BMI 44.4
--- NOTE | 2024-01-09 05:58 | PC.NURSE ---
skin check completed with security nearby and tech present, no evidence of contraband patient very reluctant to remove bra and was allowed to retain for support (pt is morbidly obese)
--- NOTE | 2024-01-09 06:09 | MHC.EDTECH ---
pt medicated upon arrival to pod due to aggression. unable to obtain urine sample/blood work from pt.. when asked if pt was able to provide a UA pt stated god doesn't like you. rn aware.
[2024-01-09 17:48] VITALS: BP 135/63; PULSE 72; RESP 18; TEMP 36.4; O2SAT 100
[2024-01-09 18:31] VITALS: BMI 44.5
--- NOTE | 2024-01-09 18:31 | PC.ADMIT ---
Monica was admitted to [facility], on a 12B, from [facility] on 01/09/24 for treatment of unspecified psychosis. Upon initial assessment, Monica is sedated and describes herself as drowsy so much of the assessment is done from the crisis evtina. She is able to recall some events prior to admission stating I was trying to tell my mother the truth but she thought I was lying and for the sake of my family's safety, I came here. According to swapnil, Monica was brought to the ED on 01/08/24 due to her mother stating she was having a schizophrenic episode and was discharged back home that day. On 01/09/24 she was brought in by police due to mormonism preoccupation and aggression towards her family with paranoia that they may be poisoning her food. She is calm and cooperative during admission assessment. Her mood is drowsy and her affect is blunted. She is limited thought process and does not appear to be internally preoccupied. Her concentration is poor, TW had to repeat questions multiple times. No mention of sikh during assessment. She denies SI/HI/AVH and anxiety/depression at this time. She reports recent weight loss but cannot recall how much or over how much time. She denies sleep and appetite disturbances. She denies ETOH and substance use, her most recent tox screen from 01/07/24 was negative. Per her EMR, she has a history of Asthenia, HIV, and Bilateral primary osteoarthritis of knee. Her only complaint offered is feeling drowsy. She was restrained on 01/09/24 at 0525, when she came to the ED, due to aggression. Her goal of admission is to go home to her fathers house. She is a high fall risk due to drowsiness and recent IM. She was placed on 15 minute checks for safety. Skin check completed by TW and Margarita Campos RN, she has multiple bruises and superficial scratches to her arms and visible stretch sidhu on her abdomen and legs.
[2024-01-09 20:00] VITALS: BP 136/57; PULSE 87; TEMP 36.6; O2SAT 98
[2024-01-10 08:00] VITALS: BP 132/75; PULSE 80; RESP 15; RESP 16; TEMP 36.4; O2SAT 99
[2024-01-10 08:06] LABS: MANUAL DIFF FLAG NO
[2024-01-10 08:15] LABS: Basophils Absolute Auto 0.1 X10*3/uL (0.0-0.2); Basophils Percent Auto 1.7 % (0-2); Eosinophils Absolute Auto 0.1 X10*3/uL (0.0-0.4); Eosinophils Percent Auto 2.7 % (0-4); Hematocrit 40.4 % (37.0-47.0); Hemoglobin 12.9 g/dl (12.0-16.0); Imm Gran Abs Auto 0.01 X10*3/uL (0.00-0.03); Imm Gran Pct Auto 0.3 % (0.0-0.4); Lymphocytes Absolute Auto 1.2 X10*3/uL (1.2-4.9); Lymphocytes Percent Auto 41.6 % (20-40); Mean Corpuscular HGB Conc 31.9 g/dl (31.0-35.0); Mean Corpuscular Hemoglobin 27.7 pg (27.0-33.0); Mean Corpuscular Volume 86.7 fL (80.0-98.0); Mean Platelet Volume 12.4 fL (9.4-12.3); Monocytes Absolute Auto 0.3 X10*3/uL (0.1-1.2); Monocytes Percent Auto 11.3 % (2-11); Neutrophils Absolute Auto 1.2 x10*3/uL (2.0-8.3); Neutrophils Percent Auto 42.4 % (45-73); Platelet Count 109 X10*3/uL (160-400); Red Blood Count 4.66 X10*6/uL (4.20-5.50); Red Cell Distribution Width 13.7 % (11.0-16.0); White Blood Count 2.9 X10*3/uL (4.8-10.8)
[2024-01-10 08:30] LABS: Alanine Aminotransferase 16 U/L (0-31); Albumin Level 3.7 g/dL (3.5-5.0); Alkaline Phosphatase 57 U/L (39-117); Anion Gap 12 (12-20); Aspartate Amino Transferase 27 U/L (5-31); Bilirubin Total 0.4 mg/dL (0.0-1.0); Blood Urea Nitrogen 18 mg/dL (9-16); Calcium 9.4 mg/dL (8.4-10.2); Carbon Dioxide 28 mmol/L (22-29); Chloride 102 mmol/L (96-108); Cholesterol 153 mg/dL (<200); Creatinine Clr Calc Pharmacy 97.5; Estimated Glomerular Filt Rate > 60; Glucose Fasting 87 mg/dL (60-99); HDL Cholesterol 42 mg/dL (>40); LDL Cholesterol Calculated 94 mg/dL (<100); Potassium 3.8 mmol/L (3.3-5.1); Sodium 138 mmol/L (135-145); Total Protein 8.8 g/dL (6.5-8.0); Triglycerides 86 mg/dL (<150)
[2024-01-10 08:32] LABS: Anion Gap 12 (12-20); Blood Urea Nitrogen 18 mg/dL (9-16); Calcium 9.4 mg/dL (8.4-10.2); Carbon Dioxide 26 mmol/L (22-29); Chloride 103 mmol/L (96-108); Creatinine Clr Calc Pharmacy 100.9; Estimated Glomerular Filt Rate > 60; Ethanol < 10 mg/dL; Glucose Random 87 mg/dL (60-115); Potassium 3.9 mmol/L (3.3-5.1); Sodium 137 mmol/L (135-145)
--- NOTE | 2024-01-10 08:58 | MHC.CLN ---
NUTRITION CONSULT FOR UNKNOWN WEIGHT LOSS. REVIEW OF WEIGHT HX SHOWS WIDELY VARYING WEIGHTS FROM 01/06/24 THROUGH 01/09/24. SUSPECT THAT SOME WEIGHTS IN THAT TIME FRAME ARE IN ERROR. REVIEW OF EMR INDICATES IN 12/25 PATIENT WALKING REGULARLY AND MAKING HEALTHY FOOD CHOICES IN EFFORT TO LOSE WEIGHT. BMI=44.5, OBESE. NEW DX HIV. AT HOME, SUSPICIOUS FOR FOOD BEING POISONED. NO ADDITIONAL NUTRITION INTERVENTIONS AT THIS TIME. PLEASE CONSULT RD IF PATIENT WITH POOR PO.
--- NOTE | 2024-01-10 09:14 | HO.PSYADMNOT ---
HPI Date of Service: 01/10/24 Chief Complaint: crisis Sources of Information: patient interviewed, chart reviewed and crisis/core team assessment reviewed HPI Subjective Notes: Haines Warning and Section 12B Narrative: Patient is a 48-year-old female with history of unspecified mood disorder and PTSD who presented to [facility] via police on section 12 due to aggressive behavior and paranoid delusions at home. Per crisis report, patient initially came to [facility] on 01/08/2024 after reported schizophrenic episode by her mother and was discharged with referrals to [facility]. Patient re-presented to [facility] on 01/09/24 from home on section 12, escorted by police, due to alevism preoccupation. It was reported by family that patient needed to be held down physically due to agitation and aggression. When in ER, patient required chemical restraints and expressed paranoid delusions about not feeling safe and believes family may be poisoning her food. Patient's mother reported patient has recently started reading the Bible more frequently after receiving news that she has HIV. Patient reports she came to ER voluntarily to show her mother that she is fine. She reports she has been reading the Bible and talking to God and came to the ER voluntarily at her mother's request. Patient reports she was recently at [facility] due to chest pain after taking 6 Tylenol for pain. She denies this was a suicide attempt and denies any current suicidal or homicidal ideation. Patient denies AH/VH. Patient reports she lives with her mother and is her primary caregiver. Patient reports she would like to have outpatient therapy and prescriber referrals. Patient denies any prior mental health history or inpatient psychiatric admissions. She denies any history of alcohol or substance use. Utox negative. During admission assessment, patient presents alert and oriented x3. Calm and cooperative. Patient reports feeling anxious ; patient stated, I came to the hospital because I was very anxious. At night I was seeing people that were not actually there. It was scary. When I got to the hospital I was seeing people that wanted to kill me. That was the 1st time that is ever happened to me . Patient reports no hx of visual hallucinations. Patient reports taking Sertraline prescribed by her PCP but stopped taking it because she no longer felt depressed or anxious . Patient reports she has known that she has had HIV for a while since her son was 5 years old . Patient stated, I didn't just find out. I had to go through a lot of therapy and I had to take medication for it . Patient reports that she considers herself alevism and states that she always reads the Bible. Patient stated, I have been serving the [employer] for 9 years . Patient denies any substance use. Utox negative. Patient reports she is willing to take psychiatric medications; risks/benefits reviewed. Patient reports she would like referrals to outpatient psychiatric providers. Past Psychiatric History: Patient reports this is her 1st inpatient psychiatric admission. She does not have outpatient psychiatric providers. Denies history of SA. Denies SIB. Medical Evaluation Reviewed: Yes [facility] Medical History Asthenia HIV (human immunodeficiency virus infection) Bilateral primary osteoarthritis of knee Family History: Unknown Social History: Lives with mother and sometimes with brother. but . One adult son. SSI. Completed 11th grade. Substance History: Patient denies any substance use. U tox negative. Trauma History: Yes Diagnostics Vital Signs (24Hr): Vital Signs - 24 hr 01/09/24 17:48 01/09/24 20:00 01/10/24 08:00 Temperature 97.6 F 97.9 F 97.6 F Pulse Rate 72 87 80 Respiratory Rate 18 15 Blood Pressure 135/63 136/57 L 132/75 Pulse Oximetry 100 98 99 Oxygen Delivery Method Room Air Room Air Room Air 01/10/24 08:00 Temperature 97.6 F Pulse Rate 80 Respiratory Rate 16 Blood Pressure 132/75 Pulse Oximetry 99 Oxygen Delivery Method Room Air BMI result Body Mass Index 44.5 Labs 01/10/24 07:46 01/10/24 07:46 Labs: Laboratory Results - last 48 hr 01/10/24 01/10/24 01/10/24 07:46 07:46 07:46 WBC 2.9 L RBC 4.66 Hgb 12.9 Hct 40.4 MCV 86.7 MCH 27.7 MCHC 31.9 RDW 13.7 Plt Count 109 L MPV 12.4 H Immature Gran % (Auto) 0.3 Neut % (Auto) 42.4 L Lymph % (Auto) 41.6 H [place] % (Auto) 11.3 H Eos % (Auto) 2.7 Baso % (Auto) 1.7 Lymph # (Auto) 1.2 [place] # (Auto) 0.3 Eos # (Auto) 0.1 Baso # (Auto) 0.1 Abs Immat Gran (auto) 0.01 Absolute Neuts (auto) 1.2 L Absolute Nucleated RBC 0.000 Nucleated RBC % (auto) 0.0 Sodium 137 138 Potassium 3.9 3.8 Chloride 103 Carbon Dioxide Anion Gap BUN Creatinine Estim Creat Clear Calc Estimated GFR Random Glucose Fasting Glucose Calcium Total Bilirubin AST ALT Alkaline Phosphatase Total Protein Albumin Triglycerides Cholesterol LDL Cholesterol, Calc HDL Cholesterol Ethyl Alcohol 01/10/24 01/10/24 01/10/24 07:46 07:46 07:46 WBC RBC Hgb Hct MCV MCH MCHC RDW Plt Count MPV Immature Gran % (Auto) Neut % (Auto) Lymph % (Auto) [place] % (Auto) Eos % (Auto) Baso % (Auto) Lymph # (Auto) [place] # (Auto) Eos # (Auto) Baso # (Auto) Abs Immat Gran (auto) Absolute Neuts (auto) Absolute Nucleated RBC Nucleated RBC % (auto) Sodium Potassium Chloride 102 Carbon Dioxide 26 28 Anion Gap 12 12 BUN 18 H Creatinine Estim Creat Clear Calc Estimated GFR Random Glucose Fasting Glucose Calcium Total Bilirubin AST ALT Alkaline Phosphatase Total Protein Albumin Triglycerides Cholesterol LDL Cholesterol, Calc HDL Cholesterol Ethyl Alcohol 01/10/24 01/10/24 01/10/24 07:46 07:46 07:46 WBC RBC Hgb Hct MCV MCH MCHC RDW Plt Count MPV Immature Gran % (Auto) Neut % (Auto) Lymph % (Auto) [place] % (Auto) Eos % (Auto) Baso % (Auto) Lymph # (Auto) [place] # (Auto) Eos # (Auto) Baso # (Auto) Abs Immat Gran (auto) Absolute Neuts (auto) Absolute Nucleated RBC Nucleated RBC % (auto) Sodium Potassium Chloride Carbon Dioxide Anion Gap BUN 18 H Creatinine 0.85 0.88 Estim Creat Clear Calc 100.9 97.5 Estimated GFR > 60 Random Glucose Fasting Glucose Calcium Total Bilirubin AST ALT Alkaline Phosphatase Total Protein Albumin Triglycerides Cholesterol LDL Cholesterol, Calc HDL Cholesterol Ethyl Alcohol 01/10/24 01/10/24 07:46 07:46 WBC RBC Hgb Hct MCV MCH MCHC RDW Plt Count MPV Immature Gran % (Auto) Neut % (Auto) Lymph % (Auto) [place] % (Auto) Eos % (Auto) Baso % (Auto) Lymph # (Auto) [place] # (Auto) Eos # (Auto) Baso # (Auto) Abs Immat Gran (auto) Absolute Neuts (auto) Absolute Nucleated RBC Nucleated RBC % (auto) Sodium Potassium Chloride Carbon Dioxide Anion Gap BUN Creatinine Estim Creat Clear Calc Estimated GFR > 60 Random Glucose 87 Fasting Glucose 87 Calcium 9.4 9.4 D Total Bilirubin 0.4 AST 27 ALT 16 Alkaline Phosphatase 57 Total Protein 8.8 H Albumin 3.7 Triglycerides 86 Cholesterol 153 LDL Cholesterol, Calc 94 HDL Cholesterol 42 Ethyl Alcohol < 10 Meds/Allergies Meds Home Medications ?Medication ?Instructions ?Recorded ?Confirmed ?Type Unobtainable 01/09/24 01/09/24 History Allergies Allergies Allergy/AdvReac Type Severity Reaction Status Date / Time IV contrast Allergy Unknown Anaphylaxis Uncoded 01/09/24 05:44 pollen Allergy Unknown unknown Uncoded 01/09/24 05:44 Mental Status Exam Mental Status Exam Patient Appearance: Appropriate Patient Orientation: Person, Place and Situation Level of Consciousness: Awake, Appropriate and Alert Patient Behavior: Appropriate, Cooperative, Anxious and Good Eye Contact Mood Description: Anxious Affect Description: Anxious Ability to Follow Directions: Good Speech Pattern: Clear and Appropriate Hallucinations: None Thought Process: Goal Oriented Depressive Symptoms: Increased Anxiety Assessment & Plan Assessment & Plan (1) Mood disorder: Status: Acute Code(s): F39 - Unspecified mood [affective] disorder (2) PTSD (post-traumatic stress disorder): Status: Acute Code(s): F43.10 - Post-traumatic stress disorder, unspecified (3) HIV (human immunodeficiency virus infection): Status: Acute Code(s): B20 - Human immunodeficiency virus [HIV] disease Plan Patient is a 48-year-old female with history of unspecified mood disorder and PTSD who presented to [facility] via police on section 12 due to aggressive behavior and paranoid delusions at home. Plan: 12B 15 minute safety checks Start: Risperdal 0.5mg PO BID Consult to Infectious Disease; ? HIV encephalopathy CT scan of head Labs ordered; B12/folate, TSH, CBC, Lyme screen, UA Obtain collateral MOCA obtained from OT; patient scored 13/30 indicating moderate cognitive impairment. Referral to outpatient psychiatric providers Discharge planning Patient educated on: diagnosis and medication risk/benefits Reason for continued inpatient stay Substantial Risk for: med/psych decompensation Statement Statement: I have reviewed the history and physical and performed a pertinent examination on my patient. No changes have occurred unless specified. If the History and Physical was not performed prior to admission, the Hospitalist's service will be consulted for completing the admission physical. Time Spent With Patient Time: Total time managing care of this patient today _60___ minutes.
--- NOTE | 2024-01-10 09:40 | PC.NURSE ---
This group underwriter met with chief wheelage clerk, patient and patients mother. Patient was asking to leave, so she was given an explanation of how this process will work, and how to request a family meeting with provider/health care social worker. Pt and mother both denied any additional questions/concerns at this time. This group underwriter will text provider to make her aware of desire of family meeting.
--- NOTE | 2024-01-10 15:27 | PC.NURSE ---
Pt completed a MOCA assessment with racebook writer scoring a 13 out of 30 indication a moderate cognitive impairment.
[2024-01-10 18:09] LABS: MANUAL DIFF FLAG NO
[2024-01-10 18:22] LABS: Eosinophils Absolute Auto 0.1 X10*3/uL (0.0-0.4); Eosinophils Percent Auto 2.1 % (0-4); Hematocrit 41.2 % (37.0-47.0); Hemoglobin 13.2 g/dl (12.0-16.0); Imm Gran Abs Auto 0.01 X10*3/uL (0.00-0.03); Imm Gran Pct Auto 0.3 % (0.0-0.4); Lymphocytes Absolute Auto 1.2 X10*3/uL (1.2-4.9); Lymphocytes Percent Auto 31.2 % (20-40); Mean Corpuscular Hemoglobin 27.4 pg (27.0-33.0); Mean Corpuscular Volume 85.7 fL (80.0-98.0); Mean Platelet Volume 12.1 fL (9.4-12.3); Monocytes Absolute Auto 0.4 X10*3/uL (0.1-1.2); Monocytes Percent Auto 10.8 % (2-11); Neutrophils Absolute Auto 2.1 x10*3/uL (2.0-8.3); Neutrophils Percent Auto 54.6 % (45-73); Platelet Count 109 X10*3/uL (160-400); Red Blood Count 4.81 X10*6/uL (4.20-5.50); Red Cell Distribution Width 13.7 % (11.0-16.0); White Blood Count 3.8 X10*3/uL (4.8-10.8)
--- NOTE | 2024-01-10 18:31 | PC.NURSE ---
This investigative writer offered pt the UA three times this shift. She said no each time.
[2024-01-10 18:45] LABS: TSH reflex Free T4 4.05 uIU/mL (0.32-4.0)
[2024-01-10 18:59] LABS: Folate 7.6 ng/mL (> or = 4.0); Vitamin B12 599 pg/mL (200-900)
[2024-01-10 19:25] LABS: Glucose, Whole Blood 84 mg/dL (60-115)
--- NOTE | 2024-01-10 19:25 | PC.NURSE ---
Pt stating general malaise, with right leg pain. She is shaking. BG and VS WNL. Pt declining to lay down in bed, even though she has not slept in a few days. Pt offered pain medication, and she declined this as well. scallop cutter provider made aware.
[2024-01-10 19:36] LABS: Free T4 (Free Thyroxine) 1.08 ng/dL (0.71-1.85)
[2024-01-10 20:00] VITALS: BP 118/60; PULSE 82; RESP 16; TEMP 37; O2SAT 96
[2024-01-10] MEDS: Acetaminophen 325 MG TABLET 650 MG PO (23:51)
[2024-01-11 07:00] VITALS: BMI 45.0
[2024-01-11 07:59] VITALS: BP 136/64; PULSE 68; RESP 16; TEMP 36.5; O2SAT 100
[2024-01-11] MEDS: risperiDONE 0.5 MG TABLET PO (10:38)
--- NOTE | 2024-01-11 10:44 | P.PNPSI_ITS ---
Subjective Subjective Date of Service: 01/11/24 Reason For Visit: crisis Subjective Notes: Section 12B Interim History: Met with pt, pt's mother and protective services social worker, Kelsi. Patient reports feeling fine today; pt requesting to be discharged home. Pt stated, I promise I will follow up with my outpatient doctors. I just don't want to be in the hosptial . Pt's mother reports pt does not have hx of mental illness or aggression. Patient's mother encouraged pt to stay in the hospital for work up; pt agreed. She is medication compliant. Awaiting results from CT and labs. 12b up tomorrow. pt denies SI/HI/VH/AH. Showered. Medication Compliance: Yes Side effects from medications: No Review of Systems Constitutional: Reports as per HPI Eyes: Reports as per HPI Reports as per HPI Cardiovascular: Reports as per HPI Respiratory: Reports as per HPI Gastrointestinal: Reports as per HPI Genitourinary: Reports as per HPI Musculoskeletal: Reports as per HPI Skin/Breast: Reports as per HPI Reports as per HPI Psychiatric: Reports as per HPI Endocrine: Reports as per HPI Hematologic/Lymphatic: Reports as per HPI Allergic/Immunologic: Reports as per HPI Mental Status Exam Mental Status Exam Narrative: Pt is alert and oriented; behavior is cooperative, friendly and calm; dressed in casual attire; mood is described as good ; eye contact appropriate; Speech is normal rate, volume and not pressured; thought process is organized and goal directed; Thought content is on tx; otherwise pertinent to relevant topics and without any delusional content, paranoid ideations or grandiosity; denies SI/HI/VH/AH. Diagnostics Vital Signs (24Hr): Vital Signs - 24 hr 01/10/24 20:00 01/11/24 07:59 Temperature 98.6 F 97.7 F Pulse Rate 82 68 Respiratory Rate 16 16 Blood Pressure 118/60 136/64 Pulse Oximetry 96 100 Oxygen Delivery Method Room Air Room Air BMI result Body Mass Index 44.5 Labs 01/10/24 18:04 01/10/24 07:46 Labs: Laboratory Results - last 48 hr 01/10/24 01/10/24 01/10/24 07:46 07:46 07:46 WBC 2.9 L RBC 4.66 Hgb 12.9 Hct 40.4 MCV 86.7 MCH 27.7 MCHC 31.9 RDW 13.7 Plt Count 109 L MPV 12.4 H Immature Gran % (Auto) 0.3 Neut % (Auto) 42.4 L Lymph % (Auto) 41.6 H [place] % (Auto) 11.3 H Eos % (Auto) 2.7 Baso % (Auto) 1.7 Lymph # (Auto) 1.2 [place] # (Auto) 0.3 Eos # (Auto) 0.1 Baso # (Auto) 0.1 Abs Immat Gran (auto) 0.01 Absolute Neuts (auto) 1.2 L Absolute Nucleated RBC 0.000 Nucleated RBC % (auto) 0.0 Sodium 137 138 Potassium 3.9 3.8 Chloride 103 Carbon Dioxide Anion Gap BUN Creatinine Estim Creat Clear Calc Estimated GFR POC Glucose Random Glucose Fasting Glucose Calcium Total Bilirubin AST ALT Alkaline Phosphatase Total Protein Albumin Triglycerides Cholesterol LDL Cholesterol, Calc HDL Cholesterol Vitamin B12 Folate TSH Free T4 Ethyl Alcohol 01/10/24 01/10/24 01/10/24 07:46 07:46 07:46 WBC RBC Hgb Hct MCV MCH MCHC RDW Plt Count MPV Immature Gran % (Auto) Neut % (Auto) Lymph % (Auto) [place] % (Auto) Eos % (Auto) Baso % (Auto) Lymph # (Auto) [place] # (Auto) Eos # (Auto) Baso # (Auto) Abs Immat Gran (auto) Absolute Neuts (auto) Absolute Nucleated RBC Nucleated RBC % (auto) Sodium Potassium Chloride 102 Carbon Dioxide 26 28 Anion Gap 12 12 BUN 18 H Creatinine Estim Creat Clear Calc Estimated GFR POC Glucose Random Glucose Fasting Glucose Calcium Total Bilirubin AST ALT Alkaline Phosphatase Total Protein Albumin Triglycerides Cholesterol LDL Cholesterol, Calc HDL Cholesterol Vitamin B12 Folate TSH Free T4 Ethyl Alcohol 01/10/24 01/10/24 01/10/24 07:46 07:46 07:46 WBC RBC Hgb Hct MCV MCH MCHC RDW Plt Count MPV Immature Gran % (Auto) Neut % (Auto) Lymph % (Auto) [place] % (Auto) Eos % (Auto) Baso % (Auto) Lymph # (Auto) [place] # (Auto) Eos # (Auto) Baso # (Auto) Abs Immat Gran (auto) Absolute Neuts (auto) Absolute Nucleated RBC Nucleated RBC % (auto) Sodium Potassium Chloride Carbon Dioxide Anion Gap BUN 18 H Creatinine 0.85 0.88 Estim Creat Clear Calc 100.9 97.5 Estimated GFR > 60 POC Glucose Random Glucose Fasting Glucose Calcium Total Bilirubin AST ALT Alkaline Phosphatase Total Protein Albumin Triglycerides Cholesterol LDL Cholesterol, Calc HDL Cholesterol Vitamin B12 Folate TSH Free T4 Ethyl Alcohol 01/10/24 01/10/24 01/10/24 07:46 07:46 18:04 WBC 3.8 L RBC 4.81 Hgb 13.2 Hct 41.2 MCV 85.7 MCH 27.4 MCHC 32.0 RDW 13.7 Plt Count 109 L MPV 12.1 Immature Gran % (Auto) 0.3 Neut % (Auto) 54.6 Lymph % (Auto) 31.2 [place] % (Auto) 10.8 Eos % (Auto) 2.1 Baso % (Auto) 1.0 Lymph # (Auto) 1.2 [place] # (Auto) 0.4 Eos # (Auto) 0.1 Baso # (Auto) 0.0 Abs Immat Gran (auto) 0.01 Absolute Neuts (auto) 2.1 Absolute Nucleated RBC 0.000 Nucleated RBC % (auto) 0.0 Sodium Potassium Chloride Carbon Dioxide Anion Gap BUN Creatinine Estim Creat Clear Calc Estimated GFR > 60 POC Glucose Random Glucose 87 Fasting Glucose 87 Calcium 9.4 9.4 D Total Bilirubin 0.4 AST 27 ALT 16 Alkaline Phosphatase 57 Total Protein 8.8 H Albumin 3.7 Triglycerides 86 Cholesterol 153 LDL Cholesterol, Calc 94 HDL Cholesterol 42 Vitamin B12 599 Folate 7.6 TSH 4.05 H Free T4 1.08 Ethyl Alcohol < 10 01/10/24 19:18 WBC RBC Hgb Hct MCV MCH MCHC RDW Plt Count MPV Immature Gran % (Auto) Neut % (Auto) Lymph % (Auto) [place] % (Auto) Eos % (Auto) Baso % (Auto) Lymph # (Auto) [place] # (Auto) Eos # (Auto) Baso # (Auto) Abs Immat Gran (auto) Absolute Neuts (auto) Absolute Nucleated RBC Nucleated RBC % (auto) Sodium Potassium Chloride Carbon Dioxide Anion Gap BUN Creatinine Estim Creat Clear Calc Estimated GFR POC Glucose 84 Random Glucose Fasting Glucose Calcium Total Bilirubin AST ALT Alkaline Phosphatase Total Protein Albumin Triglycerides Cholesterol LDL Cholesterol, Calc HDL Cholesterol Vitamin B12 Folate TSH Free T4 Ethyl Alcohol Medications Medications Current Medications Acetaminophen (Acetaminophen 325 Mg Tablet) 650 mg PO Q6H PRN PRN Reason: Headache/Pain Mild Scale (1-3) Last Admin: 01/10/24 23:51 Dose: 650 mg Al Hydroxide/Mg Hydroxide (Magnesium Hydrox/Alum Hydrox 30 Ml Oral.Susp) 30 ml PO Q6H PRN PRN Reason: Heartburn/Nausea Hydroxyzine HCl (Hydroxyzine Hcl 25 Mg Tablet) 25 mg PO Q6H PRN PRN Reason: Anxiety Magnesium Hydroxide (Milk Of Magnesia 30 Ml Oral.Susp) 30 ml PO DAILY PRN PRN Reason: Constipation Olanzapine (Olanzapine 5 Mg Tablet) 5 mg PO Q4H PRN PRN Reason: agitation Risperidone (Risperidone 0.5 Mg Tablet) 0.5 mg PO BID YANIV Last Admin: 01/11/24 10:38 Dose: 0.5 mg Trazodone HCl (Trazodone Hcl 50 Mg Tablet) 50 mg PO BEDTIME MRX1 PRN PRN Reason: Insomnia Allergies Allergies Allergy/AdvReac Type Severity Reaction Status Date / Time IV contrast Allergy Unknown Anaphylaxis Uncoded 01/09/24 05:44 pollen Allergy Unknown unknown Uncoded 01/09/24 05:44 Assessment & Plan Assessment & Plan (1) Mood disorder: Status: Acute Code(s): F39 - Unspecified mood [affective] disorder (2) PTSD (post-traumatic stress disorder): Status: Acute Code(s): F43.10 - Post-traumatic stress disorder, unspecified (3) HIV (human immunodeficiency virus infection): Status: Acute Code(s): B20 - Human immunodeficiency virus [HIV] disease Plan Patient is a 48-year-old female with history of unspecified mood disorder and PTSD who presented to [facility] via police on section 12 due to aggressive behavior and paranoid delusions at home. Plan: 12B 15 minute safety checks Start: Risperdal 0.5mg PO BID Consult to Infectious Disease; ? HIV encephalopathy CT scan of head Labs ordered; B12/folate, TSH, CBC, Lyme screen, UA Obtain collateral MOCA obtained from OT; patient scored 13/30 indicating moderate cognitive impairment. Referral to outpatient psychiatric providers Discharge planning 01/10: Met with pt, pt's mother and protective services social worker, Kelsi. Patient reports feeling fine today; pt requesting to be discharged home. Pt stated, I promise I will follow up with my outpatient doctors. I just don't want to be in the hospital . Pt's mother reports pt does not have hx of mental illness/aggression/autism spectrum d/o. Patient's mother encouraged pt to stay in the hospital for work up; pt agreed. She is medication compliant. Awaiting results from CT and labs. 12b up tomorrow. pt denies SI/HI/VH/AH. Showered. Patient educated on: diagnosis, medication risk/benefits and therapeutic strategies Guardian/Caregiver educated on: diagnosis and medication risk/benefits Reason for continued inpatient stay Substantial Risk for: med/psych decompensation Time Spent With Patient Time: Total time managing care of this patient today _30___ minutes.
[2024-01-11] MEDS: OLANZapine 5 MG TABLET PO (12:17)
[2024-01-11] MEDS: Acetaminophen 325 MG TABLET 650 MG PO (13:23)
[2024-01-11 16:23] LABS: Lyme Abs Screen <0.90 index
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
[2024-01-11 20:00] VITALS: BP 137/81; PULSE 67; RESP 18; TEMP 36.6; O2SAT 100
--- NOTE | 2024-01-11 22:48 | P.CNID_ITS ---
History of Present Illness Data of Consult Service Date: 01/10/24 Primary Care Provider: Monica Damian MD HIV care HPI Reason for consult: HIV care She reports no care in years. She was seen at [facility] and wants to return. She has fatigue and increased abdominal girth. Review of Systems 2 Review of Systems: Yes all other systems are reviewed and are negative PMFSH Past Medical History Medical History Asthenia HIV (human immunodeficiency virus infection) Bilateral primary osteoarthritis of knee Family History Family history: reviewed and not pertinent Social History Social History Household Members: Family Housing: House Do you presently have visiting nurse or other home services: No Alcohol intake: never Patient Tobacco Use Status: Never used Tobacco Use of substances other than those prescribed or required for medical reasons: No Currently Displaying Signs/Symptoms of Drug Intoxication Withdrawal: No Any prior treatment program specific to substance use: No Have you been hit, kicked, punched, or otherwise hurt by someone within the past year? If so, by whom?: No Do you feel safe in your current relationship?: Yes Is there a partner from a previous relationship who is making you feel unsafe now?: No Are you made to feel afraid or neglected: No Advance Directives: No Advance Directives Information Provided: No Do you have thoughts of harming others: None Do you have a plan to hurt others: No Plan Recently lost weight without trying: Unsure How much weight loss: Unsure Eating poorly because of decreased appetite: No Nutrition screen score: 4 Nutrition Risks: No Nutritional Risk Patient : No : No Poor oral hygiene: No service: No Current occupational status: disabled Current occupation: Right Handed Sexual orientation: Unable to collect Meds Allergies Allergy/AdvReac Type Severity Reaction Status Date / Time IV contrast Allergy Unknown Anaphylaxis Uncoded 01/09/24 05:44 pollen Allergy Unknown unknown Uncoded 01/09/24 05:44 Active Medications: Current Medications Acetaminophen (Acetaminophen 325 Mg Tablet) 650 mg PO Q6H PRN PRN Reason: Headache/Pain Mild Scale (1-3) Last Admin: 01/11/24 13:23 Dose: 650 mg Al Hydroxide/Mg Hydroxide (Magnesium Hydrox/Alum Hydrox 30 Ml Oral.Susp) 30 ml PO Q6H PRN PRN Reason: Heartburn/Nausea Hydroxyzine HCl (Hydroxyzine Hcl 25 Mg Tablet) 25 mg PO Q6H PRN PRN Reason: Anxiety Magnesium Hydroxide (Milk Of Magnesia 30 Ml Oral.Susp) 30 ml PO DAILY PRN PRN Reason: Constipation Olanzapine (Olanzapine 5 Mg Tablet) 5 mg PO Q4H PRN PRN Reason: agitation Last Admin: 01/11/24 12:17 Dose: 5 mg Risperidone (Risperidone 0.5 Mg Tablet) 0.5 mg PO BID YANIV Last Admin: 01/11/24 20:32 Dose: Not Given Trazodone HCl (Trazodone Hcl 50 Mg Tablet) 50 mg PO BEDTIME MRX1 PRN PRN Reason: Insomnia Home Medications ?Medication ?Instructions ?Recorded ?Confirmed ?Last Taken ?Type Unobtainable 01/09/24 01/09/24 Unknown History Physical Exam 2 Vital Signs: Vital Signs: Last Vital Signs Temp 97.8 F 01/11/24 20:00 Pulse 67 01/11/24 20:00 Resp 18 01/11/24 20:00 BP 137/81 01/11/24 20:00 Pulse Ox 100 01/11/24 20:00 O2 Del Method Room Air 01/11/24 20:00 BMI result Body Mass Index 45.0 Const: General: cooperative HEENT: Head: Yes normal to inspection Face and sinus: Yes normal facial exam Mouth: Normal oral and palatal mucosa present Teeth and gingiva: d entition normal Eyes: General: appearance normal, both eyes and all related structures P upils: Equal, round and reactive pupils present Resp: Effort & Inspection: normal respiratory effort Cardio: Rate: regular rate Rhythm: regular rhythm GI: Palpation (GI): Soft to palpation and nontender : General: Yes no CVA tenderness Back/Spine/Pelvis: Back: no CVA tenderness Skin: General skin exam: no rashes or lesions noted Neuro: General: moves all extremities Cranial nerves: Yes Equal, round and reactive pupils present Extrem: General: Yes normal to inspection Psych: Appearance: grossly normal Results Labs 01/10/24 18:04 01/10/24 07:46 Assessment and Plan (1) PTSD (post-traumatic stress disorder): Status: Acute (2) Mood disorder: Status: Acute (3) HIV (human immunodeficiency virus infection): Status: Acute Plan Check CD4 count and viral load Give Bierikaarvy See at [facility],they are aware and will reach out.
[2024-01-12] MEDS: Acetaminophen 325 MG TABLET 650 MG PO (02:54)
[2024-01-12] MEDS: OLANZapine 5 MG TABLET PO (03:38)
[2024-01-12 07:41] VITALS: BP 126/75; PULSE 69; RESP 14; TEMP 36.4; O2SAT 100
[2024-01-12] MEDS: risperiDONE 0.5 MG TABLET PO (08:41)
[2024-01-12] MEDS: Bictegrav/Emtricit/Tenofov Ala TABLET 1 TAB PO (09:07)
--- NOTE | 2024-01-12 10:31 | PM.PSYDC ---
DS: Providers Provider Date of Service: 01/12/24 Date of admission: 01/09/24 16:27 Date of discharge: 01/12/24 Primary care physician: Monica Damian MD Admitting clinician: Anju Smyth Attending physician on admission: Kirt Aiken Consults: 01/10/24 15:53 Consult to Infectious Diseases Routine Consulting Provider: [facility] Reason for consultation: HIV+, previously taking medication, ?HIV encephalopathy Attending physician on discharge: Kirt Aiken Discharging clinician: Anju Smyth DS: Diagnosis Discharge Diagnosis (1) PTSD (post-traumatic stress disorder): Status: Acute (2) Mood disorder: Status: Acute (3) HIV (human immunodeficiency virus infection): Status: Acute DS: Medications Discharge Medications Home Medications: Previous Rx's ?Medication ?Instructions ?Recorded bictegravir 50 mg-emtricitabine 1 tab PO DAILY 30 days #30 tabs 01/12/24 200 mg-tenofovir alafenam 25 mg tablet (Biktarvy) olanzapine 5 mg tablet 5 mg PO DAILY PRN agitation 30 01/12/24 days #30 tabs Mental Status Exam Mental Status Exam Narrative: Pt is alert and oriented; behavior is cooperative, friendly and calm; dressed in casual attire; mood is described as good ; eye contact appropriate; Speech is normal rate, volume and not pressured; thought process is organized and goal directed; Thought content is on tx; otherwise pertinent to relevant topics and without any delusional content, paranoid ideations or grandiosity; denies SI/HI/VH/AH. Data Data Completed and Pending Completed studies during hospitalization [Text1]: 01/10/24 01/10/24 01/10/24 07:46 07:46 07:46 WBC 2.9 L RBC 4.66 Hgb 12.9 Hct 40.4 MCV 86.7 MCH 27.7 MCHC 31.9 RDW 13.7 Plt Count 109 L MPV 12.4 H Immature Gran % (Auto) 0.3 Neut % (Auto) 42.4 L Lymph % (Auto) 41.6 H [place] % (Auto) 11.3 H Eos % (Auto) 2.7 Baso % (Auto) 1.7 Lymph # (Auto) 1.2 [place] # (Auto) 0.3 Eos # (Auto) 0.1 Baso # (Auto) 0.1 Abs Immat Gran (auto) 0.01 Absolute Neuts (auto) 1.2 L Absolute Nucleated RBC 0.000 Nucleated RBC % (auto) 0.0 Sodium 137 138 Potassium 3.9 3.8 Chloride 103 Carbon Dioxide Anion Gap BUN Creatinine Estim Creat Clear Calc Estimated GFR POC Glucose Random Glucose Fasting Glucose Calcium Total Bilirubin AST ALT Alkaline Phosphatase Total Protein Albumin Triglycerides Cholesterol LDL Cholesterol, Calc HDL Cholesterol Vitamin B12 Folate TSH Free T4 Ethyl Alcohol Lymphocyte Subset Cmmnt Total Lymphocytes % CD3 Cells Absolute CD3 Count % CD4 Cells Absolute CD4 Count CD4/CD8 Ratio % CD8 Cells Absolute CD8 Count Lyme Screen IgG & IgM Lyme Progressive Test HIV-1 RNA copies/mL HIV-1 RNA logcopies/mL Toxoplasma IgG Ab Toxoplasma IgM Ab Toxoplasma Ab Interp 01/10/24 01/10/24 01/10/24 07:46 07:46 07:46 WBC RBC Hgb Hct MCV MCH MCHC RDW Plt Count MPV Immature Gran % (Auto) Neut % (Auto) Lymph % (Auto) [place] % (Auto) Eos % (Auto) Baso % (Auto) Lymph # (Auto) [place] # (Auto) Eos # (Auto) Baso # (Auto) Abs Immat Gran (auto) Absolute Neuts (auto) Absolute Nucleated RBC Nucleated RBC % (auto) Sodium Potassium Chloride 102 Carbon Dioxide 26 28 Anion Gap 12 12 BUN 18 H Creatinine Estim Creat Clear Calc Estimated GFR POC Glucose Random Glucose Fasting Glucose Calcium Total Bilirubin AST ALT Alkaline Phosphatase Total Protein Albumin Triglycerides Cholesterol LDL Cholesterol, Calc HDL Cholesterol Vitamin B12 Folate TSH Free T4 Ethyl Alcohol Lymphocyte Subset Cmmnt Total Lymphocytes % CD3 Cells Absolute CD3 Count % CD4 Cells Absolute CD4 Count CD4/CD8 Ratio % CD8 Cells Absolute CD8 Count Lyme Screen IgG & IgM Lyme Progressive Test HIV-1 RNA copies/mL HIV-1 RNA logcopies/mL Toxoplasma IgG Ab Toxoplasma IgM Ab Toxoplasma Ab Interp 01/10/24 01/10/24 01/10/24 07:46 07:46 07:46 WBC RBC Hgb Hct MCV MCH MCHC RDW Plt Count MPV Immature Gran % (Auto) Neut % (Auto) Lymph % (Auto) [place] % (Auto) Eos % (Auto) Baso % (Auto) Lymph # (Auto) [place] # (Auto) Eos # (Auto) Baso # (Auto) Abs Immat Gran (auto) Absolute Neuts (auto) Absolute Nucleated RBC Nucleated RBC % (auto) Sodium Potassium Chloride Carbon Dioxide Anion Gap BUN 18 H Creatinine 0.85 0.88 Estim Creat Clear Calc 100.9 97.5 Estimated GFR > 60 POC Glucose Random Glucose Fasting Glucose Calcium Total Bilirubin AST ALT Alkaline Phosphatase Total Protein Albumin Triglycerides Cholesterol LDL Cholesterol, Calc HDL Cholesterol Vitamin B12 Folate TSH Free T4 Ethyl Alcohol Lymphocyte Subset Cmmnt Total Lymphocytes % CD3 Cells Absolute CD3 Count % CD4 Cells Absolute CD4 Count CD4/CD8 Ratio % CD8 Cells Absolute CD8 Count Lyme Screen IgG & IgM Lyme Progressive Test HIV-1 RNA copies/mL HIV-1 RNA logcopies/mL Toxoplasma IgG Ab Toxoplasma IgM Ab Toxoplasma Ab Inter 01/10/24 01/10/24 01/10/24 07:46 07:46 18:04 WBC 3.8 L RBC 4.81 Hgb 13.2 Hct 41.2 MCV 85.7 MCH 27.4 MCHC 32.0 RDW 13.7 Plt Count 109 L MPV 12.1 Immature Gran % (Auto) 0.3 Neut % (Auto) 54.6 Lymph % (Auto) 31.2 [place] % (Auto) 10.8 Eos % (Auto) 2.1 Baso % (Auto) 1.0 Lymph # (Auto) 1.2 [place] # (Auto) 0.4 Eos # (Auto) 0.1 Baso # (Auto) 0.0 Abs Immat Gran (auto) 0.01 Absolute Neuts (auto) 2.1 Absolute Nucleated RBC 0.000 Nucleated RBC % (auto) 0.0 Sodium Potassium Chloride Carbon Dioxide Anion Gap BUN Creatinine Estim Creat Clear Calc Estimated GFR > 60 POC Glucose Random Glucose 87 Fasting Glucose 87 Calcium 9.4 9.4 D Total Bilirubin 0.4 AST 27 ALT 16 Alkaline Phosphatase 57 Total Protein 8.8 H Albumin 3.7 Triglycerides 86 Cholesterol 153 LDL Cholesterol, Calc 94 HDL Cholesterol 42 Vitamin B12 599 Folate 7.6 TSH 4.05 H Free T4 1.08 Ethyl Alcohol < 10 Lymphocyte Subset Cmmnt Total Lymphocytes % CD3 Cells Absolute CD3 Count % CD4 Cells Absolute CD4 Count CD4/CD8 Ratio % CD8 Cells Absolute CD8 Count Lyme Screen IgG & IgM <0.90 Lyme Progressive Test Pending HIV-1 RNA copies/mL HIV-1 RNA logcopies/mL Toxoplasma IgG Ab Toxoplasma IgM Ab Toxoplasma Ab Inter 11/06/24 11/07/24 11/07/24 19:18 16:03 23:24 WBC RBC Hgb Hct MCV MCH MCHC RDW Plt Count MPV Immature Gran % (Auto) Neut % (Auto) Lymph % (Auto) [place] % (Auto) Eos % (Auto) Baso % (Auto) Lymph # (Auto) [place] # (Auto) Eos # (Auto) Baso # (Auto) Abs Immat Gran (auto) Absolute Neuts (auto) Absolute Nucleated RBC Nucleated RBC % (auto) Sodium Potassium Chloride Carbon Dioxide Anion Gap BUN Creatinine Estim Creat Clear Calc Estimated GFR POC Glucose 84 Random Glucose Fasting Glucose Calcium Total Bilirubin AST ALT Alkaline Phosphatase Total Protein Albumin Triglycerides Cholesterol LDL Cholesterol, Calc HDL Cholesterol Vitamin B12 Folate TSH Free T4 Ethyl Alcohol Lymphocyte Subset Cmmnt Pending Pending Total Lymphocytes Pending Pending % CD3 Cells Pending Pending Absolute CD3 Count Pending Pending % CD4 Cells Pending Pending Absolute CD4 Count Pending Pending CD4/CD8 Ratio Pending Pending % CD8 Cells Pending Pending Absolute CD8 Count Pending Pending Lyme Screen IgG & IgM Lyme Progressive Test HIV-1 RNA copies/mL Pending HIV-1 RNA logcopies/mL Pending Toxoplasma IgG Ab Pending Toxoplasma IgM Ab Pending Toxoplasma Ab Interp Pending Imaging Diagnostic Imaging Impressions Head CT 01/10/24 16:39 IMPRESSION: 1. No evidence of acute intracranial hemorrhage or edematous territorial infarction. 2. Region of chronic encephalomalacia involving the periventricular white matter of the anterior left frontal lobe and left caudate head. Electronically signed by: Gume Elkins DO 01/11/2024 05:53 PM [facility] DS: Summary Hospital Course Hospital Course: Patient is a 48-year-old female with history of unspecified mood disorder and PTSD who presented to [facility] ER via police on [address] due to aggressive behavior and paranoid delusions at home. Per crisis report, patient initially came to [facility] ER on 01/08/2024 after reported schizophrenic episode by her mother and was discharged with referrals to [facility]. Patient re-presented to [facility] ER on 01/09/24 from home on [address], escorted by police, due to cheondoism preoccupation. It was reported by family that patient needed to be held down physically due to agitation and aggression. When in ER, patient required chemical restraints and expressed paranoid delusions about not feeling safe and believes family may be poisoning her food. Patient's mother reported patient has recently started reading the Bible more frequently after receiving news that she has HIV. Patient reports she came to ER voluntarily to show her mother that she is fine. She reports she has been reading the Bible and talking to God and came to the ER voluntarily at her mother's request. Patient reports she was recently at [facility] due to chest pain after taking 6 Tylenol for pain. She denies this was a suicide attempt and denies any current suicidal or homicidal ideation. Patient denies AH/VH. Patient reports she lives with her mother and is her primary caregiver. Patient reports she would like to have outpatient therapy and prescriber referrals. Patient denies any prior mental health history or inpatient psychiatric admissions. She denies any history of alcohol or substance use. Utox negative. During admission assessment, patient presents alert and oriented x3. Calm and cooperative. Patient reports feeling anxious ; patient stated, I came to the hospital because I was very anxious. At night I was seeing people that were not actually there. It was scary. When I got to the hospital I was seeing people that wanted to kill me. That was the 1st time that is ever happened to me . Patient reports no hx of visual hallucinations. Patient reports taking Sertraline prescribed by her PCP but stopped taking it because she no longer felt depressed or anxious . Patient reports she has known that she has had HIV for a while since her son was 5 years old . Patient stated, I didn't just find out. I had to go through a lot of therapy and I had to take medication for it . Patient reports that she considers herself cheondoism and states that she always reads the Bible. Patient stated, I have been serving the [employer] for 9 years . Patient denies any substance use. Utox negative. Patient reports she is willing to take psychiatric medications; risks/benefits reviewed. Patient reports she would like referrals to outpatient psychiatric providers. Plan: 12B 15 minute safety checks Start: Risperdal 0.5mg PO BID Consult to Infectious Disease; ? HIV encephalopathy CT scan of head Labs ordered; B12/folate, TSH, CBC, Lyme screen, UA Obtain collateral MOCA obtained from OT; patient scored 13/30 indicating moderate cognitive impairment. Referral to outpatient psychiatric providers Discharge planning Met with pt, pt's mother and dialysis social worker, Kelsi. Patient reports feeling fine today; pt requesting to be discharged home. Pt stated, I promise I will follow up with my outpatient doctors. I just don't want to be in the hospital . Pt's mother reports pt does not have hx of mental illness/aggression/autism spectrum d/o. Patient's mother encouraged pt to stay in the hospital for work up; pt agreed. She is medication compliant. Awaiting results from CT and labs. 12b up tomorrow. pt denies SI/HI/VH/AH. Showered. Patient was seen by infection disease, which started patient on Biktarvy. CT Scan obtained; please see results T/W, pt, pt's mother and dialysis social worker, Kelsi, met in unit office. Patient and mother requesting pt to be discharged on 12B. Patient stated, I feel fine. I promise I will follow up with my outpatient doctor about the labs and scan. They are really good with everything . Patient's mother stated she plans on making sure her daughter follows up with her PCP . Patient denies SI/HI/VH/AH. Discharged on 12b home with her mother. T/W contacted [facility] to speak with patients PCP regarding hospitalization; awaiting call back. Time spent discussing smoking cessation with patient: 3 to 10 minutes Status at Discharge Cognitive/behavioral status at discharge: Patient was interviewed prior to discharge and found to be fully oriented and without SI or HI. Patient has insight and demonstrates good judgment in terms of wanting to pursue treatment. Patient has a safety plan that includes presenting to the closest ER or calling 911 if feeling unsafe. Functional status at discharge: independent ambulation Overall status at discharge: patient is back to baseline Time Spent with Patient Time attestation: Total time managing care of this patient today _30___ minutes. Time spent: Less than 30 minutes Discharge Plan Discharge Anticipated Discharge Date/Time: 01/12/24 10:27 Patient Disposition: Home, Self-Care Discharge Diagnosis: Mood d/o, PTSD Referrals: [facility] (Central Intake) [Other] - 1 Week (Follow up with [facility] you have been referred and need to follow up for an appointment.) Monica Leo MD [Primary Care Provider] - 01/30/24 9:15 am (Your follow up appt has been scheduled for 01-30-24 @ 9:15am with Dr Eliza Maradiaga at [facility] (fax tn [phone]) ) Discharge Medications: New Biktarvy 50-200-25 mg Tablet 1 tab PO DAILY 30 Days Qty: 30 0RF olanzapine 5 mg Tablet 5 mg PO DAILY PRN (Reason: agitation) 30 Days Qty: 30 0RF Discharge Orders: Discharge Order (Routine); Ordered 01/12/24 Ordered By: Anju Smyth Diet: Regular diet Activity on Discharge: As tolerated Stand Alone Forms: Patient Portal Discharge page, Community Support Print Language: Malagasy Care Plan Goals: Maintain mood and safe behaviors Take medications as prescribed Practice coping skills Continue with outpatient providers and reach out to them as needed Health Concerns: Mood stability and behaviors Follow up with PCP regarding HIV/ CT scan and labs. Follow up with psychiatric providers. Plan of Treatment: Follow up with your PCP, psychiatric provider and other outpatient providers regarding above concerns Take medications as prescribed Assessment: Patient was interviewed prior to discharge and found to be fully oriented and without SI or HI. Patient has insight and demonstrates good judgment in terms of wanting to pursue treatment. Patient has a safety plan that includes presenting to the closest ER or calling 911 if feeling unsafe. Discharge Date/Time: 01/12/24 10:55
[2024-01-13 06:24] LABS: Toxoplasma IgG Antibody <7.20 IU/mL; Toxoplasma IgM Antibody <8.00 AU/mL
[2024-01-15 19:58] LABS: HIV RNA PCR Qn Copies 8700 copies/mL (NOT DETECTED); HIV RNA PCR Qn Log Copies 3.94 (NOT DETECTED)
[2024-01-17 00:08] LABS: Absolute CD3 Count 1130 cells/uL (840-3060); Absolute CD4 Count 336 cells/uL (490-1740); Absolute CD8 Count 823 cells/uL (180-1170); Absolute Lymphocytes 1233 cells/uL (850-3900); CD4 CD8 Ratio 0.41 (0.86-5.00); Percent CD3 Cells 92 % (57-85); Percent CD4 Cells 27 % (30-61); Percent CD8 Cells 67 % (12-42)
[2024-01-17 00:08] LABS: Absolute CD3 Count 903 cells/uL (840-3060); Absolute CD4 Count 275 cells/uL (490-1740); Absolute CD8 Count 638 cells/uL (180-1170); Absolute Lymphocytes 973 cells/uL (850-3900); CD4 CD8 Ratio 0.43 (0.86-5.00); Percent CD3 Cells 93 % (57-85); Percent CD4 Cells 28 % (30-61); Percent CD8 Cells 66 % (12-42)
== END 2024-01-12 10:55 | disposition home or self-care (01) | DRG 753 ==
LOC: HO.ED 07:40 → HO.PADLT16 16:41
PROVIDERS: Internal Medicine; Admitting Provider Registered Nurse; Emergency Provider Emergency Medicine; PCP Internal Medicine; Visit Provider Psychiatry & Neurology Psychiatry
DX: F39 Unspecified mood [affective] disorder (principal); F43.10 Post-traumatic stress disorder, unspecified; Z21 Asymptomatic human immunodeficiency virus [HIV] infection status; Z79.899 Other long term (current) drug therapy
CPT/HCPCS: 36415; 70450; 80048; 80053; 80061; 80307; 82607; 82746; 82947; 84439; 84443; 85025; 86359; 86360; 86617; 86618; 86777; 86778; 87536; 99285; J1200; J1630; J2060; S9485

== ENCOUNTER → 2024-01-09 16:27 | Outpatient (BNV) | payer MEDICAID, SELFPAY | PROVIDERS: Admitting Provider Registered Nurse; Emergency Provider Emergency Medicine; PCP Internal Medicine; Visit Provider Internal Medicine | DX: F43.10 Post-traumatic stress disorder, unspecified (principal); F39 Unspecified mood [affective] disorder; B20 Human immunodeficiency virus [HIV] disease | CPT/HCPCS: 99222 ==

== ENCOUNTER → 2024-01-09 16:27 | Outpatient (BNV) | payer OTHER, SELFPAY | PROVIDERS: Admitting Provider Registered Nurse; Emergency Provider Emergency Medicine; PCP Internal Medicine; Visit Provider Registered Nurse | DX: F39 Unspecified mood [affective] disorder (principal); F43.11 Post-traumatic stress disorder, acute; B20 Human immunodeficiency virus [HIV] disease | CPT/HCPCS: 99232; 99233 ==

== ENCOUNTER 2024-01-24 01:58 | Inpatient (IN) | payer MEDICAID, OTHER, SELFPAY ==
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
--- NOTE | ~2024-01-24 | XR_ITS ---
EXAMINATION: XR ABDOMEN KUB CLINICAL INFORMATION: Constipation. COMPARISON: Most recent CT abdomen/pelvis dated 08/11/2021. TECHNIQUE: AP views of the abdomen. FINDINGS: Mild air and stool throughout the bowel. Nonobstructive bowel gas pattern. No abnormal soft tissue calcification. No acute osseous abnormality. XR/XR KUB IMPRESSION: Mild air and stool throughout the bowel. Nonobstructive bowel gas pattern. Electronically signed by: Boby Boss MD 02/01/2024 08:23 AM [facility]
--- NOTE | ~2024-01-24 | XR_ITS ---
EXAMINATION: Pre-MRI FOREIGN BODY SCREENING CLINICAL INFORMATION: Pre-MRI screening. COMPARISON: None. TECHNIQUE: 2 views of the orbits were obtained. AP chest. AP abdomen. FINDINGS: No metallic foreign bodies. Lungs appear clear. Nonobstructive bowel gas pattern. XR/XR pre mri screening IMPRESSION: No metallic foreign body identified. Electronically signed by: Thomas Wang MD 01/26/2024 05:10 PM EST
[2024-01-24 02:09] VITALS: BP 145/70; PULSE 65; PULSE 81; RESP 16; TEMP 37; O2SAT 100; BMI 52.9
[2024-01-24 02:34] LABS: MANUAL DIFF FLAG NO
[2024-01-24 02:38] LABS: Appearance Urine Cloudy; Color Urine Dark Yellow; Glucose Urine UA Negative (Negative); Leukocyte Esterase Urine Negative (Negative); Nitrite Urine Negative (Negative); PH 5.5 (5.0-9.0); Specific Gravity - Urine >= 1.030 (1.005-1.025); UMIC TRIGGER UACC YES; Urine Blood Negative (Negative); Urine Ketones 15 mg/dL (Negative); Urine Protein 30 (1+) mg/dL (Neg-Trace)
[2024-01-24 02:39] LABS: UPreg QC Valid YES; Urine Pregnancy NEGATIVE (NEGATIVE)
[2024-01-24 02:40] LABS: Basophils Percent Auto 0.7 % (0-2); Eosinophils Absolute Auto 0.1 X10*3/uL (0.0-0.4); Hematocrit 41.7 % (37.0-47.0); Hemoglobin 13.5 g/dl (12.0-16.0); Imm Gran Abs Auto 0.03 X10*3/uL (0.00-0.03); Imm Gran Pct Auto 0.7 % (0.0-0.4); Lymphocytes Absolute Auto 1.4 X10*3/uL (1.2-4.9); Lymphocytes Percent Auto 30.4 % (20-40); Mean Corpuscular HGB Conc 32.4 g/dl (31.0-35.0); Mean Corpuscular Hemoglobin 27.7 pg (27.0-33.0); Mean Corpuscular Volume 85.5 fL (80.0-98.0); Mean Platelet Volume 12.6 fL (9.4-12.3); Monocytes Absolute Auto 0.4 X10*3/uL (0.1-1.2); Monocytes Percent Auto 9.5 % (2-11); Neutrophils Absolute Auto 2.6 x10*3/uL (2.0-8.3); Neutrophils Percent Auto 56.7 % (45-73); Platelet Count 89 X10*3/uL (160-400); Red Blood Count 4.88 X10*6/uL (4.20-5.50); Red Cell Distribution Width 13.9 % (11.0-16.0); White Blood Count 4.5 X10*3/uL (4.8-10.8)
[2024-01-24 02:45] LABS: Bacteria Urine Trace (None Seen); RBC Urine 0-2 /HPF (0-2); WBC Urine 0-5 /HPF (0-5)
[2024-01-24 02:53] LABS: Amphetamine Screen Urine Not Detected (Not Detect); Barbiturates, Urine Not Detected (Not Detect); Benzodiazepines Screen Urine Not Detected (Not Detect); Buprenorphine Scr Not Detected (Not Detect); Cannabinoid Screen Urine Not Detected (Not Detect); Cocaine Screen Urine Not Detected (Not Detect); Fentanyl, urine Not Detected (Not Detect); Methadone Screen, Urine Not Detected (Not Detect); Opiate Screen Urine Not Detected (Not Detect); Oxycodone Screen Urine Not Detected (Not Detect); Phencyclidine Screen Urine Not Detected (Not Detect)
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
[2024-01-24 02:57] LABS: Alanine Aminotransferase 14 U/L (0-31); Albumin Level 3.8 g/dL (3.5-5.0); Anion Gap 20 (12-20); Aspartate Amino Transferase 27 U/L (5-31); Calcium 10.1 mg/dL (8.4-10.2); Carbon Dioxide 15 mmol/L (22-29); Chloride 110 mmol/L (96-108); Glucose Random 65 mg/dL (60-115); Potassium 4.2 mmol/L (3.3-5.1); Sodium 141 mmol/L (135-145); Total Protein 8.6 g/dL (6.5-8.0)
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
--- NOTE | 2024-01-24 08:41 | PC.NURSE ---
patient appears to be sleeping, resp even and unlabored. no signs of distress
--- NOTE | 2024-01-24 12:28 | PC.NURSE ---
Pt laying on couch in 7, offering no complaints to this RN at this time, respirations even and unlabored, no apparent distress noted
[2024-01-24 12:32] VITALS: BP 140/67; PULSE 65; RESP 15; TEMP 36.9; O2SAT 99
--- NOTE | 2024-01-24 13:05 | MHC.CARE ---
Pt will be a Older Adult bedsaerch
--- NOTE | 2024-01-24 13:43 | PM.PSYCN ---
History of Present Illness Date of Service: 01/25/2024 Chief Complaint: Delusions Sources of Information: patient interviewed, chart reviewed and crisis/core team assessment reviewed HPI Narrative: Ms. No is a 48 year-old woman who was brought by police after she was found wondering in an old apartment building. Pt reported she was looking for her fiance, Pedro with who she reports she communicates telepathically. She also believes that he is here in the hospital waiting for her (we looked in the waiting area and there was no one there). She reports she also at times hears voices of God and Thomas, but it seems that she hears voices of male who she reports is romantically involved with her despite her not having seen him nor talked to him over the phone but telepathically. Pt was recently on M3 due to rastafarian delusions. During that admission, pt also had MOCA due to concerns in terms of memory and cogintive decline which she scored 13/30. She had head CT which showed left side frontal atrophy and microvascular changes. It appears that she does not have prior hx of psychosis or delusions. She does have a hx f HIV. She reports she has not been sleeping, does not feel tired. She denies SI/HI. She reports she needs to go to continue looking for Pedro. Past Psychiatric History: Inpt: M3 01/2024 She does not have outpatient psychiatric providers. Denies history of SA. Denies SIB. Medical Evaluation Reviewed: Yes [facility] Medical History Asthenia HIV (human immunodeficiency virus infection) Bilateral primary osteoarthritis of knee Family History: Unknown Social History: Lives with mother and sometimes with brother. but . One adult son. SSI. Completed 11th grade. Trauma History: Yes Diagnostics Vital Signs (24Hr): Vital Signs - 24 hr 01/24/24 02:09 01/24/24 12:32 Temperature 98.6 F 98.5 F Pulse Rate 65 65 Respiratory Rate 16 15 Blood Pressure 145/70 H 140/67 H Pulse Oximetry 100 99 Oxygen Delivery Method Room Air Room Air BMI result Body Mass Index 52.9 Labs 01/24/24 02:30 01/24/24 02:30 Labs: Laboratory Results - last 48 hr 01/24/24 02:30 WBC 4.5 L RBC 4.88 Hgb 13.5 Hct 41.7 MCV 85.5 MCH 27.7 MCHC 32.4 RDW 13.9 Plt Count 89 L MPV 12.6 H Immature Gran % (Auto) 0.7 H Neut % (Auto) 56.7 Lymph % (Auto) 30.4 [place] % (Auto) 9.5 Eos % (Auto) 2.0 Baso % (Auto) 0.7 Lymph # (Auto) 1.4 [place] # (Auto) 0.4 Eos # (Auto) 0.1 Baso # (Auto) 0.0 Abs Immat Gran (auto) 0.03 Absolute Neuts (auto) 2.6 Absolute Nucleated RBC 0.000 Nucleated RBC % (auto) 0.0 Sodium 141 Potassium 4.2 Chloride 110 H Carbon Dioxide 15 L Anion Gap 20 BUN TNP Creatinine TNP Estim Creat Clear Calc TNP Estimated GFR TNP Random Glucose 65 Calcium 10.1 D Total Bilirubin TNP AST 27 ALT 14 Alkaline Phosphatase TNP Total Protein 8.6 H Albumin 3.8 Urine Color Dark Yellow Urine Appearance Cloudy Urine pH 5.5 Ur Specific [place] >= 1.030 H Urine Protein 30 (1+) H Urine Glucose (UA) Negative Urine Ketones 15 Urine Blood Negative Urine Nitrite Negative Ur Leukocyte Esterase Negative Urine RBC 0-2 Urine WBC 0-5 Ur Squamous Epith Cells 11-20 Urine Bacteria Trace Hyaline Casts 6-10 Urine Test NEGATIVE Urine Opiates Screen Not Detected Ur Buprenorphine Scrn Not Detected Ur Oxycodone Screen Not Detected Urine Methadone Screen Not Detected Urine Fentanyl Screen Not Detected Ur Barbiturates Screen Not Detected Ur Phencyclidine Scrn Not Detected Ur Amphetamines Screen Not Detected U Benzodiazepines Scrn Not Detected Urine Cocaine Screen Not Detected U Marijuana (THC) Screen Not Detected Ethyl Alcohol TNP Mental Status Exam Mental Status Exam Narrative: Appearance: wearing hospital gown, fair hygiene, in NAD Behavior: cooperative Psychomotor: no agitation or retardation noted Speech: clear, normal rate/rhythm/volume, spontaneus TP: goal oriented- finding Pedro TC: wanting to find Pedro Mood: good Affect: somewhat expansive SI: denies HI: denies VH/AH: internally preoccupied, hearing voices of male who she believes is her fiance Delusions: combination of erotomanic delusions and rastafarian delusions Insight/judgment: impaired x 2. memory/cog: alert, not oriented to situation. Medications Allergies Allergies Allergy/AdvReac Type Severity Reaction Status Date / Time IV contrast Allergy Unknown Anaphylaxis Uncoded 01/24/24 02:29 pollen Allergy Unknown unknown Uncoded 01/24/24 02:29 Assessment & Plan Assessment & Plan (1) Neetu: Status: Acute Code(s): F30.9 - Manic episode, unspecified Plan Ms. No is presenting with symptoms consistent with neetu, including decreased need for sleep, erotomanic delusions along with rastafarian delusions. It does appear these symptoms are new. Differential dx include- r/o immune related conditions that can present with manic like symptoms such as MS, specific lesions to the brain (this would be more related to right sided frontal side injuries than left one which is what she has), or small percentage of women who develop new onset manic symptoms during perimenopause as they lose estrogens. She also presents with significant cognitive impairments- which unclear if mostly related to left sided atrophy (will have to check pattern of cognitive impairment). PLAN 1. inpt level of care for stabilization, safety and containment. 2. start risperidone 2mg po BID. may need mood stabilizer for rastafarian/ertmanic delusions 3. check NITISH, may do MRI with neurquant. RPR, lyme, B12 completed during last admission unremarkable. Total time managing care of this patient today ____ minutes.
[2024-01-24] MEDS: Bictegrav/Emtricit/Tenofov Ala TABLET 1 TAB PO (14:46)
[2024-01-24] MEDS: risperiDONE 2 MG TABLET PO ×2 (14:46→20:03)
[2024-01-24 20:06] VITALS: BP 136/72; PULSE 67; RESP 18; TEMP 36.8; O2SAT 100
--- NOTE | 2024-01-24 20:54 | PHA.MEDREC ---
Pharmacy Consult ? Medication Reconciliation Pharmacy has completed the medication reconciliation. Utilized discharge packet from 01/11 to confirm med rec done by nursing completed.
--- NOTE | 2024-01-25 | ECG_ITS ---
Test Reason : check qt interval Blood Pressure : / mmHG Vent. Rate : 062 BPM Atrial Rate : 062 BPM P-R Int : 152 ms QRS Dur : 092 ms QT Int : 422 ms P-R-T Axes : 024 022 013 degrees QTc Int : 428 ms Normal sinus rhythm Minimal voltage criteria for LVH, may be normal variant ( Wolf product ) Borderline ECG When compared with ECG of 06-JAN-2024 18:34, No significant change was found Referred By: Taylor Remy Electronically Signed By:LATRICIA RUANO MD
[2024-01-25 06:37] VITALS: BP 124/63; PULSE 71; RESP 17; TEMP 37.2; O2SAT 99
--- NOTE | 2024-01-25 06:42 | PC.NURSE ---
Patient had uneventful night, she slept throughout the night, offers no complaints, VSS.
--- NOTE | 2024-01-25 07:46 | PC.NURSE ---
Assumed care of patient at 0645, patient appears to be sleeping, respirations even and unlabored. Continue plan of care for inpatient bedsearch
[2024-01-25] MEDS: Bictegrav/Emtricit/Tenofov Ala TABLET 1 TAB PO (09:02)
[2024-01-25] MEDS: risperiDONE 2 MG TABLET PO ×2 (09:02→21:00)
--- NOTE | 2024-01-25 11:30 | PC.NURSE ---
pt visualized self-dialoguing on the couch in 7
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
--- NOTE | 2024-01-25 17:40 | PC.NURSE ---
Pt arrived to unit from ED at 1511 via wheelchair with security present. Pt medical history of PTSD, HIV+, mood disorder, cognitive deficit. Pt not taking medications. Pt alert and oriented to person, place and year, unclear regarding situation. The patient ambulating independently, reports pain to right knee (chronic). Related Data
[2024-01-25 20:00] VITALS: BP 118/75; PULSE 78; RESP 18; TEMP 36.3; O2SAT 100
[2024-01-26 08:00] VITALS: BP 117/60; PULSE 75; RESP 18; TEMP 36.1; O2SAT 99
[2024-01-26] MEDS: risperiDONE 2 MG TABLET PO ×2 (08:39→21:18)
[2024-01-26] MEDS: Bictegrav/Emtricit/Tenofov Ala TABLET 1 TAB PO (08:40)
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
[2024-01-26 09:18] LABS: Estimated Average Glucose 105 mg/dL; Hemoglobin A1C 108.7481 umol/L; Hemoglobin A1c % 5.3 % (<6.0); Total Hemoglobin (HGBA1C) 3208.0279 umol/L
[2024-01-26 09:28] LABS: Alanine Aminotransferase 15 U/L (0-31); Albumin Level 3.7 g/dL (3.5-5.0); Alkaline Phosphatase 48 U/L (39-117); Anion Gap 9 (12-20); Aspartate Amino Transferase 22 U/L (5-31); Bilirubin Total 0.4 mg/dL (0.0-1.0); Blood Urea Nitrogen 17 mg/dL (9-16); Calcium 9.7 mg/dL (8.4-10.2); Carbon Dioxide 27 mmol/L (22-29); Chloride 106 mmol/L (96-108); Cholesterol 160 mg/dL (<200); Creatinine Clr Calc Pharmacy 112.3; Estimated Glomerular Filt Rate > 60; Glucose Fasting 119 mg/dL (60-99); HDL Cholesterol 45 mg/dL (>40); LDL Cholesterol Calculated 102 mg/dL (<100); Potassium 3.8 mmol/L (3.3-5.1); Sodium 138 mmol/L (135-145); Total Protein 8.3 g/dL (6.5-8.0); Triglycerides 68 mg/dL (<150)
[2024-01-26 09:40] LABS: Thyroid Stimulating Hormone 3.43 uIU/mL (0.32-4.0)
[2024-01-26 09:56] LABS: Vitamin B12 488 pg/mL (200-900)
[2024-01-26 20:00] VITALS: BP 145/69; PULSE 75; RESP 18; TEMP 36.1; O2SAT 100
[2024-01-27 07:55] VITALS: BP 118/62; PULSE 62; RESP 18; TEMP 36.8; O2SAT 99
[2024-01-27] MEDS: Bictegrav/Emtricit/Tenofov Ala TABLET 1 TAB PO (08:26)
[2024-01-27] MEDS: risperiDONE 2 MG TABLET PO ×2 (08:26→20:34)
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
[2024-01-27] MEDS: hydrOXYzine HCL 25 MG TABLET PO (14:27)
[2024-01-27] MEDS: Divalproex Sodium ER 500 MG TAB.ER.24H PO (14:27)
[2024-01-27 20:00] VITALS: BP 148/69; PULSE 87; RESP 18; TEMP 36; O2SAT 99
[2024-01-28 08:00] VITALS: BP 125/59; PULSE 76; RESP 20; TEMP 36.2; O2SAT 100
[2024-01-28] MEDS: Bictegrav/Emtricit/Tenofov Ala TABLET 1 TAB PO (09:07)
[2024-01-28] MEDS: risperiDONE 2 MG TABLET PO ×2 (09:08→20:33)
--- NOTE | 2024-01-28 17:33 | PC.NURSE ---
Patient spent most of the day in common area but not socializing with other clients. Refused depakote stating this pill is too big to take before the test for my belly patient unable to explain what test she was referring to and there was no test ordered at this time. Provider made aware patient has been refusing depakote. Patient reported incontinence, which she claims is new and it worries her. Later in the day patient was again approached about taking depakote and refused again, but this time explained that she is requesting abdominal US to diagnose her incontinence.
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
[2024-01-28 20:00] VITALS: BP 147/67; PULSE 73; RESP 16; TEMP 36.4; O2SAT 99
[2024-01-29 08:00] VITALS: BP 114/63; PULSE 88; RESP 16; TEMP 36.3; O2SAT 96
[2024-01-29 08:44] LABS: Appearance Urine Clear; Color Urine Yellow; Glucose Urine UA Negative (Negative); Leukocyte Esterase Urine Negative (Negative); Nitrite Urine Negative (Negative); PH 5.5 (5.0-9.0); Specific Gravity - Urine 1.025 (1.005-1.025); Urine Blood Negative (Negative); Urine Ketones Negative (Negative); Urine Protein Negative (Neg-Trace)
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
--- NOTE | 2024-01-29 18:09 | PC.NURSE ---
Monica No declined all scheduled medications, Bereket MONREAL, notified.
[2024-01-29 20:00] VITALS: BP 142/85; PULSE 68; RESP 18; TEMP 36.1; O2SAT 100
[2024-01-30] MEDS: hydrOXYzine HCL 25 MG TABLET PO (01:32)
[2024-01-30 08:00] VITALS: BP 107/66; PULSE 66; RESP 18; TEMP 36.2; O2SAT 96
[2024-01-30] MEDS: Bictegrav/Emtricit/Tenofov Ala TABLET 1 TAB PO (09:18)
[2024-01-30 13:59] LABS: Anti Nuclear Antibody Screen NEGATIVE (NEGATIVE)
[2024-01-30] MEDS: HaloperidoL 5 MG TABLET PO ×2 (15:35→20:30)
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
[2024-01-30 20:00] VITALS: BP 138/89; PULSE 71; RESP 16; TEMP 36.2; O2SAT 100
[2024-01-31 08:00] VITALS: BP 109/57; PULSE 61; RESP 16; TEMP 36.8; O2SAT 95
[2024-01-31] MEDS: Bictegrav/Emtricit/Tenofov Ala TABLET 1 TAB PO (08:03)
[2024-01-31 08:44] LABS: Alanine Aminotransferase 10 U/L (0-31); Albumin Level 3.1 g/dL (3.5-5.0); Alkaline Phosphatase 50 U/L (39-117); Anion Gap 8 (12-20); Aspartate Amino Transferase 20 U/L (5-31); Bilirubin Total 0.2 mg/dL (0.0-1.0); Blood Urea Nitrogen 18 mg/dL (9-16); Calcium 8.7 mg/dL (8.4-10.2); Carbon Dioxide 26 mmol/L (22-29); Chloride 108 mmol/L (96-108); Creatinine Clr Calc Pharmacy 112.3; Estimated Glomerular Filt Rate > 60; Glucose Random 83 mg/dL (60-115); Potassium 4.3 mmol/L (3.3-5.1); Sodium 138 mmol/L (135-145); Total Protein 7.2 g/dL (6.5-8.0)
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
[2024-01-31 20:00] VITALS: BP 117/59; PULSE 65; RESP 17; TEMP 36; O2SAT 97
[2024-01-31] MEDS: HaloperidoL 5 MG TABLET PO (20:41)
[2024-02-01 07:00] VITALS: BMI 49.1
[2024-02-01 10:17] VITALS: BP 117/87; PULSE 83; RESP 16; TEMP 36.5; O2SAT 97
[2024-02-01] MEDS: Bictegrav/Emtricit/Tenofov Ala TABLET 1 TAB PO (10:20)
[2024-02-01] MEDS: HaloperidoL 5 MG TABLET PO ×2 (10:20→21:12)
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
[2024-02-01 20:00] VITALS: BP 141/82; PULSE 68; RESP 16; TEMP 36.6; O2SAT 99
[2024-02-02 08:20] VITALS: BP 141/82; PULSE 68; RESP 17; TEMP 36.6; O2SAT 99
[2024-02-02] MEDS: HaloperidoL 5 MG TABLET PO ×2 (12:31→20:46)
[2024-02-02] MEDS: Bictegrav/Emtricit/Tenofov Ala TABLET 1 TAB PO (12:31)
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
[2024-02-02] MEDS: Ammonium Lactate 12 % Cream 140 GM TUBE 1 APPL TOPICAL (16:00)
[2024-02-02 20:00] VITALS: BP 115/58; PULSE 67; TEMP 36.8; O2SAT 96
[2024-02-03 08:00] VITALS: BP 121/57; PULSE 74; RESP 15; TEMP 36.6; O2SAT 97
[2024-02-03] MEDS: Bictegrav/Emtricit/Tenofov Ala TABLET 1 TAB PO (09:07)
[2024-02-03] MEDS: HaloperidoL 5 MG TABLET PO ×2 (09:07→21:07)
[2024-02-03 20:00] VITALS: BP 144/71; PULSE 67; TEMP 36.3; O2SAT 97
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
[2024-02-04 09:32] VITALS: BP 122/63; PULSE 65; RESP 16; TEMP 36.6; O2SAT 97
[2024-02-04] MEDS: HaloperidoL 5 MG TABLET PO ×2 (09:35→20:42)
[2024-02-04] MEDS: Bictegrav/Emtricit/Tenofov Ala TABLET 1 TAB PO (09:35)
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
[2024-02-04 20:00] VITALS: BP 117/59; PULSE 66; RESP 16; TEMP 36.4; O2SAT 99
[2024-02-05] MEDS: Bictegrav/Emtricit/Tenofov Ala TABLET 1 TAB PO (08:25)
[2024-02-05] MEDS: HaloperidoL 5 MG TABLET PO ×2 (08:25→20:51)
[2024-02-05 08:26] VITALS: BP 129/65; PULSE 67; RESP 18; TEMP 36.5; O2SAT 98
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
[2024-02-05] MEDS: Ammonium Lactate 12 % Cream 140 GM TUBE 1 APPL TOPICAL (12:05)
[2024-02-05 20:00] VITALS: BP 142/67; PULSE 68; RESP 18; TEMP 36.2; O2SAT 99
[2024-02-06 09:15] VITALS: BP 119/62; PULSE 66; RESP 17; TEMP 36.1; O2SAT 97
[2024-02-06] MEDS: Bictegrav/Emtricit/Tenofov Ala TABLET 1 TAB PO (09:16)
[2024-02-06] MEDS: HaloperidoL 5 MG TABLET PO (09:17)
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
== END 2024-02-06 14:00 | disposition home or self-care (01) | DRG 753 ==
LOC: HO.ED 23:49 → HO.PGERI 01-25 14:33
PROVIDERS: Psychiatry & Neurology Psychiatry; Admitting Provider Social Worker; Emergency Provider Internal Medicine; PCP Internal Medicine; Visit Provider Social Worker
DX: F31.2 Bipolar disorder, current episode manic severe with psychotic features (principal); B20 Human immunodeficiency virus [HIV] disease; F43.10 Post-traumatic stress disorder, unspecified; Z87.891 Personal history of nicotine dependence; Z79.899 Other long term (current) drug therapy
CPT/HCPCS: 36415; 70551; 74018; 76377; 80053; 80061; 80307; 81001; 81003; 81025; 82607; 82746; 83036; 84443; 85025; 86038; 93005; 99285; S9485

== ENCOUNTER → 2024-01-24 14:28 | Outpatient (BNV) | payer OTHER, SELFPAY | PROVIDERS: Admitting Provider Social Worker; Emergency Provider Internal Medicine; PCP Internal Medicine; Visit Provider Social Worker | DX: F30.9 Manic episode, unspecified (principal) | CPT/HCPCS: 99231; 99232; 99233 ==

== ENCOUNTER → 2024-01-25 09:16 | Outpatient (BNV) | payer MEDICAID, SELFPAY | PROVIDERS: Emergency Provider Internal Medicine; PCP Internal Medicine; Visit Provider Internal Medicine Cardiovascular Disease | DX: R94.31 Abnormal electrocardiogram [ECG] [EKG] (principal) | CPT/HCPCS: 93010 ==

== ENCOUNTER → 2024-01-25 14:28 | Outpatient (BNV) | payer OTHER, SELFPAY | PROVIDERS: Admitting Provider Social Worker; Emergency Provider Internal Medicine; PCP Internal Medicine; Visit Provider Psychiatry & Neurology Psychiatry | DX: F31.2 Bipolar disorder, current episode manic severe with psychotic features (principal); F43.11 Post-traumatic stress disorder, acute; B20 Human immunodeficiency virus [HIV] disease; R41.89 Other symptoms and signs involving cognitive functions and awareness | CPT/HCPCS: 99231; 99232 ==

== ENCOUNTER 2024-03-19 12:17 | Outpatient (REF) | payer OTHER, SELFPAY ==
[2024-03-19 13:15] LABS: MANUAL DIFF FLAG NO
[2024-03-19 13:18] LABS: Basophils Percent Auto 0.9 % (0-2); Eosinophils Absolute Auto 0.1 X10*3/uL (0.0-0.4); Eosinophils Percent Auto 1.5 % (0-4); Hematocrit 42.2 % (37.0-47.0); Hemoglobin 13.6 g/dl (12.0-16.0); Imm Gran Abs Auto 0.01 X10*3/uL (0.00-0.03); Imm Gran Pct Auto 0.3 % (0.0-0.4); Lymphocytes Absolute Auto 1.2 X10*3/uL (1.2-4.9); Lymphocytes Percent Auto 34.1 % (20-40); Mean Corpuscular HGB Conc 32.2 g/dl (31.0-35.0); Mean Corpuscular Hemoglobin 28.3 pg (27.0-33.0); Mean Corpuscular Volume 87.7 fL (80.0-98.0); Mean Platelet Volume 11.3 fL (9.4-12.3); Monocytes Absolute Auto 0.3 X10*3/uL (0.1-1.2); Monocytes Percent Auto 9.3 % (2-11); Neutrophils Absolute Auto 1.9 x10*3/uL (2.0-8.3); Neutrophils Percent Auto 53.9 % (45-73); Platelet Count 183 X10*3/uL (160-400); Red Blood Count 4.81 X10*6/uL (4.20-5.50); Red Cell Distribution Width 15.3 % (11.0-16.0); White Blood Count 3.4 X10*3/uL (4.8-10.8)
[2024-03-19 13:48] LABS: Alanine Aminotransferase 9 U/L (0-31); Albumin Level 3.9 g/dL (3.5-5.0); Alkaline Phosphatase 57 U/L (39-117); Anion Gap 7 (12-20); Aspartate Amino Transferase 21 U/L (5-31); Bilirubin Total 0.4 mg/dL (0.0-1.0); Blood Urea Nitrogen 17 mg/dL (9-16); Calcium 9.2 mg/dL (8.4-10.2); Carbon Dioxide 27 mmol/L (22-29); Chloride 109 mmol/L (96-108); Cholesterol 179 mg/dL (<200); Estimated Glomerular Filt Rate > 60; Glucose Random 82 mg/dL (60-115); HDL Cholesterol 47 mg/dL (>40); LDL Cholesterol Calculated 107 mg/dL (<100); Potassium 4.5 mmol/L (3.3-5.1); Sodium 138 mmol/L (135-145); Total Protein 8.3 g/dL (6.5-8.0); Triglycerides 128 mg/dL (<150)
[2024-03-19 14:04] LABS: Reflex LDLD? No
[2024-03-19 14:09] LABS: ~HepC Num1 0.14 S/CO (0.00-0.79); ~Hepatitis C Antibody Nonreactive (Nonreactive)
[2024-03-20 18:03] LABS: HIV RNA PCR Qn Copies NOT DETECTED copies/mL (NOT DETECTED); HIV RNA PCR Qn Log Copies NOT DETECTED (NOT DETECTED)
[2024-03-21 12:08] LABS: RPR Rapid Plasma Reagin NON-REACTIVE (NON-REACTIVE)
[2024-03-23 15:13] LABS: Absolute CD3 Count 1026 cells/uL (840-3060); Absolute CD4 Count 317 cells/uL (490-1740); Absolute CD8 Count 712 cells/uL (180-1170); Absolute Lymphocytes 1139 cells/uL (850-3900); CD4 CD8 Ratio 0.44 (0.86-5.00); Percent CD3 Cells 90 % (57-85); Percent CD4 Cells 28 % (30-61); Percent CD8 Cells 63 % (12-42)
== END 2024-03-19 12:18 | disposition home or self-care (01) ==
LOC: HO.HHCL 12:17
PROVIDERS: Visit Provider Internal Medicine
DX: Z21 Asymptomatic human immunodeficiency virus [HIV] infection status (principal)
CPT/HCPCS: 36415; 80053; 80061; 85025; 86359; 86360; 86592; 86803; 87536

== ENCOUNTER → 2024-04-03 10:04 | Outpatient (BNVA) | payer MEDICAID, SELFPAY | PROVIDERS: PCP Internal Medicine; Visit Provider Physician Assistant Surgical ==

== ENCOUNTER 2024-04-18 10:55 | Outpatient (REF) | payer MEDICAID, SELFPAY | END 2024-04-18 10:56 | disposition home or self-care (01) | LOC: HO.MAMMO 10:55 | PROVIDERS: PCP Internal Medicine; Visit Provider Internal Medicine | DX: Z12.31 Encounter for screening mammogram for malignant neoplasm of breast (principal) | CPT/HCPCS: 77063; 77067 ==

== ENCOUNTER → 2024-04-18 11:15 | Outpatient (BNV) | payer MEDICAID, SELFPAY | PROVIDERS: PCP Internal Medicine; Visit Provider Internal Medicine | DX: Z12.31 Encounter for screening mammogram for malignant neoplasm of breast (principal) | CPT/HCPCS: 77063; 77067 ==

== ENCOUNTER 2024-05-02 10:01 | Outpatient (AMB) | payer MEDICAID, SELFPAY ==
--- NOTE | 2024-05-02 10:02 | A.OFFVIS_ITS ---
Vital Signs 05/02/24 10:08 Height 4 ft 11 in Weight 266 lb BMI 53.7 Intake Visit Reasons: OV - Bilateral Knee OA - Right > Left Intake Note: Monica is a 48 year old female who presents today for a follow up of her bilateral knee OA. Right>Left. Patient started a Euflexxa series in 2023, but she only received 1 of 3 injections. Patient reports that she has been loosing w eight. She wants to discuss surgery Allergies IV contrast Allergy (Unknown, Uncoded 01/24/24 02:29) Anaphylaxis pollen Allergy (Unknown, Uncoded 01/24/24 02:29) unknown HPI HPI OV - Bilateral Knee OA - Right > Left: Details: Monica is a 48 year old female who presents today for a follow up of her bilateral knee OA. Right>Left. Patient started a Euflexxa series in 2023, but she only received 1 of 3 injections. Patient reports that she has been loosing weight. She wants to discuss surgery . Her BMI is still over 50 but she has been losing weight. [facility] Medical History (Updated 02/14/24 @ 00:03 by Christofer Singleton) Asthenia HIV (human immunodeficiency virus infection) Bilateral primary osteoarthritis of knee Surgical History (Updated 04/03/24 @ 12:29 by Lucia Kent CMA) Hx of laparoscopic gastric banding Family History (Updated 04/03/24 @ 10:42 by Lucia Kent CMA) Mother No problems noted. Father No problems noted. Social History Household Members: Family Household Members Other:: Mother Housing: Apartment Do you presently have visiting nurse or other home services: Yes Alcohol intake: never Patient Tobacco Use Status: Former Tobacco user Tobacco use type: Cigarette e-Cigarette/Vaping Use: Never Used Second Hand Smoke Exposure: No service: No Current occupational status: disabled Current occupation: Right Handed Sexual orientation: Straight/Heterosexual Physical Exam Vital Signs: BMI result Body Mass Index 53.7 Const General: alert and awake Nutritional Appearance: obese Orientation/consciousness: patient oriented x3 HEENT Head: Yes normocephalic and Yes atraumatic Eyes EOM: EOMs intact bilaterally Resp Effort & Inspection: normal respiratory effort and able to speak in complete sentences Cardio Jugular venous distension: no JVD Skin General skin exam: turgor normal Rashes: no rashes Neuro General: patient oriented x3 Extrem Other: Bilateral Knees: gait antalgia medial compartement ttp Psych Appearance: grossly normal Affect: normal affect Attitude: cooperative Office Procedures Joint Inj/Aspir; Non-Pain Clin Joint Injection/Drain Details: Injected 1 mL of Decadron and 3 mL 1% lidocaine and 3 mL of 0.25% Marcaine. S ite was prepped using aseptic technique. Patient tolerated the procedure well. Shoulders, Hips, Knees, Knee Large Joint Injection : Right Knee Coding Procedure code (CPT) selection complete Assessment & Plan Assessment & Plan (1) Bilateral primary osteoarthritis of knee: Code(s): M17.0 - Bilateral primary osteoarthritis of knee Category: Medical Plan: I injected her right knee today. Her BMI is still in excess of what is acceptable especially given age. Would like to see her back in 6 months. Continue weight loss. (2) Obesity, morbid, BMI 50 or higher: Code(s): E66.01 - Morbid (severe) obesity due to excess calories Category: Medical Plan: Coding Level of Care Code Est Pt Level 3 (21110) Complex EM visit Add On G2211 Diagnoses Bilateral primary osteoarthritis of knee M17.0 Obesity, morbid, BMI 50 or higher E66.01 CPT Codes Shoulders, Hips, Knees, - Knee Large Joint Injection : Right Knee ([id number])
[2024-05-02 10:08] VITALS: BMI 53.7
== END 2024-05-02 10:15 | disposition home or self-care (01) ==
PROVIDERS: PCP Internal Medicine; Visit Provider Orthopaedic Surgery
DX: M17.0 Bilateral primary osteoarthritis of knee (principal); E66.01 Morbid (severe) obesity due to excess calories
CPT/HCPCS: 20610; 99213

== ENCOUNTER → 2024-05-02 10:01 | Outpatient (BNVA) | payer MEDICAID, SELFPAY | PROVIDERS: PCP Internal Medicine; Visit Provider Orthopaedic Surgery | DX: M17.0 Bilateral primary osteoarthritis of knee (principal); E66.01 Morbid (severe) obesity due to excess calories; Z68.43 Body mass index [BMI] 50.0-59.9, adult | CPT/HCPCS: 20610; 99212; J0665; J1100; J2003 ==

== ENCOUNTER 2024-05-09 17:50 | Outpatient (REF) | payer MEDICAID, SELFPAY | END 2024-05-09 17:51 | disposition home or self-care (01) | LOC: HO.HHCLNP 17:50 | PROVIDERS: Visit Provider Advanced Practice Midwife | DX: Z12.4 Encounter for screening for malignant neoplasm of cervix (principal) | CPT/HCPCS: 88112; 88175 ==

== ENCOUNTER 2024-05-10 08:05 | Outpatient (AMB) | payer MEDICAID, SELFPAY ==
--- NOTE | 2024-05-10 10:07 | A.OFFVIS_ITS ---
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 BMI 52.6 Allergies IV contrast Allergy (Unknown, Uncoded 05/10/24 10:07) Anaphylaxis pollen Allergy (Unknown, Uncoded 05/10/24 10:07) unknown Medication List - Last Reconciled 05/10/24 by Rory Abdalla MD albuterol sulfate 90 mcg/actuation 2 puffs inhalation Q6H PRN rmhzifidm-pshioyfb-mieckrl ala 50-200-25 mg (Biktarvy) 1 tab PO DAILY 30 days haloperidol 5 mg PO BID 30 days haloperidol 5 mg PO BID olanzapine 5 mg PO DAILY PRN 30 days HPI HPI 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 BMI 52.6: Details: Start time: 10.04aam, End time: 10.34am ?I spent 25 minutes speaking with the patient on the phone plus an additional 5 minutes reviewing and updating records for a total of 30 minutes HPI Comments Details: Previous weight loss efforts: Lap band but had to be removed Wakes up: 6am, Sleeps: 10pm Breakfast: 9am (bread) Lunch: 12pm (salad) Dinner: 6pm (rice, vegetables, meat) Snacks: 11am (apples, peaches) 3pm (tuna sandwich) Exercise: none Fluids: Coffee: (1 cup/day, with milk and sugar), tea: 2/wk (with honey), soda: Coke zero (1/week), juice: (orange juice), ETOH: none PFSH Medical History (Updated 05/10/24 @ 10:13 by Rory Abdalla MD) DJD (degenerative joint disease) Asthma Morbid obesity Asthenia HIV (human immunodeficiency virus infection) Bilateral primary osteoarthritis of knee Surgical History (Updated 04/03/24 @ 12:29 by Lucia Kent CMA) Hx of laparoscopic gastric banding Family History (Updated 04/03/24 @ 10:42 by Lucia Kent CMA) Mother No problems noted. Father No problems noted. Social History Household Members: Family Household Members Other:: Mother Housing: Apartment Do you presently have visiting nurse or other home services: Yes Alcohol intake: never Patient Tobacco Use Status: Former Tobacco user Tobacco use type: Cigarette e-Cigarette/Vaping Use: Never Used Second Hand Smoke Exposure: No service: No Current occupational status: disabled Current occupation: Right Handed Sexual orientation: Straight/Heterosexual Telehealth Telehealth Telehealth Platform: Telephone Location of provider rendering services: practice address Location of patient: address on file Patient Identification confirmed using: Name, : Yes Telehealth method: voice only Patient verbally consented to treatment: Yes Patient verbally consented to billing insurance company: Yes Patient informed of any privacy concerns related to visit: Yes Minutes spent on Phone/Video with Pt.: 30 Assessment & Plan Assessment & Plan (1) Morbid obesity: Code(s): E66.01 - Morbid (severe) obesity due to excess calories Category: Medical Plan: Patient is in need to lose substantial weight to undergo joint replacement surgery. She is not a candidate for bariatric surgery due to the history of lap band surgery and mental health history. For this same reason she is not a candidate for use of Phentermine. Once she purchases the body composition scale and an exercise stationary bike, I will prescribe the Zepbound. The patient is in agreement with this plan. Orders: Orders Complete Blood Count Auto Diff Today E66.01 - Morbid (severe) obesity due to excess calories IRON PROFILE Today E66.01 - Morbid (severe) obesity due to excess calories C Reactive Protein Today E66.01 - Morbid (severe) obesity due to excess calories Vitamin B1 Today E66.01 - Morbid (severe) obesity due to excess calories TSH reflex Free T4 Today E66.01 - Morbid (severe) obesity due to excess calories Ferritin Today E66.01 - Morbid (severe) obesity due to excess calories Insulin Today E66.01 - Morbid (severe) obesity due to excess calories Hemoglobin A1c Today E66.01 - Morbid (severe) obesity due to excess calories Lipid Panel Today E66.01 - Morbid (severe) obesity due to excess calories Comprehensive Met. Panel Today E66.01 - Morbid (severe) obesity due to excess calories Vitamin B12 and Folate Today E66.01 - Morbid (severe) obesity due to excess calories Zinc Today E66.01 - Morbid (severe) obesity due to excess calories Vitamin A Today E66.01 - Morbid (severe) obesity due to excess calories Vitamin D 25-OH Total Today E66.01 - Morbid (severe) obesity due to excess calories
[2024-05-10 10:26] VITALS: BMI 52.6
== END 2024-05-10 10:35 | disposition home or self-care (01) ==
LOC: HO.HBS 08:05
PROVIDERS: PCP Internal Medicine; Visit Provider Surgery
DX: E66.01 Morbid (severe) obesity due to excess calories (principal)
CPT/HCPCS: 99203

== ENCOUNTER 2024-11-18 08:12 | Outpatient (REF) | payer MEDICAID, SELFPAY ==
[2024-11-18 11:16] LABS: MANUAL DIFF FLAG NO
[2024-11-18 11:20] LABS: Hematocrit 43.5 % (37.0-47.0); Hemoglobin 14.3 g/dl (12.0-16.0); Imm Gran Abs Auto 0.01 X10*3/uL (0.00-0.03); Imm Gran Pct Auto 0.4 % (0.0-0.4); Lymphocytes Absolute Auto 1.3 X10*3/uL (1.2-4.9); Mean Corpuscular HGB Conc 32.9 g/dl (31.0-35.0); Mean Corpuscular Hemoglobin 29.9 pg (27.0-33.0); Mean Corpuscular Volume 90.8 fL (80.0-98.0); NRBC Abs Auto 0.000 X10*3/uL (0.0-0.012); NRBC Pct Auto 0.0 /100WBC (0.0-0.2); Platelet Count 208 X10*3/uL (160-400); Red Blood Count 4.79 X10*6/uL (4.20-5.50); White Blood Count 2.8 X10*3/uL (4.8-10.8)
[2024-11-18 11:22] LABS: Hematocrit 43.0 % (37.0-47.0); Hemoglobin 14.3 g/dl (12.0-16.0); Imm Gran Abs Auto 0.03 X10*3/uL (0.00-0.03); Imm Gran Pct Auto 1.1 % (0.0-0.4); Lymphocytes Absolute Auto 1.4 X10*3/uL (1.2-4.9); Mean Corpuscular HGB Conc 33.3 g/dl (31.0-35.0); Mean Corpuscular Hemoglobin 30.3 pg (27.0-33.0); Mean Corpuscular Volume 91.1 fL (80.0-98.0); NRBC Abs Auto 0.000 X10*3/uL (0.0-0.012); NRBC Pct Auto 0.0 /100WBC (0.0-0.2); Platelet Count 199 X10*3/uL (160-400); Red Blood Count 4.72 X10*6/uL (4.20-5.50); White Blood Count 2.8 X10*3/uL (4.8-10.8)
[2024-11-18 11:37] LABS: Hemoglobin A1C 140.9399 umol/L; Total Hemoglobin (HGBA1C) 3731.0520 umol/L
[2024-11-18 11:52] LABS: Alanine Aminotransferase 17 U/L (0-31); Albumin Level 4.4 g/dL (3.5-5.0); Alkaline Phosphatase 56 U/L (39-117); Anion Gap 14 (12-20); Aspartate Amino Transferase 24 U/L (5-31); Blood Urea Nitrogen 18 mg/dL (9-16); Calcium 9.4 mg/dL (8.4-10.2); Carbon Dioxide 25 mmol/L (22-29); Chloride 107 mmol/L (96-108); Estimated Glomerular Filt Rate > 60; Potassium 3.8 mmol/L (3.3-5.1); Sodium 142 mmol/L (135-145); Total Protein 8.3 g/dL (6.5-8.0)
[2024-11-18 12:09] LABS: Alanine Aminotransferase 18 U/L (0-31); Albumin Level 4.4 g/dL (3.5-5.0); Alkaline Phosphatase 56 U/L (39-117); Anion Gap 13 (12-20); Aspartate Amino Transferase 31 U/L (5-31); Blood Urea Nitrogen 18 mg/dL (9-16); Calcium 9.4 mg/dL (8.4-10.2); Carbon Dioxide 25 mmol/L (22-29); Chloride 107 mmol/L (96-108); Cholesterol 209 mg/dL (<200); Estimated Glomerular Filt Rate > 60; HDL Cholesterol 52 mg/dL (>40); Iron 85 mcg/dL (30-160); Percent Iron Saturation 34 % (15-50); Potassium 3.8 mmol/L (3.3-5.1); Sodium 141 mmol/L (135-145); Total Iron Binding Capacity 247 mcg/dL (228-428); Total Protein 8.2 g/dL (6.5-8.0); Triglycerides 105 mg/dL (<150); Unsaturated Iron Binding 162 ug/dL
[2024-11-18 12:16] LABS: Folate 11.6 ng/mL (> or = 4.0); Vitamin B12 334 pg/mL (200-900)
[2024-11-18 12:22] LABS: Ferritin 125 ng/mL (10-250)
[2024-11-20 16:23] LABS: HIV RNA PCR Qn Copies 48 copies/mL (NOT DETECTED); HIV RNA PCR Qn Log Copies 1.68 (NOT DETECTED)
[2024-11-21 04:44] LABS: TS Negative Control Passed; TS Panel A 0; TS Panel B 0; TS Positive Control Passed; TSpotTB Negative (Negative)
[2024-11-25 15:43] LABS: Absolute CD3 Count 1120 cells/uL (840-3060); Absolute CD8 Count 715 cells/uL (180-1170); Percent CD3 Cells 91 % (57-85); Percent CD8 Cells 58 % (12-42)
== END 2024-11-18 08:13 | disposition home or self-care (01) ==
LOC: HO.HHCL 08:12
PROVIDERS: Surgery; PCP Internal Medicine; Referring Provider Internal Medicine; Visit Provider Student in an Organized Health Care Education/Training Program
DX: Z11.1 Encounter for screening for respiratory tuberculosis (principal); E66.01 Morbid (severe) obesity due to excess calories; Z21 Asymptomatic human immunodeficiency virus [HIV] infection status
CPT/HCPCS: 36415; 80053; 80061; 82306; 82607; 82728; 82746; 83036; 83525; 83540; 84425; 84443; 85025; 86140; 86359; 86360; 86481; 87536

== ENCOUNTER 2024-12-01 15:06 | Emergency (ER) | payer MEDICAID, SELFPAY ==
--- NOTE | 2024-12-01 15:09 | ED_ITS ---
HPI - Psych General Chief Complaint: Psychiatric Symptoms Stated Complaint: hearing voices? Time Seen by Provider: 12/01/24 16:44 Source: patient and family (brother/HCP) Mode of arrival: ambulatory Limitations: no limitations History of Present Illness ED Provider: FANI MAHONEY PA-C HPI Narrative: 49 year old female with pmhx significant for PTSD, mood disorder, cognitive impairment, HIV, asthma presents to the ED today with her brother/ HCP Tevin for concerns of paranoia/ hearing voices. Tevin states that patient has been paranoid about people following her. She has been calling EMS/ PD often to report this and on arrival, apparently refuses medical help. Tevin states that patient has history of similar requiring psych admission in the past. At present, patient has no complaints/ concerns. [place] SI/HI. Denies AH/VH/TH. Denies etoh consumption or illicit substance use. Related Data Previous Rx's ?Medication ?Instructions ?Recorded bictegravir 50 mg-emtricitabine 1 tab PO DAILY 30 days #30 tabs 02/05/24 200 mg-tenofovir alafenam 25 mg tablet (Biktarvy) Allergies Allergy/AdvReac Type Severity Reaction Status Date / Time IV contrast Allergy Unknown Anaphylaxis Uncoded 12/01/24 15:12 pollen Allergy Unknown unknown Uncoded 12/01/24 15:12 Review of Systems 2 Review of Systems: Yes all other systems are reviewed and are negative PMFSH Past Medical History Attestation statement: The following information was validated with the patient. Source: old records reviewed and nursing notes reviewed Medical History DJD (degenerative joint disease) Asthma Morbid obesity Asthenia HIV (human immunodeficiency virus infection) Bilateral primary osteoarthritis of knee Surgical History Hx of laparoscopic gastric banding Family History Family History Mother No problems noted. Father No problems noted. Social History Social History Household Members: Family Household Members Other:: Mother Housing: Apartment Do you presently have visiting nurse or other home services: Yes Alcohol intake: never Patient Tobacco Use Status: Former Tobacco user Tobacco use type: Cigarette Smoked in Last 30 Days: No e-Cigarette/Vaping Use: Never Used Second Hand Smoke Exposure: No Use of substances other than those prescribed or required for medical reasons: No Advance Directives: Yes Advance Directives on File: Yes Advance Directives Date on File: 02/07/24 Do you have a plan to hurt others: No Plan Patient : No service: No Current occupational status: disabled Current occupation: Right Handed Sexual orientation: Straight/Heterosexual Physical Exam 2 Vital Signs: Vital Signs: Last Vital Signs Temp 97.9 F 12/02/24 17:15 Pulse 70 12/02/24 17:15 Resp 17 12/02/24 17:15 BP 138/75 12/02/24 17:15 Pulse Ox 98 12/02/24 17:15 O2 Del Method Room Air 12/02/24 17:15 BMI result Body Mass Index 51.3 hypertensive, vitals are otherwise wnl General: Well appearing, in no acute distress. Skin: Warm, dry, intact. No rashes or lesions. Head: Normocephalic, atraumatic. EENT: Hearing is intact b/l. Conjunctiva clear. Sclera is anicteric. PERRLA. EOM intact. Moist mucous membranes.? Cardiac: Chest wall symmetric. RRR Lungs: Normal respiratory effort without accessory muscle use. CTA bilaterally Abdomen: Soft, non-tender, non-distended. No rebound tenderness or guarding. Positive BS x4. Back: No midline spinous or paraspinal tenderness. No step off deformity. Ext: Upper and lower extremities atraumatic, without tenderness, deformity, swelling or erythema. Neuro: AOx3. Normal speech. CN 2-12 grossly intact. Ambulating with steady gait Course Course Course Narrative: Bela Peterson PARIMUTUEL CLERK 12/01 1510 This is a rapid medical exam. Deferred additional HPI, ROS, PE to primary provider. 49yo female with history of PTSD, mood disorder, HIV here with family with concern that she is hearing voices. Has not been taking her medications or following up with her providers. Has not been sleeping. Seems to be responding to internal stimuli, paranoid. Will obtain labs, NOBLES VSS Reevaluation(s) Reevaluation #1: 2030 -- CBC showing leukopenia, appears to be around patient's baseline. No anemia. H&H stable. Chemistry without acute electrolyte abnormality requiring intervention. Random glucose 125, no anion gap. Liver function around baseline. No RILEY. > UA/UDS pending > placed in physician observation pending CARE assessment/ disposition Medications Administered Discontinued Medications Generic Name Dose Route Start Last Admin Trade Name Talatq PRN Reason Stop Dose Admin Haloperidol Lactate 5 mg 12/02/24 16:42 12/02/24 17:09 Haloperidol Lactate 5 Mg/Ml Vial IM 12/02/24 16:43 Not Given ONCE ONE Midazolam HCl 5 mg 12/02/24 16:42 12/02/24 17:10 Midazolam Hcl 5 Mg/Ml Vial IM 12/02/24 16:43 Not Given ONCE ONE Medical Decision Making Medical Decision Making [facility] Narrative: 49 year old female with pmhx significant for PTSD, mood disorder, cognitive impairment, HIV, asthma presents to the ED today with her brother/ HCP Tevin for concerns of paranoia/ hearing voices. Differential diagnosis includes anemia, electrolyte abnormality, mood disorder, anxiety, depression, SI, polysubstance abuse Presentation not consistent with acute organic causes to include delirium, dementia or drug induced disorders (acute ingestions or withdrawal; no evidence of toxidrome).? Will consult care team to evaluate the patient. Will also obtain labs for medical clearance. Plan: labs, EKG, ASA/APAP levels, ETOH level, UDS, care team consultation, reassessment Crisis evaluated patient. Patient cleared by crisis. OKay to discharge home per crisis team. Differential Diagnosis Differential Diagnoses: The differential diagnosis associated with the presentation includes as above. Admission/Observation Consideration of admission/observation: Escalation of care including admission/observation considered Lab Data [facility] Lab Attestation statement: I reviewed the patient's lab results. as above. 12/01/24 15:26 12/01/24 15:26 Labs: Lab Results 12/01/24 12/02/24 Range/Units 15: 08:04 WBC 3.3 L (4.8-10.8) X10*3/uL RBC 4.36 (4.20-5.50) X10*6/uL Hgb 13.3 (12.0-16.0) g/dl Hct 39.6 (37.0-47.0) % MCV 90.8 (80.0-98.0) fL MCH 30.5 (27.0-33.0) pg MCHC 33.6 (31.0-35.0) g/dl RDW 13.2 (11.0-16.0) % Plt Count 177 (160-400) X10*3/uL MPV 11.4 (9.4-12.3) fL Immature Gran % (Auto) 0.3 (0.0-0.4) % Neut % (Auto) 52.7 (45-73) % Lymph % (Auto) 35.7 (20-40) % [place] % (Auto) 9.2 (2-11) % Eos % (Auto) 1.2 (0-4) % Baso % (Auto) 0.9 (0-2) % Lymph # (Auto) 1.2 (1.2-4.9) X10*3/uL [place] # (Auto) 0.3 (0.1-1.2) X10*3/uL Eos # (Auto) 0.0 (0.0-0.4) X10*3/uL Baso # (Auto) 0.0 (0.0-0.2) X10*3/uL Abs Immat Gran (auto) 0.01 (0.00-0.03) X10*3/uL Absolute Neuts (auto) 1.7 L (2.0-8.3) x10*3/uL Absolute Nucleated RBC 0.000 (0.0-0.012) X10*3/uL Nucleated RBC % (auto) 0.0 (0.0-0.2) /100WBC Sodium 142 (135-145) mmol/L Potassium 3.8 (3.3-5.1) mmol/L Chloride 112 H (96-108) mmol/L Carbon Dioxide 21 L (22-29) mmol/L Anion Gap 13 (12-20) BUN 16 (9-16) mg/dL Creatinine 0.94 (0.5-1.4) mg/dL Estim Creat Clear Calc 91.5 Estimated GFR > 60 Random Glucose 125 H (60-115) mg/dL Calcium 9.7 (8.4-10.2) mg/dL Total Bilirubin 0.3 (0.0-1.0) mg/dL Direct Bilirubin 0.1 (0.0-0.5) mg/dL AST 20 (5-31) U/L ALT 13 (0-31) U/L Alkaline Phosphatase 56 (39-117) U/L Troponin I High Sens < 2.7 D (<3.5-17.0) ng/L Total Protein 8.0 (6.5-8.0) g/dL Albumin 4.2 (3.5-5.0) g/dL Ethyl Alcohol < 10 mg/dL Independent Historian Clinical information obtained from an independent historian. History obtained from or confirmed by: Other (brother/HCP) External Record Review External record reviewed: Inpatient record, Office record and Outpatient record Chronic Conditions Patient?s care impacted by: Other (PTSD, mood disorder, bipolar disorder) Social Determinants Patient?s care significantly limited by Social Determinants of Health including: Other Social Determinant of Health Critical Care Time Critical Care Time Critical Care Time: No Discharge Plan Discharge Clinical Impression: Auditory hallucination, Paranoia Patient Disposition: Home, Self-Care Prescriptions: No Action Biktarvy 50-200-25 mg tablet 1 tab PO DAILY 30 Days Qty: 30 1RF Interventions: Ruffin-Suicide Risk Severity Scale Last Done: 12/01/24 15:47 Print Language: Other
[2024-12-01 15:11] VITALS: BP 120/95; PULSE 91; RESP 17; TEMP 36.3; O2SAT 97; BMI 51.3
[2024-12-01 15:30] LABS: MANUAL DIFF FLAG NO
[2024-12-01 15:32] LABS: Hematocrit 39.6 % (37.0-47.0); Hemoglobin 13.3 g/dl (12.0-16.0); Imm Gran Abs Auto 0.01 X10*3/uL (0.00-0.03); Imm Gran Pct Auto 0.3 % (0.0-0.4); Lymphocytes Absolute Auto 1.2 X10*3/uL (1.2-4.9); Mean Corpuscular HGB Conc 33.6 g/dl (31.0-35.0); Mean Corpuscular Hemoglobin 30.5 pg (27.0-33.0); Mean Corpuscular Volume 90.8 fL (80.0-98.0); NRBC Abs Auto 0.000 X10*3/uL (0.0-0.012); NRBC Pct Auto 0.0 /100WBC (0.0-0.2); Platelet Count 177 X10*3/uL (160-400); Red Blood Count 4.36 X10*6/uL (4.20-5.50); White Blood Count 3.3 X10*3/uL (4.8-10.8)
[2024-12-01 15:47] VITALS: BP 120/95; PULSE 91; RESP 17; TEMP 36.3; O2SAT 97
[2024-12-01 15:50] LABS: Alanine Aminotransferase 13 U/L (0-31); Albumin Level 4.2 g/dL (3.5-5.0); Alkaline Phosphatase 56 U/L (39-117); Anion Gap 13 (12-20); Aspartate Amino Transferase 20 U/L (5-31); Blood Urea Nitrogen 16 mg/dL (9-16); Calcium 9.7 mg/dL (8.4-10.2); Carbon Dioxide 21 mmol/L (22-29); Chloride 112 mmol/L (96-108); Creatinine Clr Calc Pharmacy 91.5; Estimated Glomerular Filt Rate > 60; Potassium 3.8 mmol/L (3.3-5.1); Sodium 142 mmol/L (135-145); Total Protein 8.0 g/dL (6.5-8.0)
--- NOTE | 2024-12-01 15:51 | PC.NURSE ---
Patient presents to ED after brother reports patient hearing auditory hallucinations Patient denies hearing or seeing hallucination at this time. Denies SI, HI, substance abuse Brother reports patient has hx of pysch admission with recent erratic behavior. Brother believes patient hasnt been taking her medication or seeing PCP Patient calm and cooperative Sitter in place Patient changed over with community integration specialist Plan of care on going
--- NOTE | 2024-12-01 19:29 | PC.NURSE ---
Assumed care of pt, presents with erratic behavior for the last couple of days, per family pt is not taking medications, denies SI/HI. per family pt has been calling the police saying They are trying to take my son care team at bedside to eval pt
[2024-12-02 04:11] VITALS: BP 120/58; PULSE 75; RESP 16; TEMP 37; O2SAT 97
--- NOTE | 2024-12-02 07:40 | ECG_ITS ---
Test Reason : chest pain Blood Pressure : */* mmHG Vent. Rate : 66 BPM Atrial Rate : 66 BPM P-R Int : 154 ms QRS Dur : 90 ms QT Int : 402 ms P-R-T Axes : 26 14 -2 degrees QTcB Int : 421 ms Normal sinus rhythm Moderate voltage criteria for LVH, may be normal variant ( R in aVL , [place] product ) Nonspecific T wave abnormality Abnormal ECG When compared with ECG of 25-Jan-2024 09:16, Nonspecific T wave abnormality now evident in Lateral leads Referred By: Ximena Roberson Electronically Signed By: RADHA RODRÍGUEZ
--- NOTE | 2024-12-02 07:41 | PC.NURSE ---
Patient c/o chest pain mid sternal doesn't move Dima SHAFER notified. EKG, and troponin ordered.
[2024-12-02 08:10] VITALS: BP 142/81; PULSE 72; RESP 15; O2SAT 98
[2024-12-02 08:33] LABS: Troponin-I High Sensitivity < 2.7 ng/L (<3.5-17.0)
--- NOTE | 2024-12-02 09:57 | PC.NURSE ---
Patient went to bathroom and states she forgot to collect urine. Had a cup in bathroom but never put the cup under her stream.
--- NOTE | 2024-12-02 13:10 | PHA.MEDREC ---
Pharmacy Consult ? Medication Reconciliation Pharmacy has completed the medication reconciliation.Med rec complete, called [facility] pharmacy. Patient has only filled biktarvy in last 6 months, there was previous history of haldol 5 mg bid anf olanzapine 5 mg daily prn agitation.
[2024-12-02 17:15] VITALS: BP 138/75; PULSE 70; RESP 17; TEMP 36.6; O2SAT 98
[2024-12-02 17:32] VITALS: BP 138/75; PULSE 70; RESP 17; TEMP 36.6; O2SAT 98
== END 2024-12-02 17:49 | disposition home or self-care (01) ==
PROVIDERS: Nurse Practitioner Family; Emergency Provider Emergency Medicine Emergency Medical Services; PCP Internal Medicine
DX: F22 Delusional disorders (principal); F39 Unspecified mood [affective] disorder; F43.10 Post-traumatic stress disorder, unspecified; G31.84 Mild cognitive impairment of uncertain or unknown etiology; J45.909 Unspecified asthma, uncomplicated
CPT/HCPCS: 36415; 80048; 80076; 80307; 84484; 85025; 93005; 99285; S9485

== ENCOUNTER → 2024-12-02 07:40 | Outpatient (BNV) | payer MEDICAID, SELFPAY | PROVIDERS: Emergency Provider Emergency Medicine Emergency Medical Services; PCP Internal Medicine; Visit Provider Internal Medicine | DX: R94.31 Abnormal electrocardiogram [ECG] [EKG] (principal); R07.9 Chest pain, unspecified | CPT/HCPCS: 93010 ==

== ENCOUNTER 2024-12-30 18:33 | Emergency (ER) | payer MEDICAID, SELFPAY ==
[2024-12-30 18:38] VITALS: BP 160/110; PULSE 103; O2SAT 97
[2024-12-30 18:40] VITALS: BP 178/84; PULSE 77; RESP 18; TEMP 36.6; O2SAT 99; BMI 50.5
--- NOTE | 2024-12-30 19:11 | ECG_ITS ---
Test Reason : HYPERTENSION Blood Pressure : */* mmHG Vent. Rate : 67 BPM Atrial Rate : 67 BPM P-R Int : 174 ms QRS Dur : 92 ms QT Int : 424 ms P-R-T Axes : 49 6 19 degrees QTcB Int : 448 ms Normal sinus rhythm Moderate voltage criteria for LVH, may be normal variant ( R in aVL , [place] product ) Borderline ECG When compared with ECG of 02-Dec-2024 07:45, Nonspecific T wave abnormality, improved in Inferior leads Referred By: Dilcia Omer Electronically Signed By: RADHA RODRÍGUEZ
[2024-12-30 19:47] VITALS: BP 144/71; PULSE 74; RESP 18; TEMP 36.6; O2SAT 98
--- NOTE | 2024-12-30 19:49 | PC.NURSE ---
assumed care of pt, pt states she is no longer feeling anxious, b/p documented in vitals, pt denies headache at this time.
[2024-12-30 20:35] LABS: Hematocrit 42.5 % (37.0-47.0); NRBC Abs Auto 0.000 X10*3/uL (0.0-0.012); NRBC Pct Auto 0.0 /100WBC (0.0-0.2); PLT CLUMP 1; SCAN SMEAR FLAG 1; Troponin-I High Sensitivity 10.1 ng/L (<3.5-17.0)
[2024-12-30 20:37] LABS: Hemoglobin 13.8 g/dl (12.0-16.0); Imm Gran Abs Auto 0.04 X10*3/uL (0.00-0.03); Imm Gran Pct Auto 0.9 % (0.0-0.4); Lymphocytes Absolute Auto 1.3 X10*3/uL (1.2-4.9); MANUAL DIFF FLAG SCAN; Mean Corpuscular HGB Conc 32.5 g/dl (31.0-35.0); Mean Corpuscular Hemoglobin 29.4 pg (27.0-33.0); Mean Corpuscular Volume 90.6 fL (80.0-98.0); Red Blood Count 4.69 X10*6/uL (4.20-5.50)
[2024-12-30 20:42] LABS: Alanine Aminotransferase 22 U/L (0-31); Albumin Level 4.3 g/dL (3.5-5.0); Alkaline Phosphatase 76 U/L (39-117); Anion Gap 13 (12-20); Aspartate Amino Transferase 38 U/L (5-31); Blood Urea Nitrogen 16 mg/dL (9-16); Calcium 9.2 mg/dL (8.4-10.2); Carbon Dioxide 25 mmol/L (22-29); Chloride 106 mmol/L (96-108); Creatinine Clr Calc Pharmacy 116.2; Estimated Glomerular Filt Rate > 60; Magnesium 1.9 mg/dL (1.6-2.6); Potassium 4.1 mmol/L (3.3-5.1); Sodium 140 mmol/L (135-145); Total Protein 7.9 g/dL (6.5-8.0)
[2024-12-30 20:46] LABS: White Blood Count 4.6 X10*3/uL (4.8-10.8)
[2024-12-30 21:03] LABS: Platelet Count 157 X10*3/uL (160-400)
[2024-12-30 22:25] VITALS: BP 128/64; PULSE 68; TEMP 36.8; O2SAT 98
--- NOTE | 2024-12-30 22:43 | ED.GENADULT ---
HPI - General Adult General Chief complaint: General Medical Stated complaint: Anxiety Time Seen by Provider: 12/30/24 21:25 Source: patient, EMS, RN notes reviewed and old records reviewed Mode of arrival: EMS Limitations: no limitations History of Present Illness ED Provider: Dr. Sunni Orozco HPI narrative: 49-year-old female with a history of bipolar disorder with psychotic features, PTSD, HIV, asthma presenting with delusions of . Patient has previous hysterectomy. She presents stating ?I am nervous about the well-being of my baby. I am about 3-1/2 months ?. States that her blood pressure is running high despite taking her blood pressure medications. When I tell her that it is impossible to be without a uterus, she reports ?it is God's promise to me?. She states that she just knows she is and wants the fetus checked. She has been taking all of her medications as prescribed including HIV medications. Denies history of substance use or alcohol use. Denies other illness. Has been feeling well otherwise. Denies visual or auditory hallucination. Denies suicidality. Related Data Previous Rx's ?Medication ?Instructions ?Recorded bictegravir 50 mg-emtricitabine 1 tab PO DAILY 30 days #30 tabs 02/05/24 200 mg-tenofovir alafenam 25 mg tablet (Biktarvy) Allergies Allergy/AdvReac Type Severity Reaction Status Date / Time IV contrast Allergy Unknown Anaphylaxis Uncoded 12/30/24 18:59 pollen Allergy Unknown unknown Uncoded 12/30/24 18:59 Review of Systems Review of Systems: as per HPI, full review of systems performed and negative but for the above mentioned pertinent positives and negatives. PMFSH Past Medical History Medical History DJD (degenerative joint disease) Asthma Morbid obesity Asthenia HIV (human immunodeficiency virus infection) Bilateral primary osteoarthritis of knee Surgical History Hx of laparoscopic gastric banding Family History Family History Mother No problems noted. Father No problems noted. Social History Social History Household Members: Family Household Members Other:: Mother Housing: Apartment Do you presently have visiting nurse or other home services: Yes Alcohol intake: never Patient Tobacco Use Status: Former Tobacco user Tobacco use type: Cigarette Smoked in Last 30 Days: No e-Cigarette/Vaping Use: Never Used Second Hand Smoke Exposure: No Advance Directives: Yes Advance Directives on File: Yes Advance Directives Date on File: 02/07/24 Do you have a plan to hurt others: No Plan service: No Current occupational status: disabled Current occupation: Right Handed Sexual orientation: Straight/Heterosexual Physical Exam ED Exam Exam: GENERAL: Well-Appearing, conversant, no acute distress. SKIN: Normal skin color for ethnicity, warm, dry, no rashes noted. HEENT:? Normocephalic, atraumatic, no stridor, posterior oropharynx nonerythematous, dentition intact, EOMI. NECK: Soft, supple, full ROM, midline structures nontender, no step-offs, no deformities, no lymphadenopathy. CHEST: Heart regular rate and rhythm, no murmurs, symmetric chest rise and fall. PULMONARY: Clear to auscultation bilaterally, no labored breathing, no wheezes/rhales/rhonchi. ABDOMINAL: Soft, nondistended, nontender, positive bowel sounds in all quadrants. : Deferred. MUSCULOSKELETAL: Normal tone, full range of motion, no deformities, no peripheral edema. NEURO: Alert and oriented x3, CN II through XII intact, equal strength and sensation bilateral upper and lower extremities, no focal neurologic deficits.? PSYCHIATRIC: Flat affect, fluid speech, good eye contact and appropriate demeanor, delusional. Vital Signs: Vital Signs - 24 hr 12/30/24 18:40 12/30/24 19:47 12/30/24 22:25 Temperature 97.8 F 97.8 F 98.2 F Pulse Rate 77 74 68 Respiratory Rate 18 18 Blood Pressure 178/84 H 144/71 H 128/64 Pulse Oximetry 99 98 98 Oxygen Delivery Method Room Air Room Air BMI result Body Mass Index 50.5 Medical Decision Making Medical Decision Making MDM Narrative: Patient presents with psychologic complaints. Differential diagnosis includes suicidal ideations, homicidal ideations, depression, anxiety, mood disorder, decompensated mental illnesses such as schizophrenia or bipolar disorder, medication noncompliance, among many others. Medical clearance protocol was initiated. Patient's workup today is reassuring. Blood work unremarkable. Pancytopenia is relatively baseline. Patient understands that it is impossible for her to be but is fixated on the idea that God has impregnated her. That being said, I feel she has capacity to make decisions. She is not suicidal she is delusional but otherwise coherent, making sense and has follow up with her psychiatrist tomorrow. Encouraged return to emergency department with any new or worsening symptoms. Discharged in stable condition. Differential Diagnosis Differential Diagnoses: The differential diagnosis associated with the presentation includes (as above) Admission/Observation Consideration of admission/observation: Escalation of care including admission/observation considered Lab Data MDM Lab Attestation statement: I reviewed the patient's lab results. 12/30/24 20:10 12/30/24 20:10 Labs: Lab Results 12/30/24 Range/Units 20:10 WBC 4.6 L (4.8-10.8) X10*3/uL RBC 4.69 (4.20-5.50) X10*6/uL Hgb 13.8 (12.0-16.0) g/dl Hct 42.5 (37.0-47.0) % MCV 90.6 (80.0-98.0) fL MCH 29.4 (27.0-33.0) pg MCHC 32.5 (31.0-35.0) g/dl RDW 13.1 (11.0-16.0) % Plt Count 157 L (160-400) X10*3/uL MPV 12.6 H (9.4-12.3) fL Immature Gran % (Auto) 0.9 H (0.0-0.4) % Neut % (Auto) 59.2 (45-73) % Lymph % (Auto) 29.3 (20-40) % [place] % (Auto) 7.9 (2-11) % Eos % (Auto) 2.0 (0-4) % Baso % (Auto) 0.7 (0-2) % Lymph # (Auto) 1.3 (1.2-4.9) X10*3/uL [place] # (Auto) 0.4 (0.1-1.2) X10*3/uL Eos # (Auto) 0.1 (0.0-0.4) X10*3/uL Baso # (Auto) 0.0 (0.0-0.2) X10*3/uL Abs Immat Gran (auto) 0.04 H (0.00-0.03) X10*3/uL Absolute Neuts (auto) 2.7 (2.0-8.3) x10*3/uL Absolute Nucleated RBC 0.000 (0.0-0.012) X10*3/uL Nucleated RBC % (auto) 0.0 (0.0-0.2) /100WBC Smear Tech's Comments VERIFIED Sodium 140 (135-145) mmol/L Potassium 4.1 (3.3-5.1) mmol/L Chloride 106 (96-108) mmol/L Carbon Dioxide 25 (22-29) mmol/L Anion Gap 13 (12-20) BUN 16 (9-16) mg/dL Creatinine 0.76 (0.5-1.4) mg/dL Estim Creat Clear Calc 116.2 Estimated GFR > 60 Random Glucose 101 (60-115) mg/dL Calcium 9.2 (8.4-10.2) mg/dL Magnesium 1.9 (1.6-2.6) mg/dL Total Bilirubin 0.2 (0.0-1.0) mg/dL AST 38 H (5-31) U/L ALT 22 (0-31) U/L Alkaline Phosphatase 76 (39-117) U/L Troponin I High Sens 10.1 D (<3.5-17.0) ng/L Total Protein 7.9 (6.5-8.0) g/dL Albumin 4.3 (3.5-5.0) g/dL Beta HCG, Quant < 2 mIU/mL Independent Historian Clinical information obtained from an independent historian. History obtained from or confirmed by: EMS External Record Review External record reviewed: Inpatient record Chronic Conditions Patient?s care impacted by: Other (Bipolar disorder with psychotic features) Social Determinants Patient?s care significantly limited by Social Determinants of Health including: Other Social Determinant of Health Discharge Plan Discharge Clinical Impression: Delusion of , Bipolar disorder with psychotic features Patient Disposition: Home, Self-Care Instructions: Anxiety (ED) Additional Instructions: Keep your appointment with David tomorrow. Return to the hospital with any thoughts of self-harm, worsening anxiety or depression, or any new symptom that concerns you. Continue taking all of your medications as prescribed. Prescriptions: No Action Biktarvy 50-200-25 mg tablet 1 tab PO DAILY 30 Days Qty: 30 1RF Interventions: ED Discharge Assessment Last Done: 12/30/24 23:38 Discharge Date/Time: 12/30/24 23:56 Print Language: Other
[2024-12-30 23:38] VITALS: BP 110/71; PULSE 68; RESP 16; TEMP 36.7; O2SAT 96
--- NOTE | 2024-12-30 23:41 | PC.NURSE ---
pt using pt phone to call ride.
== END 2024-12-30 23:56 | disposition home or self-care (01) ==
PROVIDERS: Physician Assistant Medical; Emergency Provider Emergency Medicine; PCP Internal Medicine
DX: F31.5 Bipolar disorder, current episode depressed, severe, with psychotic features (principal); F41.9 Anxiety disorder, unspecified; R94.31 Abnormal electrocardiogram [ECG] [EKG]; Z79.899 Other long term (current) drug therapy
CPT/HCPCS: 36415; 80053; 83735; 84484; 84702; 85025; 93005; 99283; 99284

== ENCOUNTER → 2024-12-30 19:11 | Outpatient (BNV) | payer MEDICAID, SELFPAY | PROVIDERS: Emergency Provider Emergency Medicine; PCP Internal Medicine; Visit Provider Internal Medicine | DX: I10 Essential (primary) hypertension (principal) | CPT/HCPCS: 93010 ==